=== PATIENT | male | born 1940 | race Caucasian/White ===

== ENCOUNTER 2019-01-17 16:03 | Emergency (ER) | payer MEDICARE, OTHER ==
[~2019-01-17] VITALS: Ht 175.3 cm; Wt 95.5 kg
[~2019-01-17 16:03] MED LIST: CALAMINE LOTIO177 ML TP; CYCLOBENZAPRINE10 MG PO; ELAVIL10 MG PO; FISH OIL 1,0001 CA1 PO; FLOMAX0.4 MG PO; HYDROCODONE-APA1 TAB PO; LORTAB 5/500 TA1 TA2 PO; NORVASC2.5 MG PO; PRAVACHOL40 MG PO; ZOVIRAX800 MG PO; ZYLOPRIM300 MG PO; [UNRECOGNIZED DRUG - OTHER] PO
[2019-01-17 16:05] VITALS: BP 121/71; Ht 175.3 cm; Wt 95.5 kg
[2019-01-17 16:28] LABS: BASOPHILS 0.1 % (0-2); EOSINOPHILS 0.6 % (0-7); HEMATOCRIT 28.4 % (42.0-54.0); HEMOGLOBIN 9.4 g/dL (13.5-17.5); IMMATURE GRANULOCYTES 0.1 % (0-5); LYMPHOCYTES 13.3 % (15-50); MCH 33.2 pg (26.0-34.0); MCHC 33.1 g/dL (31.0-37.0); MCV 100.4 fL (80.0-100.0); MEAN PLATELET VOLUME 10.7 fL (7.4-10.4); NEUTROPHILS 74.9 % (40-80); RBC 2.83 10x6/uL (4.20-6.10); RDW 13.4 % (11.5-14.5); WBC 8.1 10x3/uL (4.8-10.8)
[2019-01-17 16:39] LABS: PLATELET COUNT 207 10x3/uL (130-400)
[2019-01-17 16:46] LABS: APTT 33.9 SECONDS (22.8-39.4); INR 1.18 (0.85-1.17); PROTIME 14.5 SECONDS (11.6-15.0)
[2019-01-17 16:51] LABS: ALBUMIN 2.9 g/dL (3.4-5.0); ALKALINE PHOSPHATASE 79 U/L (46-116); ALT (SGPT) 21 U/L (10-68); BILIRUBIN - TOTAL 0.84 mg/dL (0.2-1.3); CALC OSMOLALITY 291 mosm/kg (275-300); CALCIUM 8.7 mg/dL (8.5-10.1); CARBON DIOXIDE 22.9 mmol/L (21.0-32.0); CHLORIDE - SERUM 101 mmol/L (98-107); CREATININE - SERUM 3.2 mg/dL (0.6-1.3); GLUCOSE 104 mg/dL (74-106); POTASSIUM - SERUM 4.5 mmol/L (3.5-5.1); PROTEIN - SERUM 7.4 g/dL (6.4-8.2); SODIUM 136 mmol/L (136-145); UREA NITROGEN 69 mg/dL (7-18); eGFR NON AFRICAN AMERICAN 20 mL/min (90-120)
[2019-01-17 17:03] LABS: CREATINE KINASE 87 UL (21-232); MAGNESIUM - SERUM 1.7 mg/dL (1.8-2.4); TROPONIN-I 0.039 ng/mL (0.000-0.060)
--- NOTE | 2019-01-21 13:14 | HP ---
PATIENT: NAYAN TATUM MEDICAL RECORD: [id number] ACCOUNT: [id number] LOCATION:[facility] : 39 ADMISSION DATE: 01/17/19 PCP: LYNN MEANS DO HISTORY AND PHYSICAL EXAMINATION HISTORY OF PRESENT ILLNESS: Mr. Tatum is a 78-year-old white male that is in the clinic today complaining of increasing shortness of breath for the last week or so. His normal oxygen saturation on room air runs in the mid to upper 90s, has to wear oxygen at night. Since Sunday, it has been running in the mid 80s without oxygenation. He had an echo done on Sunday, which revealed normal left ejection fraction. There was some grade I diastolic dysfunction. There was no significant valvular issues. A copy of this echo is sent with the patient. Today his chest x-ray shows a moderate left-sided pleural effusion. After his echo, he was sent to the Emergency Room because of hypoxia. He was seen in the Emergency Room, but left AMA because he felt he needed to see a correctional officer chief. The ER physician felt this was more of a renal issue. His creatinine had jumped from his baseline of around 2.2 to over 3. Over the weekend, he has been wearing his oxygen around the clock and states his weight has stayed about the same. As long as he stays perfectly still, he does fine. When he moves around, he has shortness of breath. He has a history of previous vugwf-dy-wmvfjde renal failure several years ago that was secondary to an obstructive uropathy. He underwent urological procedure by Dr. Lowry and that has improved since then. He denies any voiding issues at this time. PAST MEDICAL AND CURRENT MEDICAL HISTORY: Significant for GERD, lower limb weakness, chronic low back pain, neuropathy, obesity, chronic renal insufficiency, hyperlipidemia, hypertension, obstructive sleep disorder, gout, and BPH. PAST SURGICAL HISTORY: Include a previous tibia fracture, hernia repair in 2014, colonoscopy secondary to polyps in 2013, a cystoscopy with stent placement in 2013, and a hernia repair in 2011, cataract surgery in 2006 in 2005. ALLERGIES AND INTOLERANCES: INCLUDE SULFA. HOME MEDICATIONS: Include L-methylfolate/B6/B12 /2 one tablet a day, omeprazole 20 mg a day, furosemide 20 mg a day, tamsulosin 0.4 daily, amlodipine 2.5 mg once a day, allopurinol 100 mg a day, omega 3, and clotrimazole cream as needed. FAMILY HISTORY: Noncontributory. SOCIAL HISTORY: The patient is a former smoker. He does not drink alcohol. REVIEW OF SYSTEMS: Significant for recent increasing shortness of breath that is markedly worsened with any type of exertion. He denies any chest pain. He denies any palpitation. He does drink water on a pretty steady basis. He does complain of some increasing edema of his lower extremities. He denies any chest pain. He denies any abdominal pain, constipation or diarrhea. PHYSICAL EXAMINATION: GENERAL: He is obese. He is in no distress. He is wearing O2 at this time. HEENT: Sclerae nonicteric. HEART: Regular at this time with the rate in the 80s. LUNGS: Clear. HISTORY AND PHYSICAL [id number] NAYAN TATUM ABDOMEN: With diminished breath sounds in the left with some rales. EXTREMITIES: Reveal 2+ edema. NEUROLOGIC: Without any gross focal deficits. Gait, he ambulates with a walker. IMPRESSION: 1. Bklpc-ze-twhhtbd renal failure. 2. Suspect congestive heart failure secondary to fpjdo-vb-zyvxfym renal failure. 3. Hypoxia. 4. Obesity. 5. Hypertension. 6. Gout. 7. Neuropathy. 8. Gastroesophageal reflux disease. 9. Chronic renal insufficiency. 10. Obstructive sleep disorder. PLAN: Admit. We will send copy of echo with the patient. He had nephrology and cardiology consults. Start some IV Lasix. See orders for rest of plan. TRANSINT:[id number] Voice Confirmation ID: [id number] DOCUMENT ID: [id number] LYNN MEANS DO at 1314 CC: [id number] DICTATION DATE: 01/20/19 1412 TOP HAT BODY MAKER: 01/20/19 1430 DEP ER 01/17/19 [facility] [address] [place] [address]
== END 2019-01-17 19:26 | disposition left against medical advice (07) ==
LOC: D.ER 16:03
PROVIDERS: Emergency Medicine
DX: E87.70 Fluid overload, unspecified (principal); D64.9 Anemia, unspecified; J90 Pleural effusion, not elsewhere classified; N28.9 Disorder of kidney and ureter, unspecified; R06.02 Shortness of breath

== ENCOUNTER 2019-01-20 15:20 | Inpatient (IN) | payer OTHER ==
[~2019-01-20] VITALS: Ht 175.3 cm; Wt 93.6 kg
[2019-01-20] MEDS ORDERED: LASIX20 MG PO (15:48)
[2019-01-20] MEDS ORDERED: OMEPRAZOLE20 M1 PO (15:49)
[2019-01-20 15:50] VITALS: BP 140/72; BMI 30.5
--- NOTE | 2019-01-20 16:41 | NUR ---
1545-RECEIVED TO ROOM VIA WHEELCHAIR WITH GLASSES ON. PLACED ON NASAL CANNULA AT 2L. PATIENT HAS 2+ EDEMA TO BILATERAL LOWER LEGS. FALL PRECAUTIONS IN PLACE ALAON WITH GLADIS MAT ALARM ON AND EXPLAINED TO PATIENT. CALL LIGHT IN USE.
--- NOTE | 2019-01-20 16:50 | NUR ---
URINE TO LAB ORDERED.
[2019-01-20 16:56] LABS: BASOPHILS 0.1 % (0-2); EOSINOPHILS 0.6 % (0-7); HEMATOCRIT 27.9 % (42.0-54.0); HEMOGLOBIN 9.3 g/dL (13.5-17.5); IMMATURE GRANULOCYTES 0.3 % (0-5); LYMPHOCYTES 15.7 % (15-50); MCH 33.1 pg (26.0-34.0); MCHC 33.3 g/dL (31.0-37.0); MCV 99.3 fL (80.0-100.0); MEAN PLATELET VOLUME 11.3 fL (7.4-10.4); MONOCYTES 13.2 % (2-11); NEUTROPHILS 70.1 % (40-80); RBC 2.81 10x6/uL (4.20-6.10); RDW 13.2 % (11.5-14.5)
[2019-01-20 16:57] LABS: PLATELET COUNT 254 10x3/uL (130-400)
[2019-01-20 17:13] LABS: APPEARANCE HAZY (CLEAR); BILIRUBIN NEGATIVE (NEGATIVE); COLOR YELLOW (YELLOW); GLUCOSE NEGATIVE (NEGATIVE); KETONE NEGATIVE (NEGATIVE); NITRITE NEGATIVE (NEGATIVE); PROTEIN 1+ mg/dL (NEGATIVE); SPECIFIC GRAVITY 1.015 (1.005-1.020); UROBILINOGEN NORMAL (NORMAL)
[2019-01-20 17:15] LABS: EPITHELIAL CELLS 0-5 /hpf (0-5); RED CELLS - URINE 0-5 /hpf (0-5); WHITE CELLS - URINE 25-50 /hpf (0-5)
[2019-01-20 17:15] LABS: ALBUMIN 2.8 g/dL (3.4-5.0); ALKALINE PHOSPHATASE 79 U/L (46-116); ALT (SGPT) 27 U/L (10-68); BILIRUBIN - TOTAL 0.71 mg/dL (0.2-1.3); CALC OSMOLALITY 295 mosm/kg (275-300); CALCIUM 8.5 mg/dL (8.5-10.1); CARBON DIOXIDE 23.4 mmol/L (21.0-32.0); CHLORIDE - SERUM 101 mmol/L (98-107); GLUCOSE 96 mg/dL (74-106); POTASSIUM - SERUM 5.1 mmol/L (3.5-5.1); PROTEIN - SERUM 6.6 g/dL (6.4-8.2); SODIUM 137 mmol/L (136-145); UREA NITROGEN 75 mg/dL (7-18); eGFR NON AFRICAN AMERICAN 21 mL/min (90-120)
[2019-01-20 17:21] LABS: MAGNESIUM - SERUM 1.7 mg/dL (1.8-2.4); PHOSPHOROUS 4.1 mg/dL (2.5-4.9); TROPONIN-I < 0.017 ng/mL (0.000-0.060)
[2019-01-20 17:25] LABS: BACTERIA MODERATE /hpf (NONE SEEN)
[2019-01-20 18:17] LABS: ERYTHROCYTE SEDIMENTATION RATE 120 mm/hr (0-20)
--- NOTE | 2019-01-20 19:15 | NUR ---
ALERT/AWAKE ORIENTED X4. RR 18 EVEN NON-LABORED ON 02 AT 2L/NC. TELEMETRY SHOWS 145 AFLUTTER. CARDIZEM/TIAZAC 125MG PO HAD BEEN GIVEN AT 1752. WILL CONT TO MONITOR CLOSELY. DENIES PAIN OR ANY NEEDS.
[2019-01-20 20:00] VITALS: BP 106/55
[2019-01-20 20:04] LABS: % SATURATION 16 % (15-55); IRON 29 ug/dl (35-150); TOTAL IRON BIND CAPACITY 176 ug/dl (260-445); UNSAT IRON BIND CAPACITY 147 ug/dl (150-375)
--- NOTE | 2019-01-20 21:55 | NUR ---
ADMIN SCHED LEVAQUIN PO WITH SIPS OF WATER SWALLOWING WITHOUT DIFFICULTY. TELEMETRY SHOWS 122 ATRIAL FLUTTER. DENIES ANY DISCOMFORTS. STATING HE WANTS THE LIGHTS OUT TO SLEEP.
[2019-01-21 00:59] VITALS: BP 102/60
[2019-01-21 07:16] LABS: ANION GAP 16.5 mmol/L (8-16); CALCIUM 8.4 mg/dL (8.5-10.1); CREATININE - SERUM 3.5 mg/dL (0.6-1.3); POTASSIUM - SERUM 4.5 mmol/L (3.5-5.1)
[2019-01-21 07:24] LABS: BASOPHILS 0.1 % (0-2); EOSINOPHILS 0.4 % (0-7); HEMATOCRIT 26.7 % (42.0-54.0); HEMOGLOBIN 8.8 g/dL (13.5-17.5); IMMATURE GRANULOCYTES 0.1 % (0-5); LYMPHOCYTES 14.1 % (15-50); MCH 32.7 pg (26.0-34.0); MCV 99.3 fL (80.0-100.0); MEAN PLATELET VOLUME 11.1 fL (7.4-10.4); MONOCYTES 12.9 % (2-11); NEUTROPHILS 72.4 % (40-80); PLATELET COUNT 274 10x3/uL (130-400); RBC 2.69 10x6/uL (4.20-6.10); RDW 13.1 % (11.5-14.5); WBC 7.8 10x3/uL (4.8-10.8)
--- NOTE | 2019-01-21 07:40 | NUR ---
ASSESSMENT COMPLETED. ALERT AND ORIENTEDTELEMERTY SHOWS FLUTTER 73. O2 AT 2 L/M PER NC. RIGHT WRIST SL. PT IS ON FALL RISK. DENIES ANY NEEDS. SR UP WITH CALL LIGHT IN REACH.
[2019-01-21 10:25] VITALS: BP 95/51
--- NOTE | 2019-01-21 11:51 | NUR ---
PT STARTED ON CORDARONE DRIP.
[2019-01-21 12:54] VITALS: Ht 175.3 cm; Wt 93.6 kg
--- NOTE | 2019-01-21 13:35 | NUR ---
I have reviewed this patient and I concur with the Shift Assessment completed by the Licensed Practical Nurse today this shift.
[2019-01-21 15:55] VITALS: BP 95/52
--- NOTE | 2019-01-21 17:45 | NUR ---
PT RESTING IN BED ALERT AND ORIENTED. PT ANXIOUS ABOUT TEST RESULTS. BED LOW CALL LIGHT WITHIN REACH BED LOW CALL LIGHT WITHIN REACH. WILL CONTINUE TO MONITOR.
[2019-01-21 18:30] VITALS: BP 100/56
[2019-01-21 20:48] VITALS: BP 101/58
[2019-01-22] VITALS (7 sets, daily range): BP systolic 99–118; BP diastolic 52–84
--- NOTE | 2019-01-22 00:58 | NUR ---
PT RESTING IN BED WITH EYES CLOSED RR EVEN AND UNLABORED. BED LOW CALL LIGHT WITHIN REACH. WILL CONTINUE TO MONITOR.
--- NOTE | 2019-01-22 03:32 | NUR ---
PT RESTING COMFORTABLY IN BED WITH EYES CLOSED. RR EVEN AND UNLABORED. IV INFUSING AT 17ML/HR. SEE MAR. BED LOW CALL LIGHT WITHIN REACH. WILL CONTINUE TO MONITOR.
[2019-01-22 06:22] LABS: ANION GAP 17.6 mmol/L (8-16); CALCIUM 8.3 mg/dL (8.5-10.1); CARBON DIOXIDE 22.4 mmol/L (21.0-32.0); CREATININE - SERUM 3.8 mg/dL (0.6-1.3)
[2019-01-22 06:31] LABS: BASOPHILS 0.2 % (0-2); EOSINOPHILS 0.5 % (0-7); HEMATOCRIT 24.1 % (42.0-54.0); IMMATURE GRANULOCYTES 0.2 % (0-5); LYMPHOCYTES 18.7 % (15-50); MCH 32.5 pg (26.0-34.0); MCHC 33.2 g/dL (31.0-37.0); MONOCYTES 12.4 % (2-11); PLATELET COUNT 236 10x3/uL (130-400); RBC 2.46 10x6/uL (4.20-6.10); RDW 13.1 % (11.5-14.5)
[2019-01-22 07:22] LABS: FOLATE (FOLIC ACID) - SERUM >20.0 ng/mL (>3.0)
--- NOTE | 2019-01-22 14:31 | NUR ---
Nutrition follow-up: Diet: Renal PO intake ~75% of last 3 meals Labs reviewed Wt: 208# RDN following.
--- NOTE | 2019-01-22 19:42 | NUR ---
PT RESTING IN BED. AAO, NOURISHMENT PROVIDED. PT HAS EDEMA NOTED LOWER EXTREM, FIXED SOCKS, SLIP FREE SOCKS. PT WILL CALL FOR ASSIST WHEN NEEDED. NAME AND DATE PLACED ON BOARD. WILL CPOC
--- NOTE | 2019-01-22 21:38 | NUR ---
NIGHT MEDS GIVEN. FIXED TELEMETRY. PT WILL CALL FOR ASSIST WHEN NEEDED. WILL CPOC
[2019-01-23] VITALS: BP 109/53
[2019-01-23 04:00] VITALS: BP 103/54
[2019-01-23 05:36] LABS: BASOPHILS 0 % (0-2); EOSINOPHILS 2.1 % (0-7); HEMATOCRIT 24.8 % (42.0-54.0); HEMOGLOBIN 8.2 g/dL (13.5-17.5); IMMATURE GRANULOCYTES 0.4 % (0-5); LYMPHOCYTES 20.3 % (15-50); MCH 32.3 pg (26.0-34.0); MCHC 33.1 g/dL (31.0-37.0); MCV 97.6 fL (80.0-100.0); MEAN PLATELET VOLUME 10.8 fL (7.4-10.4); MONOCYTES 11.7 % (2-11); NEUTROPHILS 65.5 % (40-80); PLATELET COUNT 263 10x3/uL (130-400); RBC 2.54 10x6/uL (4.20-6.10); RDW 13.1 % (11.5-14.5); WBC 4.7 10x3/uL (4.8-10.8)
[2019-01-23 05:53] LABS: ANION GAP 17.7 mmol/L (8-16); CALCIUM 8.5 mg/dL (8.5-10.1); POTASSIUM - SERUM 3.7 mmol/L (3.5-5.1)
--- NOTE | 2019-01-23 06:46 | NUR ---
PT COMPLAINS OF AN INCREASED COUGH THAT IS PRODUCTIVE AT TIMES. ASKED IF ON A MEDICATION THAT COULD CAUSE COUGHING. ANSWERED QUESTIONS NURSE COULD. LASIX GIVEN ORDERED AND RETIMED. PT DENIES ANY OTHER NEEDS. WILL CPOC
[2019-01-23 08:06] VITALS: BP 110/62
[2019-01-23 11:45] VITALS: BP 105/83
--- NOTE | 2019-01-23 19:40 | NUR ---
BED LOW AND CALL LIGHT PUT WITH IN REACH PT MADE SEVERAL COMFORT REQUESTS AT THIS TIME. ALERT AND ORIENTED. IV AT TKO TO RT WRIST SKIN WARM AND DRY ...2LNC IN PLACE. LUNGS WITH SOME COURSENESS BUT GOOD AIR FLOW.
[2019-01-23 20:00] VITALS: BP 119/58
[2019-01-24 04:00] VITALS: BP 113/58
[2019-01-24 05:50] LABS: BASOPHILS 0.2 % (0-2); EOSINOPHILS 2.6 % (0-7); HEMATOCRIT 24.4 % (42.0-54.0); HEMOGLOBIN 8.1 g/dL (13.5-17.5); IMMATURE GRANULOCYTES 0.4 % (0-5); LYMPHOCYTES 19.5 % (15-50); MCH 32.7 pg (26.0-34.0); MCHC 33.2 g/dL (31.0-37.0); MCV 98.4 fL (80.0-100.0); MEAN PLATELET VOLUME 10.8 fL (7.4-10.4); MONOCYTES 11.8 % (2-11); NEUTROPHILS 65.5 % (40-80); PLATELET COUNT 256 10x3/uL (130-400); RBC 2.48 10x6/uL (4.20-6.10); RDW 13.2 % (11.5-14.5); WBC 4.6 10x3/uL (4.8-10.8)
[2019-01-24 05:57] LABS: ANION GAP 17.3 mmol/L (8-16); CALCIUM 8.5 mg/dL (8.5-10.1); CARBON DIOXIDE 21.8 mmol/L (21.0-32.0); CREATININE - SERUM 4.1 mg/dL (0.6-1.3); POTASSIUM - SERUM 4.1 mmol/L (3.5-5.1)
[2019-01-24 07:44] VITALS: BP 115/68
[2019-01-24 11:18] VITALS: BP 103/60
[2019-01-24 16:12] VITALS: BP 110/59
--- NOTE | 2019-01-24 19:42 | NUR ---
EVENING ROUNDS COMPLETED. REPORT RECEIVED. PT SITTING UP IN BED WITH EYES CLOSED, RR EVEN AND UNLABORED. NO S/S OF DISTRESS NOTED. OXYGEN AR 2.5 LITERS BY NASAL CANNULA. SIDE RAILS UP X2. WHITE BOARD UPDATED. CALL LIGHT IN REACH. WILL CTM.
[2019-01-24 21:01] VITALS: BP 103/53
[2019-01-25] VITALS (7 sets, daily range): BP systolic 113–140; BP diastolic 52–104
--- NOTE | 2019-01-25 00:21 | NUR ---
IV RESITED TO LEFT WRIST, 22 GAUGE
--- NOTE | 2019-01-25 02:59 | NUR ---
I have reviewed this patient and I concur with the Shift Assessment completed by the Licensed Practical Nurse today this shift.
[2019-01-25 04:57] LABS: BASOPHILS 0.2 % (0-2); EOSINOPHILS 2.4 % (0-7); HEMATOCRIT 24.8 % (42.0-54.0); HEMOGLOBIN 8.2 g/dL (13.5-17.5); IMMATURE GRANULOCYTES 0.5 % (0-5); MCH 32.4 pg (26.0-34.0); MCHC 33.1 g/dL (31.0-37.0); MEAN PLATELET VOLUME 10.4 fL (7.4-10.4); MONOCYTES 11.7 % (2-11); NEUTROPHILS 62.2 % (40-80); PLATELET COUNT 272 10x3/uL (130-400); RBC 2.53 10x6/uL (4.20-6.10); RDW 13.3 % (11.5-14.5); WBC 4.2 10x3/uL (4.8-10.8)
[2019-01-25 05:13] LABS: ANION GAP 16.6 mmol/L (8-16); CALCIUM 8.2 mg/dL (8.5-10.1); CREATININE - SERUM 4.1 mg/dL (0.6-1.3); POTASSIUM - SERUM 3.6 mmol/L (3.5-5.1)
--- NOTE | 2019-01-25 07:59 | NUR ---
PATIENT IS AWAKE AND ALERT. RECIEVED REPORT. PATIENT DENIES ANY OTHER NEEDS AT THIS TIME.
--- NOTE | 2019-01-25 18:16 | NUR ---
I have reviewed this patient and I concur with the Shift Assessment completed by the Licensed Practical Nurse today this shift.
--- NOTE | 2019-01-25 19:40 | NUR ---
EVENING ROUNDS COMPLETED. REPORT RECEIVED. PT SITTING UP IN BED WITH EYES OPEN, RR EVEN AND UNLABORED. OXYGEN AT 2.5 LITERS BY NASAL CANNULA. INTRODUCED SELF TO PT. PT DENIES FURTHER NEEDS AT THIS TIME. LEFT WRIST INFUSING NORMAL SALINE @ KVO. BED IN LOW POSITION. CALL LIGHT IN REACH. WILL CTM.
--- NOTE | 2019-01-26 03:36 | NUR ---
I have reviewed this patient and I concur with the Shift Assessment completed by the Licensed Practical Nurse today this shift.
[2019-01-26 05:41] LABS: BASOPHILS 0.2 % (0-2); EOSINOPHILS 2.1 % (0-7); HEMATOCRIT 24.5 % (42.0-54.0); IMMATURE GRANULOCYTES 0.2 % (0-5); MCH 32.3 pg (26.0-34.0); MCHC 32.7 g/dL (31.0-37.0); MCV 98.8 fL (80.0-100.0); MEAN PLATELET VOLUME 10.1 fL (7.4-10.4); MONOCYTES 12.9 % (2-11); NEUTROPHILS 60.6 % (40-80); PLATELET COUNT 255 10x3/uL (130-400); RBC 2.48 10x6/uL (4.20-6.10); RDW 13.5 % (11.5-14.5); WBC 4.2 10x3/uL (4.8-10.8)
[2019-01-26 05:51] VITALS: BP 112/50
[2019-01-26 06:14] LABS: ALBUMIN 2.2 g/dL (3.4-5.0); ANION GAP 15.7 mmol/L (8-16); BILIRUBIN - TOTAL 0.19 mg/dL (0.2-1.3); CALCIUM 8.3 mg/dL (8.5-10.1); CARBON DIOXIDE 21.8 mmol/L (21.0-32.0); CREATININE - SERUM 4.1 mg/dL (0.6-1.3); POTASSIUM - SERUM 3.5 mmol/L (3.5-5.1); PROTEIN - SERUM 6.2 g/dL (6.4-8.2)
[2019-01-26] MEDS ORDERED: METHYL B (10:16)
--- NOTE | 2019-01-26 12:23 | MORECARE ---
CASE MANAGEMENT DISCHARGE SUMMARY PATIENT: NAYAN TATUM UNIT: [id number] ADM DATE: 01/20/19 AGE: 78 : 39 SEX: M ROOM/BED: D.211 AUTHOR: KERI GARCIA PHYSICIAN: REFERRING PHYSICIAN: RENEE RAMOS MD DATE OF SERVICE: 01/26/19 Discharge Plan Patient Name: NAYAN TATUM Facility: [facility]:[place] : 1940 Planned Disposition: Inpatient Rehab Anticipated Discharge Date: 01/29/19 Discharge Date: Expected LOS: 9 Initial Reviewer: [email or web address] Initial Review Date: 01/26/2019 Generated: 01/26/19 1:23 pm DCPIA - Discharge Planning Initial Assessment Updated by [email or web address]: Jeny Arriaga on 01/26/19 12:20 pm * Is the patient Alert and Oriented? Yes * How many steps to enter\exit or inside your home? * PCP DR. MEANS * [facility] [place] * Preadmission Environment Home Alone * ADLs Independent * Equipment Oxygen Rolling Walker * Other Equipment BUILT IN SHOWER CHAIR 02 AT [facility] * List name and contact numbers for known caregivers / representatives who currently or will assist patient after discharge: MELONIE SANDHU ([facility]) [phone] EMERGENCY CONTACT * Verbal permission to speak to the caregivers and representatives has been obtained from the patient. Yes * Community resources currently utilized None * Additional services required to return to the preadmission environment? Yes * Can the patient safely return to the preadmission environment? Yes * Has this patient been hospitalized within the prior 30 days at any hospital? No Patient Name: NAYAN TATUM Page [id number] at 1223 All edits/amendments must be made on the electronic document DICTATION DATE: 01/26/19 1222 FURNACE RELINER: KIRAN 01/26/19 1222 RPT#: [id number] DC DATE: STATUS: ADM IN [facility] [address] [place] [address] END OF REPORT
--- NOTE | 2019-01-26 12:30 | MORECARE ---
CASE MANAGEMENT DISCHARGE SUMMARY PATIENT: NAYAN TATUM UNIT: [id number] ADM DATE: 01/20/19 AGE: 78 : 39 SEX: M ROOM/BED: D.2112 AUTHOR: JOSE,DOC PHYSICIAN: REFERRING PHYSICIAN: RENEE RAMOS MD DATE OF SERVICE: 01/26/19 Discharge Plan Patient Name: NAYAN TATUM Facility: [facility]:[place] : 1940 Planned Disposition: Inpatient Rehab Anticipated Discharge Date: 01/29/19 Discharge Date: Expected LOS: 9 Initial Reviewer: [email or web address] Initial Review Date: 01/26/2019 Generated: 01/26/19 1:29 pm Comments DCP- Discharge Planning Updated by [email or web address]: Jeny Arriaga on 01/26/19 11:[address] Patient Name: NAYAN TATUM Admission Status: Elective Accout number: [id number] Admission Date: 01-20-2019 : 1940 Admission Diagnosis:FLUID OVERLOAD, UNSPECIFIED Attending: RENEE RAMOS Current LOS: 6 Anticipated DC Date: 01-29-2019 Planned Disposition: Inpatient Rehab Primary Insurance: [employer] PPO Discharge Planning Comments: CM MET WITH PATIENT REGARDING D/C NEEDS AND PLANS. PATIENT STATES HE LIVES ALONE AND WILL BE GOING TO REHAB AT DISCHARGE. PATIENT STATED HE IS INDEPENDENT AT HOME AND HAS A WALKER, BUILT IN SHOWER CHAIR, AND O2 AT . [facility] IS THE PROVIDER OF O2. PATIENTS PCP IS DR. MEANS AND PHARMACY IS [facility] IN [place]. CM SPOKE WITH FERNANDA IN PT AND HE STATED PATIENT NEEDS REHAB. CM PRESENTED THE CHOICE FORM FOR REHAB AND PATIENT WANTED ONLY IP REHAB AND WOULD NOT CHOOSE ANOTHER. CM EXPLAINED THAT IP MAY NOT ACCEPT HIS INSURANCE AND HE STATED HE WANTED TO WAIT AND SEE SUNDAY. CM WILL CONTINUE TO FOLLOW PATIENT WITH D/C NEEDS AND PLANS. PCP [facility] [place] Janitor: Jeny Arriaga DCPIA - Discharge Planning Initial Assessment Updated by [email or web address]: Jeny Arriaga on 01/26/19 12:20 pm * Is the patient Alert and Oriented? Yes * How many steps to enter\exit or inside your home? * PCP DR. MEANS * Pharm[facility] [place] * Preadmission Environment Home Alone * ADLs Independent * Equipment Oxygen Rolling Walker * Other Equipment BUILT IN SHOWER CHAIR 02 AT [facility] * List name and contact numbers for known caregivers / representatives who currently or will assist patient after discharge: MELONIE SANDHU ([facility]) [phone] EMERGENCY CONTACT * Verbal permission to speak to the caregivers and representatives has been obtained from the patient. Yes * Community resources currently utilized None * Additional services required to return to the preadmission environment? Yes * Can the patient safely return to the preadmission environment? Yes * Has this patient been hospitalized within the prior 30 days at any hospital? No Coverage Notice Reviewer: [id number] Darren Arriaga Notice Issued Date-Time: 01/26/2019 12:00 Notice Type: Patient Choice Letter Notice Delivered To: Patient Relationship to Patient: Bindery Machine Operator Name: Delivery Method: HAND - Hand Delivered Floresita Days: Prior Verbal Notification: Recipient Understood Notice: Yes Recipient Signature: Yes Med Rec Note Co-signed by Attending: Coverage Notice Comment: PATIENT CHOSE IP REHAB WOULD NOT CHOOSE ANOTHER ONE Last DP export: 01/26/19 11:23 a Patient Name: NAYAN TATUM Page 80040 at 1230 All edits/amendments must be made on the electronic document DICTATION DATE: 01/26/191228 SUPERVISOR INSTRUMENT MECHANICS: KIRAN 01/26/19 1229 RPT#: [id number] DC DATE: STATUS: ADM IN [facility] [address] [place] [address] END OF REPORT
[2019-01-26 12:46] VITALS: BP 109/68
[2019-01-26 18:31] VITALS: BP 100/58
--- NOTE | 2019-01-26 19:31 | NUR ---
EVENING ROUNDS COMPLETED. REPORT RECEIVED. PT SITTING UP IN BED WITH EYES OPEN, RR EVEN AND UNLABORED. OXYGEN AT 2.5 LITERS BY NASAL CANNULA. BED IN LOW POSITION. INTRODUCED SELF TO PT. PT DENIES FURTHER NEEDS AT THIS TIME. NORMAL SALINE INFUSING AT KVO THROUGH LEFT WRIST PIV. CALL LIGHT IN REACH. WILL CTM.
[2019-01-26 20:07] VITALS: BP 125/40
[2019-01-27 00:02] VITALS: BP 119/58
--- NOTE | 2019-01-27 04:25 | NUR ---
I have reviewed this patient and I concur with the Shift Assessment completed by the Licensed Practical Nurse today this shift.
[2019-01-27 05:36] LABS: HEMOGLOBIN 8.1 g/dL (13.5-17.5); LYMPHOCYTES 22.3 % (15-50); MCHC 33.8 g/dL (31.0-37.0); PLATELET COUNT 241 10x3/uL (130-400); RBC 2.38 10x6/uL (4.20-6.10); RDW 13.5 % (11.5-14.5); WBC 4.4 10x3/uL (4.8-10.8)
[2019-01-27 05:38] LABS: MCV 100.8 fL (80.0-100.0)
[2019-01-27 05:40] LABS: ALBUMIN 2.2 g/dL (3.4-5.0); ANION GAP 13.3 mmol/L (8-16); BILIRUBIN - TOTAL 0.25 mg/dL (0.2-1.3); CALCIUM 8.1 mg/dL (8.5-10.1); CREATININE - SERUM 3.9 mg/dL (0.6-1.3); POTASSIUM - SERUM 3.3 mmol/L (3.5-5.1); PROTEIN - SERUM 6.1 g/dL (6.4-8.2)
[2019-01-27 06:01] VITALS: BP 86/59
[2019-01-27 07:48] VITALS: BP 111/55
[2019-01-27 11:20] VITALS: BP 115/57
--- NOTE | 2019-01-27 12:56 | NUR ---
ALERT AND ORIENTED X4. UP TO RESTROOM. HR 153 FLUTTER ON TELEMETRY. ASSIST BACK TO BED. CONKLIN. HR 146 FLUTTER. CALL MARGIE SMITH.
--- NOTE | 2019-01-27 13:10 | NUR ---
Nutrition Follow Up: Renal diet with 100% intake of meals BM yesterday Weight 199lb Pt has been eating good but did not eat lunch today due to nausea. Pt does not feel well at this time but reports no nutritional requests Will follow up per protocol
--- NOTE | 2019-01-27 13:22 | NUR ---
CALL REPORT HR CHANGE. 10mg BOLUS CARDIZEM ORDERED IV VIA TELEPHONE. ADMINISTER IV CARDIZEM ORDERED OVER 5 MINUTES. HR-110 FLUTTER ON TELEMETRY. CONTINUE PLAN OF CARE AND SAFETY PRECAUTIONS.
[2019-01-27 13:43] LABS: MAGNESIUM - SERUM 1.7 mg/dL (1.8-2.4); T4 THYROXIN - FREE 0.85 ng/dL (0.76-1.46); THYROID STIMULATING HORMONE 3.45 uIU/mL (0.36-3.74)
[2019-01-27 14:41] VITALS: BP 97/53
--- NOTE | 2019-01-27 19:30 | NUR ---
ASSISTED UP TO TOILET TOLERATED OK NO CHANGE ON MONITOR..BACK TO BED AND ASSISTED WITH COMFORT AND SNACK BED LOW AND CALL LIGHT IS IN REACH
[2019-01-27 21:48] VITALS: BP 90/52
[2019-01-28] VITALS (7 sets, daily range): BP systolic 82–117; BP diastolic 44–70
--- NOTE | 2019-01-28 03:42 | NUR ---
I have reviewed this patient and I concur with the Shift Assessment completed by the Licensed Practical Nurse today this shift.
[2019-01-28 05:46] LABS: BASOPHILS 0.1 % (0-2); EOSINOPHILS 0.2 % (0-7); IMMATURE GRANULOCYTES 0.2 % (0-5); LYMPHOCYTES 10.8 % (15-50); MCH 32.6 pg (26.0-34.0); MCHC 32.7 g/dL (31.0-37.0); MCV 99.5 fL (80.0-100.0); MEAN PLATELET VOLUME 10.4 fL (7.4-10.4); MONOCYTES 5.7 % (2-11); PLATELET COUNT 236 10x3/uL (130-400); RBC 2.21 10x6/uL (4.20-6.10); RDW 13.8 % (11.5-14.5)
[2019-01-28 06:41] LABS: ALBUMIN 2.3 g/dL (3.4-5.0); BILIRUBIN - TOTAL 0.31 mg/dL (0.2-1.3); CALCIUM 7.9 mg/dL (8.5-10.1); CARBON DIOXIDE 23.9 mmol/L (21.0-32.0); CREATININE - SERUM 3.8 mg/dL (0.6-1.3); PROTEIN - SERUM 5.3 g/dL (6.4-8.2)
[2019-01-28 06:51] LABS: ANION GAP 17.2 mmol/L (8-16); POTASSIUM - SERUM 4.1 mmol/L (3.5-5.1)
[2019-01-28 06:57] LABS: WBC 9.1 10x3/uL (4.8-10.8)
[2019-01-28 06:59] LABS: HEMOGLOBIN 7.2 g/dL (13.5-17.5)
--- NOTE | 2019-01-28 07:25 | NUR ---
ALERT AND ORIENTED X4. SITTING UP IN BED. CRITICAL LAB Hgb 7.2 CALLED TO MARGIE NEVILLE. 113 UNCONTROLLED AFIB ON TELEMETRY. DENIES ANY NEEDS. CONTINUE PLAN OF CARE AND SAFETY PRECAUTIONS.
--- NOTE | 2019-01-28 14:07 | NUR ---
ALERT AND ORIENTED X4. SITTING UP IN BED. NIECE AT BEDSIDE. UNCONTROLLED AFIB 102 ON TELEMETRY. BLOOD CONSENTS SIGNED ON CHART ON CHART. NO BM TODAY TO COLLECT. CONTINUE PLAN OF CARE AND SAFETY PRECAUTIONS.
--- NOTE | 2019-01-28 18:50 | NUR ---
ALERT AND ORIENTED X4. SITTING UP IN BED. INITIATE PRBC UNIT 1 TRANSFUSION. START TRANSFUSION RATE AT 75ml/HR FOR FIRST 15MINS. AFLUTTER ON TELEMETRY 70. DENIES ANY NEEDS AT THIS TIME. BP-106/51, R-16, O2 SAT 96% WITH 2.5L NC, T-98.6. REMAIN IN ROOM NEXT 15MINS TO MONITOR FOR REACTION. CONTINUE PLAN OF CARE AND SAFETY PRECAUTIONS.
--- NOTE | 2019-01-28 19:04 | NUR ---
ALERT AND ORIENTED X4. SITTING UP IN BED. NO SIGNS OF REACTION. INCREASE TRANSFUSION RATE TO 100mL/HR. T-97.9, R-16, O2 SAT-97% WITH 2.5L NC, BP-104/52. HAND OFF REPORT TO NIGHT NURSE
--- NOTE | 2019-01-28 19:33 | NUR ---
PT AWAKW AND ORIENTED X4 LOTS OF QUESTIONS ASKED ABOUT MEDS AND BLOOD TRANFUSIION. BED LOW SRX2 AND CALL LIGHT IN REACH
--- NOTE | 2019-01-28 19:36 | NUR ---
OT NOTE: PT COMPLETED BED MOB TASKS WITH MIN A. PT COMPLETED SIMPLE GROOMING WITH SET UP. THANK YOU, JOSE MARIA GARZA
--- NOTE | 2019-01-29 04:06 | NUR ---
I have reviewed this patient and I concur with the Shift Assessment completed by the Licensed Practical Nurse today this shift.
[2019-01-29 06:16] VITALS: BP 110/45
--- NOTE | 2019-01-29 07:30 | NUR ---
AM ROUNDS COMPLETED. INTRODUCED MYSELF TO PT PRIMARY RN FOR TODAYS SHIFT. PT IS A&O SITTING UP ON EDGE OF BED RESTING QUIETLY. SHIFT ASSESSMENT COMPLETED. PT STATES "IM GOING TO REHAB TODAY, OR SHOULD BE, GAUDENCIO BEEN HERE TOO LONG" EXPLAINED TO PT I WILL LOOK OVER EVERYTHING AND DISCUSS PLAN OF CARE. PT VOICED THANKS. NO CURRENT NEEDS. CL IN REACH, BED IN LOWEST, SIDE RAILS X2. WILL CPOC.
[2019-01-29 08:24] VITALS: BP 117/63
[2019-01-29 09:47] LABS: ALBUMIN 2.4 g/dL (3.4-5.0); ANION GAP 14.5 mmol/L (8-16); BASOPHILS 0.4 % (0-2); BILIRUBIN - TOTAL 0.41 mg/dL (0.2-1.3); CALCIUM 8.3 mg/dL (8.5-10.1); CARBON DIOXIDE 25.3 mmol/L (21.0-32.0); CREATININE - SERUM 3.7 mg/dL (0.6-1.3); EOSINOPHILS 1.3 % (0-7); HEMATOCRIT 26.1 % (42.0-54.0); IMMATURE GRANULOCYTES 1.3 % (0-5); LYMPHOCYTES 25.8 % (15-50); MCH 29.9 pg (26.0-34.0); MCHC 33.3 g/dL (31.0-37.0); MEAN PLATELET VOLUME 10.3 fL (7.4-10.4); MONOCYTES 13.6 % (2-11); NEUTROPHILS 57.6 % (40-80); PLATELET COUNT 224 10x3/uL (130-400); POTASSIUM - SERUM 3.8 mmol/L (3.5-5.1); PROTEIN - SERUM 5.7 g/dL (6.4-8.2); RDW 20.6 % (11.5-14.5)
[2019-01-29 09:48] LABS: MCV 89.7 fL (80.0-100.0); RBC 2.91 10x6/uL (4.20-6.10); WBC 5.6 10x3/uL (4.8-10.8)
[2019-01-29 09:49] LABS: HEMOGLOBIN 8.7 g/dL (13.5-17.5)
--- NOTE | 2019-01-29 11:02 | NUR ---
PT UP TO BEDSIDE CHAIR PERFORMING BED BATH HIMSELF. PT DENIES ANY HELP AND STATES HE IS FEELING PRETTY GOOD OVERALL AND HOPES TO GO TO REHAB SOON TO GET EVEN STRONGER. CL IN REACH, NO CURRRENT NEEDS. WILL CTM.
--- NOTE | 2019-01-29 11:20 | NUR ---
Rehab Prescreening Consult recieved and the chart has been reviewed. He is [employer] PPO Insurance which will require a preauth. All information will be submitted to them for review. Lucia Diane RN Clinical Liaison, Rehab
[2019-01-29 11:36] VITALS: BP 115/64
--- NOTE | 2019-01-29 15:00 | NUR ---
FAMILY AT BEDSIDE VISITING PT. PT INQUIRING ABOUT DISCHARGE HOWEVER NO NEW ORDERS. IT APPEARS WE ARE WAITING ON REHAB PLACEMENT AND ACCEPTANCE. WILL DISCUSS WITH PRIMARY AND CASE MANAGEMENT. PT VOICED THANKS AND DENIES ANY CURRENT PAIN OR NEEDS. CL IN REACH. WILL CPOC.
--- NOTE | 2019-01-29 15:16 | MORECARE ---
CASE MANAGEMENT DISCHARGE SUMMARY PATIENT: NAYAN TATUM UNIT: [id number] ADM DATE: 01/20/19 AGE: 78 : 39 SEX: M ROOM/BED: D.2112 AUTHOR: JOSE,DOC PHYSICIAN: REFERRING PHYSICIAN: RENEE RAMOS MD DATE OF SERVICE: 01/29/19 Discharge Plan Patient Name: NAYAN TATUM Facility: [facility]:[place] : 1940 Planned Disposition: Inpatient Rehab Anticipated Discharge Date: 01/30/19 Discharge Date: Expected LOS: 10 Initial Reviewer: [email or web address] Initial Review Date: 01/26/2019 Generated: 01/29/19 4:15 pm DCP- Discharge Planning Updated by [email or web address]: Jeny Arriaga on 01/26/19 11:[address] Patient Name: NAYAN TATUM Admission Status: Elective Accout number: [id number] Admission Date: 01-20-2019 : 1940 Admission Diagnosis:FLUID OVERLOAD, UNSPECIFIED Attending: RENEE RAMOS Current LOS: 6 Anticipated DC Date: 01-29-2019 Planned Disposition: Inpatient Rehab Primary Insurance: [employer] PPO Discharge Planning Comments: CM MET WITH PATIENT REGARDING D/C NEEDS AND PLANS. PATIENT STATES HE LIVES ALONE AND WILL BE GOING TO REHAB AT DISCHARGE. PATIENT STATED HE IS INDEPENDENT AT HOME AND HAS A WALKER, BUILT IN SHOWER CHAIR, AND O2 AT . [facility] IS THE PROVIDER OF O2. PATIENTS PCP IS DR. MEANS AND PHARMACY IS [facility] IN [place]. CM SPOKE WITH FERNANDA IN PT AND HE STATED PATIENT NEEDS REHAB. CM PRESENTED THE CHOICE FORM FOR REHAB AND PATIENT WANTED ONLY IP REHAB AND WOULD NOT CHOOSE ANOTHER. CM EXPLAINED THAT IP MAY NOT ACCEPT HIS INSURANCE AND HE STATED HE WANTED TO WAIT AND SEE SUNDAY. CM WILL CONTINUE TO FOLLOW PATIENT WITH D/C NEEDS AND PLANS. PCP [facility] [place] Real Estate Photographer: Jeny Arriaga DCPIA - Discharge Planning Initial Assessment Updated by [email or web address]: Jeny Arriaga on 01/26/19 12:20 pm * Is the patient Alert and Oriented? Yes * How many steps to enter\exit or inside your home? * PCP DR. MEANS * Pharmacy [facility] [place] * Preadmission Environment Home Alone * ADLs Independent * Equipment Oxygen Rolling Walker * Other Equipment BUILT IN SHOWER CHAIR 02 AT [facility] [place] [facility]IES * List name and contact numbers for known caregivers / representatives who currently or will assist patient after discharge: MELONIE SANDHU ([facility]) [phone] EMERGENCY CONTACT * Verbal permission to speak to the caregivers and representatives has been obtained from the patient. Yes * Community resources currently utilized None * Additional services required to return to the preadmission environment? Yes * Can the patient safely return to the preadmission environment? Yes * Has this patient been hospitalized within the prior 30 days at any hospital? No Coverage Notice Reviewer: [email or web address] Darren Arriaga Notice Issued Date-Time: 01/26/2019 12:00 Notice Type: Patient Choice Letter Notice Delivered To: Patient Relationship to Patient: Facing Grinder Name: Delivery Method: HAND - Hand Delivered Floresita Days: Prior Verbal Notification: Recipient Understood Notice: Yes Recipient Signature: Yes Med Rec Note Co-signed by Attending: Coverage Notice Comment: PATIENT CHOSE IP REHAB WOULD NOT CHOOSE ANOTHER ONE Last DP export: 01/26/19 11:30 a Patient Name: NAYAN TATUM Page 75050 at 1516 All edits/amendments must be made on the electronic document DICTATION DATE: 01/29/195 HOLLOW HANDLE BENCH WORKER: KIRAN 01/29/19 1515 RPT#: [id number] DC DATE: STATUS: ADM IN [facility] [address] [place] [address] END OF REPORT
--- NOTE | 2019-01-29 15:22 | MORECARE ---
CASE MANAGEMENT DISCHARGE SUMMARY PATIENT: NAYAN TATUM UNIT: [id number] ADM DATE: 01/20/19 AGE: 78 : 39 SEX: M ROOM/BED: D.2112 AUTHOR: JOSE,DOC PHYSICIAN: REFERRING PHYSICIAN: RENEE RAMOS MD DATE OF SERVICE: 01/29/19 Discharge Plan Patient Name: NAYAN TATUM Facility: [facility]:[employer] : 1940 Planned Disposition: Inpatient Rehab Anticipated Discharge Date: 01/30/19 Discharge Date: Expected LOS: 10 Initial Reviewer: [id number] Initial Review Date: 01/26/2019 Generated: 01/29/19 4:22 pm Comments DCP- Discharge Planning Updated by [id number]: Rafat Up on 01/29/19 2:[address] Patient Name: NAYAN TATUM Encounter No: [id number] : 1940 Primary Insurance: AET[employer] PPO Anticipated DC Date: 01-30-2019 Planned Disposition: Inpatient Rehab External Planned Provider: [facility] DCP follow-up note: CM RECEIVED CALL FROM MELY OF [facility] IN[facility], THEY HAVE SUBMITTED TO PT'S INSURANCE COMPANY FOR INSURANCE AUTHORIZATION FOR INPATIENT REHAB SERVICES. CM SPOKE TO PT WHO IS IN AGREEMENT WITH REHAB AT [place], REQUESTED PRIVATE ROOM. CM EXPLAINED THAT HE MAY HAVE TO SHARE A SEMI PRIVATE ROOM, PT REPORTS ACCEPTANCE AND UNDERSTANDING AND ONLY WANTS CM TO MAKE THE REQUEST TO REHAB. CM PROVIDED AND EXPLAINED IMPORTANT MESSAGE FROM MEDICARE. CM CALLED [facility] OF INPATIENT REHAB, RELAYED REQUEST FOR PRIVATE ROOM FOR REHAB. CM WAITING INSURANCE AUTHORIZATION OR DECLINATION FOR REHAB SERVICES AT [facility]. YARA Garrett DCP- Discharge Planning Updated by [id number]: Jeny Arriaga on 01/26/19 11:[address] Patient Name: NAYAN TATUM Admission Status: Elective Accout number: [id number] Admission Date: 01-20-2019 : 1940 Admission Diagnosis:FLUID OVERLOAD, UNSPECIFIED Attending: RENEE RAMOS Current LOS: 6 Anticipated DC Date: 01-29-2019 Planned Disposition: Inpatient Rehab Primary Insurance: AET[employer] PPO Discharge Planning Comments: CM MET WITH PATIENT REGARDING D/C NEEDS AND PLANS. PATIENT STATES HE LIVES ALONE AND WILL BE GOING TO REHAB AT DISCHARGE. PATIENT STATED HE IS INDEPENDENT AT HOME AND HAS A WALKER, BUILT IN SHOWER CHAIR, AND O2 AT . [facility] IS THE PROVIDER OF O2. PATIENTS PCP IS DR. MEANS AND PHARMACY IS [facility] IN [place]. CM SPOKE WITH FERNANDA IN PT AND HE STATED PATIENT NEEDS REHAB. CM PRESENTED THE CHOICE FORM FOR REHAB AND PATIENT WANTED ONLY IP REHAB AND WOULD NOT CHOOSE ANOTHER. CM EXPLAINED THAT IP MAY NOT ACCEPT HIS INSURANCE AND HE STATED HE WANTED TO WAIT AND SEE SUNDAY. CM WILL CONTINUE TO FOLLOW PATIENT WITH D/C NEEDS AND PLANS. PCP [facility] [place] Mixer Dry Food Products: Jeny Arriaga DCPIA - Discharge Planning Initial Assessment Updated by [email or web address]: Jeny Arriaga on 01/26/19 12:20 pm * Is the patient Alert and Oriented? Yes * How many steps to enter\exit or inside your home? * PCP DR. MEANS * Pharmacy [facility] IN [place] * Preadmission Environment Home Alone * ADLs Independent * Equipment Oxygen Rolling Walker * Other Equipment BUILT IN SHOWER CHAIR 02 AT - [facility] SUPPLIES * List name and contact numbers for known caregivers / representatives who currently or will assist patient after discharge: MELONIE SANDHU (JED) [phone] EMERGENCY CONTACT * Verbal permission to speak to the caregivers and representatives has been obtained from the patient. Yes * Community resources currently utilized None * Additional services required to return to the preadmission environment? Yes * Can the patient safely return to the preadmission environment? Yes * Has this patient been hospitalized within the prior 30 days at any hospital? No Coverage Notice Reviewer: [id number] - Jeny Arriaga Notice Issued Date-Time: 01/26/2019 12:00 Notice Type: Patient Choice Letter Notice Delivered To: Patient Relationship to Patient: Ginner Name: Delivery Method: HAND - Hand Delivered Floresita Days: Prior Verbal Notification: Recipient Understood Notice: Yes Recipient Signature: Yes Med Rec Note Co-signed by Attending: Coverage Notice Comment: PATIENT CHOSE IP REHAB WOULD NOT CHOOSE ANOTHER ONE Reviewer: [id number] - Rafat Up Notice Issued Date-Time: 01/29/2019 15:10 Notice Type: IM Discharge Notice Notice Delivered To: Patient Relationship to Patient: Ginner Name: Delivery Method: HAND - Hand Delivered Floresita Days: Prior Verbal Notification: Recipient Understood Notice: Yes Recipient Signature: Yes Med Rec Note Co-signed by Attending: Coverage Notice Comment: Last DP export: 01/29/19 2:15 p Patient Name: NAYAN TATUM Page 51060 at 1522 All edits/amendments must be made on the electronic document DICTATION DATE: 01/29/19 1522 CAT HOOKER: KIRAN 01/29/19 1522 RPT#: [id number] DC DATE: STATUS: ADM IN [facility] [address] [place] [address] END OF REPORT
[2019-01-29 15:23] VITALS: BP 108/61
--- NOTE | 2019-01-29 19:00 | NUR ---
BEDSIDE SHIFT REPORT COMPLETED. PT RESTING QUIETLY AND STATES HE HAD A GOOD DAY AND IS JUST HOPING TO DISCHARGE SOON. NO CURRENT NEEDS AT THIS TIME. CL IN REACH.
--- NOTE | 2019-01-29 19:20 | NUR ---
PATIENT LAYING IN BED. NO DISTRESS NOTED. NO COMPLAINTS AT THIS TIME.
[2019-01-29 20:00] VITALS: BP 109/64
[2019-01-30] VITALS: BP 121/78
--- NOTE | 2019-01-30 02:21 | NUR ---
PATIENT LAYING IN BED. EYES CLOSED, CHEST RISING AND FALLING. NO DISTRESS NOTED.
--- NOTE | 2019-01-30 03:14 | NUR ---
PATIENT LAYING IN BED. EYES CLOSED, CHEST RISING AND FALLING.
[2019-01-30 04:00] VITALS: BP 120/50
[2019-01-30 06:24] LABS: BASOPHILS 0 % (0-2); EOSINOPHILS 1.4 % (0-7); IMMATURE GRANULOCYTES 0.6 % (0-5); LYMPHOCYTES 26.9 % (15-50); MCH 30.4 pg (26.0-34.0); MCHC 33.3 g/dL (31.0-37.0); MCV 91.3 fL (80.0-100.0); MEAN PLATELET VOLUME 10.2 fL (7.4-10.4); MONOCYTES 8.1 % (2-11); PLATELET COUNT 249 10x3/uL (130-400); RBC 3.45 10x6/uL (4.20-6.10); RDW 19.8 % (11.5-14.5); WBC 6.4 10x3/uL (4.8-10.8)
[2019-01-30 06:31] LABS: HEMATOCRIT 31.5 % (42.0-54.0); HEMOGLOBIN 10.5 g/dL (13.5-17.5)
--- NOTE | 2019-01-30 06:38 | NUR ---
PATIENT LAYING IN BED. NO DISTRESS NOTED. NO COMPLAINTS AT THIS TIME.
[2019-01-30 06:45] LABS: ALBUMIN 2.8 g/dL (3.4-5.0); ANION GAP 16.3 mmol/L (8-16); BILIRUBIN - TOTAL 0.37 mg/dL (0.2-1.3); CALCIUM 8.6 mg/dL (8.5-10.1); CARBON DIOXIDE 25.3 mmol/L (21.0-32.0); CREATININE - SERUM 3.8 mg/dL (0.6-1.3); POTASSIUM - SERUM 3.6 mmol/L (3.5-5.1); PROTEIN - SERUM 6.5 g/dL (6.4-8.2)
--- NOTE | 2019-01-30 07:00 | NUR ---
PATIENT LAYING IN BED. IV LINE HAD HOLE IN IT AND LEAKING. IV LINE CHANGED WITH NO FURTHER ISSUES. NO DISTRESS NOTED. NO OTHER COMPLAINTS AT THIS TIME
--- NOTE | 2019-01-30 07:30 | NUR ---
A/A/OX4. DENIES ANY PAIN OR PROBLEMS AT PRESENT TIME AND NO REQUESTS VOICED. ASSESSMENT COMPLETED. IV PATENT TO LEFT WRIST. WILL CONTINUE POC.
[2019-01-30 08:00] VITALS: BP 119/66
--- NOTE | 2019-01-30 09:51 | NUR ---
Nutrition Follow Up: Renal diet with 75% average po intake Pt reports eating really well Last BM yesterday Weight 206lb on 01/28 Encouraged good po intake to help pt maintain strength RD following
[2019-01-30 12:11] VITALS: BP 95/62
--- NOTE | 2019-01-30 12:40 | NUR ---
I CONCUR WITH THE ASSESSMENT DONE ON THIS PATIENT PERFORMED BY SAIRA DUVAL.
--- NOTE | 2019-01-30 14:19 | NUR ---
Rehab Note- Spoke with Maricruz macias/ [facility] requesting more clinical information. Faxed at this time. Will continue to await determination on possible inpatient acute rehab auth. Thank you for this referral! Nancy Rodriguez RN Clinical Liaison, [facility] Rehab
--- NOTE | 2019-01-30 15:34 | NUR ---
OT NOTE: PT COMPLETED BED MOB WITH SBA. PT COMPLETED ADL MOB WITH MIN A WITH RW. PT COMPLETED GROOMING TASKS AT EOB WITH SET UP. [phone] THANK YOU, JOSE MARIA GARZA
[2019-01-30 16:00] VITALS: BP 110/65
--- NOTE | 2019-01-30 16:08 | NUR ---
Rehab Note- Visited with the patient, explained the PreAuth process & our acute inpatient rehab program. Very motivated to get into acute inpatient rehab. Called Maricruz CUNNINGHAM, Clinical Reviewer, of the the patient's pending auth- stated that she had all needed information and was curretnly with their biomedical equipment specialist and we should have a determination this evening, no later than the morning as their medical directors were currently in a meeting. Informed the patient of this also. Will continue to await determination for acute inpatient rehab. Nancy Rodriguez RN Clinical Liaison, [facility] Rehab
--- NOTE | 2019-01-30 23:50 | NUR ---
PATIENT LAYING IN BED, EYES CLOSED, CHEST RISING AND FALLING. NO DISTRESS NOTED.
[2019-01-31] VITALS: BP 120/71
[2019-01-31 04:00] VITALS: BP 103/67
--- NOTE | 2019-01-31 05:01 | NUR ---
PATIENT LAYING IN BED. NO COMPLAINTS AT THIS TIME. NO DISTRESS NOTED.
--- NOTE | 2019-01-31 07:30 | NUR ---
A/A/OX4. NO REQUESTS VOICED AND DENIES ANY PAIN OR DISCOMFORT. ASSESSMENT COMPLETED. STATES HE HOPES TO BE DISCHARGED HOME TODAY. WILL CONTINUE POC
[2019-01-31 08:22] VITALS: BP 111/67
[2019-01-31] MEDS ORDERED: CARDIZEM CD180 MG PO (11:55)
[2019-01-31] MEDS ORDERED: LASIX40 MG PO (11:56)
[2019-01-31] MEDS ORDERED: K-TAB10 MEQ PO (11:56)
[2019-01-31 12:12] VITALS: BP 120/78
--- NOTE | 2019-01-31 12:34 | NUR ---
Rehab Note- Received call from Maricruz w/ [facility] and that the Peer to Peer time frame has & now an "Expidited Appeals" can occur by contacting [phone], Ref#[id number]. That could be done by the physician, catalytic case operator, or the patient. Earlier this Am received voicemail from late yesterday afternoon from [facility] that the patient had been denied by their medical laboratory scientist Dr Sowmya Rubio, but a Peer to Peer could be set up by calling [phone] by noon today 01/31. Hand delivered info to DANI Calvin d/t the time frame that was placed on the peer to peer. Thank you for this referral! Nancy Rodriguez RN Clinical Liaison, [facility] Rehab
--- NOTE | 2019-01-31 13:10 | NUR ---
REVIEWED DISCHARGE INSTRUCTIONS WITH PT AND VERBALIZES UNDERSTANDING WITH NO QUESTIONS. MEDICATIONS THAT WERE SENT TO PHARMACY RETURNED TO PT. SL REMOVED WITH TIP INTACT. LEFT FLOOR VIA W/C WITH ALL PERSONAL BELONGINGS AND LEFT FACILITY VIA PRIVATE VEHICLE WITH FAMILY MEMBER.
--- NOTE | 2019-01-31 13:52 | NUR ---
OT NOTE: PT REFUSED THERAPY HE REPORTED THAT HE WAS WAITING FOR NEICE TO PICK HIM UP..REPORTED THAT HIS INSURANCE COMPANY DENIED REHAB AND THAT HE WAS GOING HOME WITH SERVICES. MICHAEL MORLEY, OTR/L
--- NOTE | 2019-01-31 14:06 | MORECARE ---
CASE MANAGEMENT DISCHARGE SUMMARY PATIENT: NAYAN TATUM UNIT: [id number] ADM DATE: 01/20/19 AGE: 78 : 39 SEX: M ROOM/BED: D.2112 AUTHOR: JOSE,DOC PHYSICIAN: REFERRING PHYSICIAN: RENEE RAMOS MD DATE OF SERVICE: 01/31/19 Discharge Plan Patient Name: NAYAN TATUM Facility: [facility]:[place] : 1940 Planned Disposition: Home with Home Health Anticipated Discharge Date: 01/31/19 Discharge Date: Expected LOS: 11 Initial Reviewer: [id number] Initial Review Date: 01/26/2019 Generated: 01/31/19 3:06 pm Comments DCP- Discharge Planning Updated by [id number]: Rafat Up on 01/29/19 2:[address] Patient Name: NAYAN TATUM Encounter No: [id number] : 1940 Primary Insurance: AETNA PPO Anticipated DC Date: 01-30-2019 Planned Disposition: Inpatient Rehab External Planned Provider: [facility] DCP follow-up note: CM RECEIVED CALL FROM MELY OF [facility], THEY HAVE SUBMITTED TO PT'S INSURANCE COMPANY FOR INSURANCE AUTHORIZATION FOR INPATIENT REHAB SERVICES. CM SPOKE TO PT WHO IS IN AGREEMENT WITH REHAB AT [place], REQUESTED PRIVATE ROOM. CM EXPLAINED THAT HE MAY HAVE TO SHARE A SEMI PRIVATE ROOM, PT REPORTS ACCEPTANCE AND UNDERSTANDING AND ONLY WANTS CM TO MAKE THE REQUEST TO REHAB. CM PROVIDED AND EXPLAINED IMPORTANT MESSAGE FROM MEDICARE. CM CALLED [facility] OF INPATIENT REHAB, RELAYED REQUEST FOR PRIVATE ROOM FOR REHAB. CM WAITING INSURANCE AUTHORIZATION OR DECLINATION FOR REHAB SERVICES AT [facility]. YARA Garrett DCP- Discharge Planning Updated by [id number]: Jeny Arriaga on 01/26/19 11:[address] Patient Name: NAYAN TATUM Admission Status: Elective Accout number: [id number] Admission Date: 01-20-2019 : 1940 Admission Diagnosis:FLUID OVERLOAD, UNSPECIFIED Attending: RENEE RAMOS Current LOS: 6 Anticipated DC Date: 01-29-2019 Planned Disposition: Inpatient Rehab Primary Insurance: AETNA PPO Discharge Planning Comments: CM MET WITH PATIENT REGARDING D/C NEEDS AND PLANS. PATIENT STATES HE LIVES ALONE AND WILL BE GOING TO REHAB AT DISCHARGE. PATIENT STATED HE IS INDEPENDENT AT HOME AND HAS A WALKER, BUILT IN SHOWER CHAIR, AND O2 AT . [facility] IS THE PROVIDER OF O2. PATIENTS PCP IS DR. MEANS AND PHARMACY IS [facility] IN [place]. CM SPOKE WITH FERNANDA IN PT AND HE STATED PATIENT NEEDS REHAB. CM PRESENTED THE CHOICE FORM FOR REHAB AND PATIENT WANTED ONLY IP REHAB AND WOULD NOT CHOOSE ANOTHER. CM EXPLAINED THAT IP MAY NOT ACCEPT HIS INSURANCE AND HE STATED HE WANTED TO WAIT AND SEE SUNDAY. CM WILL CONTINUE TO FOLLOW PATIENT WITH D/C NEEDS AND PLANS. PCP [facility] [place] Sales Merchandise Associate: Jeny Arriaga DCPIA - Discharge Planning Initial Assessment Updated by [id number]: Jeny Arriaga on 01/26/19 12:20 pm * Is the patient Alert and Oriented? Yes * How many steps to enter\exit or inside your home? * PCP DR. MEANS * Pharmacy [facility] IN [place] * Preadmission Environment Home Alone * ADLs Independent * Equipment Oxygen Rolling Walker * Other Equipment BUILT IN SHOWER CHAIR 02 AT - [facility] SUPPLIES * List name and contact numbers for known caregivers / representatives who currently or will assist patient after discharge: MELONIE SANDHU (JED) [phone] EMERGENCY CONTACT * Verbal permission to speak to the caregivers and representatives has been obtained from the patient. Yes * Community resources currently utilized None * Additional services required to return to the preadmission environment? Yes * Can the patient safely return to the preadmission environment? Yes * Has this patient been hospitalized within the prior 30 days at any hospital? No External Providers [facility] Next Contact Date: 01/31/2019 Service Request Date: Service Type: Resolution: Reviewer: Comments: Coverage Notice Reviewer: [id number] - Jeny Arriaga Notice Issued Date-Time: 01/26/2019 12:00 Notice Type: Patient Choice Letter Notice Delivered To: Patient Relationship to Patient: Folder Seamer Automatic Name: Delivery Method: HAND - Hand Delivered Floresita Days: Prior Verbal Notification: Recipient Understood Notice: Yes Recipient Signature: Yes Med Rec Note Co-signed by Attending: Coverage Notice Comment: PATIENT CHOSE IP REHAB WOULD NOT CHOOSE ANOTHER ONE Reviewer: [id number] Darren Up Notice Issued Date-Time: 01/29/2019 15:10 Notice Type: IM Discharge Notice Notice Delivered To: Patient Relationship to Patient: Folder Seamer Automatic Name: Delivery Method: HAND - Hand Delivered Floresita Days: Prior Verbal Notification: Recipient Understood Notice: Yes Recipient Signature: Yes Med Rec Note Co-signed by Attending: Coverage Notice Comment: Last DP export: 01/29/19 2:22 p Patient Name: NAYAN TATUM Page 05583 at 1406 All edits/amendments must be made on the electronic document DICTATION DATE: 01/31/19 140 SUPERVISOR [employer] FORMER: KIRAN 01/31/19 140 RPT#: [id number] DC DATE: STATUS: ADM IN [facility] [address] [place] [address] END OF REPORT
--- NOTE | 2019-01-31 14:25 | MORECARE ---
CASE MANAGEMENT DISCHARGE SUMMARY PATIENT: NAYAN TATUM UNIT: [id number] ADM DATE: 01/20/19 AGE: 78 : 39 SEX: M ROOM/BED: D.2112 AUTHOR: JOSE,DOC PHYSICIAN: REFERRING PHYSICIAN: RENEE RAMOS MD DATE OF SERVICE: 01/31/19 Discharge Plan Patient Name: NAYAN TATUM Facility: [facility]:[place] : 1940 Planned Disposition: Home with Home Health Anticipated Discharge Date: 01/31/19 Discharge Date: Expected LOS: 11 Initial Reviewer: [id number] Initial Review Date: 01/26/2019 Generated: 01/31/19 3:24 pm Comments DCP- Discharge Planning Updated by [id number]: Rafat Up on 01/29/19 2:[address] Patient Name: NAYAN TATUM Encounter No: [id number] : 1940 Primary Insurance: AETNA PPO Anticipated DC Date: 01-30-2019 Planned Disposition: Inpatient Rehab External Planned Provider: [facility] DCP follow-up note: CM RECEIVED CALL FROM MELY OF [facility], THEY HAVE SUBMITTED TO PT'S INSURANCE COMPANY FOR INSURANCE AUTHORIZATION FOR INPATIENT REHAB SERVICES. CM SPOKE TO PT WHO IS IN AGREEMENT WITH REHAB AT [place], REQUESTED PRIVATE ROOM. CM EXPLAINED THAT HE MAY HAVE TO SHARE A SEMI PRIVATE ROOM, PT REPORTS ACCEPTANCE AND UNDERSTANDING AND ONLY WANTS CM TO MAKE THE REQUEST TO REHAB. CM PROVIDED AND EXPLAINED IMPORTANT MESSAGE FROM MEDICARE. CM CALLED [facility] OF INPATIENT REHAB, RELAYED REQUEST FOR PRIVATE ROOM FOR REHAB. CM WAITING INSURANCE AUTHORIZATION OR DECLINATION FOR REHAB SERVICES AT [facility]. YARA Garrett DCP- Discharge Planning Updated by [id number]: Jeny Arriaga on 01/26/19 11:[address] Patient Name: NAYAN TATUM Admission Status: Elective Accout number: [id number] Admission Date: 01-20-2019 : 1940 Admission Diagnosis:FLUID OVERLOAD, UNSPECIFIED Attending: RENEE RAMOS Current LOS: 6 Anticipated DC Date: 01-29-2019 Planned Disposition: Inpatient Rehab Primary Insurance: AETNA PPO Discharge Planning Comments: CM MET WITH PATIENT REGARDING D/C NEEDS AND PLANS. PATIENT STATES HE LIVES ALONE AND WILL BE GOING TO REHAB AT DISCHARGE. PATIENT STATED HE IS INDEPENDENT AT HOME AND HAS A WALKER, BUILT IN SHOWER CHAIR, AND O2 AT . [facility] IS THE PROVIDER OF O2. PATIENTS PCP IS DR. MEANS AND PHARMACY IS [facility] IN [place]. CM SPOKE WITH FERNANDA IN PT AND HE STATED PATIENT NEEDS REHAB. CM PRESENTED THE CHOICE FORM FOR REHAB AND PATIENT WANTED ONLY IP REHAB AND WOULD NOT CHOOSE ANOTHER. CM EXPLAINED THAT IP MAY NOT ACCEPT HIS INSURANCE AND HE STATED HE WANTED TO WAIT AND SEE SUNDAY. CM WILL CONTINUE TO FOLLOW PATIENT WITH D/C NEEDS AND PLANS. PCP [facility] [place] Game Programer: Jeny Arriaga DCPIA - Discharge Planning Initial Assessment Updated by [id number]: Jeny Arriaga on 01/26/19 12:20 pm * Is the patient Alert and Oriented? Yes * How many steps to enter\exit or inside your home? * PCP DR. MEANS * Pharmacy [facility] IN [place] * Preadmission Environment Home Alone * ADLs Independent * Equipment Oxygen Rolling Walker * Other Equipment BUILT IN SHOWER CHAIR 02 AT - [facility] SUPPLIES * List name and contact numbers for known caregivers / representatives who currently or will assist patient after discharge: MELONIE SANDHU (JED) [phone] EMERGENCY CONTACT * Verbal permission to speak to the caregivers and representatives has been obtained from the patient. Yes * Community resources currently utilized None * Additional services required to return to the preadmission environment? Yes * Can the patient safely return to the preadmission environment? Yes * Has this patient been hospitalized within the prior 30 days at any hospital? No Coverage Notice Reviewer: [id number] - Jeny Arriaga Notice Issued Date-Time: 01/26/2019 12:00 Notice Type: Patient Choice Letter Notice Delivered To: Patient Relationship to Patient: Director Statistical Programming Name: Delivery Method: HAND - Hand Delivered Floresita Days: Prior Verbal Notification: Recipient Understood Notice: Yes Recipient Signature: Yes Med Rec Note Co-signed by Attending: Coverage Notice Comment: PATIENT CHOSE IP REHAB WOULD NOT CHOOSE ANOTHER ONE Reviewer: [id number] - Rafat Jeovanny Notice Issued Date-Time: 01/29/2019 15:10 Notice Type: IM Discharge Notice Notice Delivered To: Patient Relationship to Patient: Director Statistical Programming Name: Delivery Method: HAND - Hand Delivered Floresita Days: Prior Verbal Notification: Recipient Understood Notice: Yes Recipient Signature: Yes Med Rec Note Co-signed by Attending: Coverage Notice Comment: Last DP export: 01/31/19 1:06 p Patient Name: NAYAN TATUM Page 45601 at 1425 All edits/amendments must be made on the electronic document DICTATION DATE: 01/31/191423 BATCH WEIGHER: KIRAN 01/31/19 1424 RPT#: [id number] DC DATE: STATUS: ADM IN [facility] [address] [place] [address] END OF REPORT
--- NOTE | 2019-01-31 14:56 | MORECARE ---
CASE MANAGEMENT DISCHARGE SUMMARY PATIENT: NAYAN TATUM UNIT: [id number] ADM DATE: 01/20/19 AGE: 78 : 38 SEX: M ROOM/BED: D.2112 AUTHOR: JOSE,DOC PHYSICIAN: REFERRING PHYSICIAN: RENEE RAMOS MD DATE OF SERVICE: 01/31/19 Discharge Plan Patient Name: NAYAN TATUM Facility: [facility]:[place] : 1940 Planned Disposition: Home with Home Health Anticipated Discharge Date: 01/31/19 Discharge Date: Expected LOS: 11 Initial Reviewer: [email or web address] Initial Review Date: 01/26/2019 Generated: 01/31/19 3:56 pm Comments DCP- Discharge Planning Updated by [id number]: Rafat Up on 01/31/19 1:[address] Patient Name: NAYAN TATUM Encounter No: [id number] : 1940 Primary Insurance: [employer] PPO Anticipated DC Date: 01-31-2019 Planned Disposition: Home with Home Health External Planned Provider: [facility] DCP follow-up note: CM RECEIVED CALL FROM MARCIN OF INPATIENT REHAB, PT'S INSURANCE HAS DECLINED INPATIENT REHAB AND IF THE DOCTOR WANTS TO DO PEER TO PEER, IT MUST BE DONE BY NOON TODAY. INSURANCE RECOMMENED ASSISTED FACILITY. CM CONTACTED DR. RAMOS, INFORMED OF ABOVE, DR. RAMOS RECOMMENDED SKILLED CARE ALSO. CM MET WITH PT IN ROOM, DISCUSSED ASSISTED REHAB OPTIONS, LOCATIONS AND PROVIDERS. PT REFUSED ASSISTED FACILITY CARE, PT REPORTS PLAN TO GO HOME WITH HOME HEALTH. CM PROVIDED HOME HEALTH PROVIDER LISTING. PT SIGNED CHOICE FOR [facility]. PT DENIES FURHTER NEEDS, REPORTS THAT HIS NIECE WILL PICK HIM UP FOR DISCHARGE HOME TODAY. PT'S DISCHARGE ADDRESS IS [address] [place] [address]. CM CALLED [facility], , SPOKE TO ABAD, REFERRAL PROVIDED, PT PLACED ON SCHEDULE FOR SUNDAY, PT NOTIFIED AND IN AGREEMENT WITH PLAN REPORTING HAVING TWO NIECES TO ASSIST IF NEEDED. CM FAXED REFERRAL AND DISCHARGE INFORMATION TO [facility] AT [phone]. TAX TECHNICIAN NURSE NOTIFIED. Rafat Up, CASE MANAGEMENT DCP- Discharge Planning Updated by [id number]: Rafat Up on 01/29/19 2:[address] Patient Name: NAYAN TATUM Encounter No: [id number] : 1940 Primary Insurance: AET[employer] PPO Anticipated DC Date: 01-30-2019 Planned Disposition: Inpatient Rehab External Planned Provider: [facility] DCP follow-up note: CM RECEIVED CALL FROM MELY OF [facility], THEY HAVE SUBMITTED TO PT'S INSURANCE COMPANY FOR INSURANCE AUTHORIZATION FOR INPATIENT REHAB SERVICES. CM SPOKE TO PT WHO IS IN AGREEMENT WITH REHAB AT [facility], REQUESTED PRIVATE ROOM. CM EXPLAINED THAT HE MAY HAVE TO SHARE A SEMI PRIVATE ROOM, PT REPORTS ACCEPTANCE AND UNDERSTANDING AND ONLY WANTS CM TO MAKE THE REQUEST TO REHAB. CM PROVIDED AND EXPLAINED IMPORTANT MESSAGE FROM MEDICARE. CM CALLED MELY OF INPATIENT REHAB, RELAYED REQUEST FOR PRIVATE ROOM FOR REHAB. CM WAITING INSURANCE AUTHORIZATION OR DECLINATION FOR REHAB SERVICES AT [facility]. Rafat Up CASE MANAGEMENT DCP- Discharge Planning Updated by [id number]: Jeny Arriaga on 01/26/19 11:[address] Patient Name: NAYAN TATUM Admission Status: Elective Accout number: [id number] Admission Date: 01-20-2019 : 1940 Admission Diagnosis:FLUID OVERLOAD, UNSPECIFIED Attending: RENEE RAMOS Current LOS: 6 Anticipated DC Date: 01-29-2019 Planned Disposition: Inpatient Rehab Primary Insurance: AET[employer] PPO Discharge Planning Comments: CM MET WITH PATIENT REGARDING D/C NEEDS AND PLANS. PATIENT STATES HE LIVES ALONE AND WILL BE GOING TO REHAB AT DISCHARGE. PATIENT STATED HE IS INDEPENDENT AT HOME AND HAS A WALKER, BUILT IN SHOWER CHAIR, AND O2 AT . [facility] IS THE PROVIDER OF O2. PATIENTS PCP IS DR. MEANS AND PHARMACY IS [facility] IN [place]. CM SPOKE WITH FERNANDA IN PT AND HE STATED PATIENT NEEDS REHAB. CM PRESENTED THE CHOICE FORM FOR REHAB AND PATIENT WANTED ONLY IP REHAB AND WOULD NOT CHOOSE ANOTHER. CM EXPLAINED THAT IP MAY NOT ACCEPT HIS INSURANCE AND HE STATED HE WANTED TO WAIT AND SEE SUNDAY. CM WILL CONTINUE TO FOLLOW PATIENT WITH D/C NEEDS AND PLANS. PCP [facility] [place] Carpenter Supervisor Wooden Ship: Jeny Arriaga DCPIA - Discharge Planning Initial Assessment Updated by [id number]: Jeny Arriaga on 01/26/19 12:20 pm * Is the patient Alert and Oriented? Yes * How many steps to enter\exit or inside your home? * PCP DR. MEANS * Pharmacy [facility] IN [place] * Preadmission Environment Home Alone * ADLs Independent * Equipment Oxygen Rolling Walker * Other Equipment BUILT IN SHOWER CHAIR 02 AT [facility] * List name and contact numbers for known caregivers / representatives who currently or will assist patient after discharge: MELONIE SANDHU ([facility]) [phone] EMERGENCY CONTACT * Verbal permission to speak to the caregivers and representatives has been obtained from the patient. Yes * Community resources currently utilized None * Additional services required to return to the preadmission environment? Yes * Can the patient safely return to the preadmission environment? Yes * Has this patient been hospitalized within the prior 30 days at any hospital? No Coverage Notice Reviewer: [id number] - Jeny Arriaga Notice Issued Date-Time: 01/26/2019 12:00 Notice Type: Patient Choice Letter Notice Delivered To: Patient Relationship to Patient: Master Electrician Name: Delivery Method: HAND - Hand Delivered Flores[place] Days: Prior Verbal Notification: Recipient Understood Notice: Yes Recipient Signature: Yes Med Rec Note Co-signed by Attending: Coverage Notice Comment: PATIENT CHOSE [facility] REHAB WOULD NOT CHOOSE ANOTHER ONE Reviewer: [id number] Darren Up Notice Issued Date-Time: 01/29/2019 15:10 Notice Type: IM Discharge Notice Notice Delivered To: Patient Relationship to Patient: Master Electrician Name: Delivery Method: HAND - Hand Delivered Floresita Days: Prior Verbal Notification: Recipient Understood Notice: Yes Recipient Signature: Yes Med Rec Note Co-signed by Attending: Coverage Notice Comment: Reviewer: [id number] Darren Up Notice Issued Date-Time: 01/31/2019 11:45 Notice Type: Patient Choice Letter Notice Delivered To: Patient Relationship to Patient: Master Electrician Name: Delivery Method: HAND - Hand Delivered Floresita Days: Prior Verbal Notification: Recipient Understood Notice: Yes Recipient Signature: Yes Med Rec Note Co-signed by Attending: Coverage Notice Comment: [facility] Last DP export: 01/31/19 1:24 p Patient Name: NAYAN TATUM Page [id number] at 1456 All edits/amendments must be made on the electronic document DICTATION DATE: 01/31/191455 POLYMERIZATION KETTLE OPERATOR: KIRAN 01/31/191455 RPT#: [id number] DC DATE: STATUS: ADM IN [facility] [address] [place] [address] END OF REPORT
== END 2019-01-31 13:10 | disposition home health service (06) | DRG 682 ==
LOC: D.M2 15:20
PROVIDERS: Family Medicine; ADMIT Internal Medicine Nephrology; ATTEND Internal Medicine Nephrology
DX: N17.0 Acute kidney failure with tubular necrosis (principal); I50.33 Acute on chronic diastolic (congestive) heart failure; J18.1 Lobar pneumonia, unspecified organism; J96.21 Acute and chronic respiratory failure with hypoxia; I13.0 Hypertensive heart and chronic kidney disease with heart failure and stage 1 through stage 4 chronic kidney disease, or unspecified chronic kidney disease; J44.0 Chronic obstructive pulmonary disease with (acute) lower respiratory infection; N39.0 Urinary tract infection, site not specified; N18.9 Chronic kidney disease, unspecified; I48.0 Paroxysmal atrial fibrillation; E83.42 Hypomagnesemia; D53.9 Nutritional anemia, unspecified; Z87.891 Personal history of nicotine dependence; K21.9 Gastro-esophageal reflux disease without esophagitis; E78.5 Hyperlipidemia, unspecified; G62.9 Polyneuropathy, unspecified; G47.33 Obstructive sleep apnea (adult) (pediatric); M10.9 Gout, unspecified

== ENCOUNTER 2019-02-03 11:47 | Inpatient (IN) | payer MEDICARE ==
[~2019-02-03] VITALS: Ht 175.3 cm; Wt 100.9 kg
[2019-02-03] VITALS (8 sets, daily range): BP systolic 81–144; BP diastolic 46–79
[~2019-02-03 11:47] MED LIST changes: +CARDIZEM CD180 MG PO; +K-TAB10 MEQ PO; +LASIX20 MG PO; +LASIX40 MG PO; +METHYL B; +OMEPRAZOLE20 M1 PO
[2019-02-03 13:03] LABS: APPEARANCE CLEAR (CLEAR); BACTERIA FEW /hpf (NONE SEEN); BILIRUBIN NEGATIVE (NEGATIVE); COLOR YELLOW (YELLOW); EPITHELIAL CELLS 0-5 /hpf (0-5); GLUCOSE NEGATIVE (NEGATIVE); KETONE NEGATIVE (NEGATIVE); MUCUS <1+ /lpf (NONE SEEN); NITRITE NEGATIVE (NEGATIVE); PROTEIN 2+ mg/dL (NEGATIVE); RED CELLS - URINE 0-5 /hpf (0-5); SPECIFIC GRAVITY 1.015 (1.005-1.020); UROBILINOGEN NORMAL (NORMAL); WHITE CELLS - URINE RARE /hpf (0-5)
[2019-02-03 13:16] LABS: BASOPHILS 0.1 % (0-2); EOSINOPHILS 0 % (0-7); HEMATOCRIT 30.3 % (42.0-54.0); IMMATURE GRANULOCYTES 0.3 % (0-5); LYMPHOCYTES 7.7 % (15-50); MCH 30.8 pg (26.0-34.0); MCV 93.2 fL (80.0-100.0); MEAN PLATELET VOLUME 10.5 fL (7.4-10.4); MONOCYTES 4.4 % (2-11); NEUTROPHILS 87.5 % (40-80); PLATELET COUNT 243 10x3/uL (130-400); RBC 3.25 10x6/uL (4.20-6.10); RDW 18.3 % (11.5-14.5); WBC 13.2 10x3/uL (4.8-10.8)
[2019-02-03 13:37] LABS: ALBUMIN 3.3 g/dL (3.4-5.0); ALKALINE PHOSPHATASE 73 U/L (46-116); ALT (SGPT) 26 U/L (10-68); BILIRUBIN - TOTAL 0.59 mg/dL (0.2-1.3); CALC OSMOLALITY 294 mosm/kg (275-300); CALCIUM 9.3 mg/dL (8.5-10.1); CHLORIDE - SERUM 93 mmol/L (98-107); CREATININE - SERUM 4.5 mg/dL (0.6-1.3); GLUCOSE 121 mg/dL (74-106); POTASSIUM - SERUM 3.5 mmol/L (3.5-5.1); PROTEIN - SERUM 7.2 g/dL (6.4-8.2); SODIUM 136 mmol/L (136-145); UREA NITROGEN 75 mg/dL (7-18); eGFR NON AFRICAN AMERICAN 13 mL/min (90-120)
[2019-02-03 13:53] LABS: CKMB 0.8 U/L (0.0-3.6); CREATINE KINASE 21 UL (21-232); PRO BNP 3191 pg/mL (0-450); TROPONIN-I < 0.017 ng/mL (0.000-0.060)
[2019-02-03 16:29] LABS: APTT 28.6 SECONDS (22.8-39.4); PROTIME 12.7 SECONDS (11.6-15.0)
--- NOTE | 2019-02-03 17:00 | NUR ---
NG TUBE RETRACTED AND REPLACED. PLACEMENT CONFIRMED BY AUSCULTATION.
--- NOTE | 2019-02-03 18:15 | NUR ---
ROCEPHIN STOPPED AT 1814
--- NOTE | 2019-02-03 22:26 | NUR ---
PT ARRIVED TO ICU VIA OR STAFF. BEDSIDE REPORT GIVEN. PT INTUBATED AND UNABLE TO FOLLOW COMMANDS AT THIS TIME. PERRLA, 3 MM, BRISK REACTION TO LIGHT. ETT SIZE 7.5, 26 CM LIP. VENT SETTINGS: A/C RATE OF 14, FIO2 50%, TIDAL VOLUME 550, PEEP 5.0. O2 SAT 96%. DR. GRAYSON AT BEDSIDE. VERBAL ORDER FOR LEVOPHED, ABGS, BICARB GTT IF NEEDED, 3L BOLUS OF LR OVER 3 HRS (500 ML/HR). ABGS REVIEWED, NO BICARB NEEDED AT THIS TIME. R WRIST A-LINE ZEORED, GOOD WAVE FORM SHOWING ON MONITOR. R AND L 20G PIV, SEE IF FLOWSHEET FOR GTTS. S1S2 AUDIBLE, CLEAR LUNG SOUNDS HEARD BILAT THROUGH UPPER AND MIDDLE LOBES, DIMINISHED BASES. UNCONTROLLED A FLUTTER SHOWING ON MONITOR. ABD ROUND AND SOFT, DRESSING FROM OR INTACT, LLL. LLL LEONILA DRAIN, SEROUS FLUID NOTED. RAZA CATH INTACT DRAINING A SCANT AMOUNT OF YELLOW URINE. SCDS ON. RADIAL AND PEDAL PULSES PALP. RT AT BEDSIDE. WILL CONT TO MONITOR CLOSELY.
--- NOTE | 2019-02-03 23:00 | NUR ---
LEVOPHED INITIATED. DR. GRAYSON AND HOTEL MAINTENANCE TECHNICIAN AT BEDSIDE. FAMILY IN FOR A QUICK UPDATE. NO FURTHER QUESTIONS AT THIS TIME. WILL CONT WITH POC.
[2019-02-04] VITALS (95 sets, daily range): BP systolic 50–131; BP diastolic 36–95; BMI 31.1
--- NOTE | 2019-02-04 01:00 | NUR ---
DR. ROSE NOTIFIED OF CONSULT. NEW ORDERS RECIEVED. SEE EMAR FOR DETIALS. DECREASED TV TO 500, RATE INCREASED TO 18, RT AT BEDSIDE. ORAL CARE PROVIDED. A-FLUTTER SHOWING ON MONITOR. PT IS ABLE TO SQUEEZE HANDS AND FOLLOW COMMANDS AT THIS TIME. ALL NEEDS MET. WILL CONT TO MONITOR.
--- NOTE | 2019-02-04 02:11 | OP ---
PATIENT NAME: NAYAN TATUM MEDICAL RECORD: [id number] :[birth year] LOCATION:.[facility] D.2312 ADMISSION DATE:02/03/19 SURGEON: ZAIRA GRAYSON MD DATE OF OPERATION: 02/03/2019 SURGEON: Zaira Grayson MD PREOPERATIVE DIAGNOSIS: 1. Incarcerated strangulated left inguinal hernia. 2. Recurrent incisional hernia. 3. New onset atrial flutter. 4. Acute renal failure. 5. Chronic anemia. POSTOPERATIVE DIAGNOSES: 1. Incarcerated strangulated left inguinal hernia. 2. Recurrent incisional hernia. 3. New onset atrial flutter. 4. Acute renal failure. 5. Chronic anemia. PROCEDURE PERFORMED: 1. Incarcerated strangulated left inguinal hernia repair with mesh. 2. Exploratory laparotomy with small bowel resection. 3. Appendectomy. 4. Explantation of mesh. 5. Incisional hernia repair. ANESTHESIA: General. COMPLICATIONS: None. SPECIMENS: 1. Small bowel resection. 2. Mesh explantation. 3. Appendectomy. Case was contaminated. ESTIMATED BLOOD LOSS: 200 cc. OPERATIVE COURSE: Prior to obtaining consent, family discussion was had with the patient and family. The family wanted to make sure we understood the patient was a DNR. I explained to them the severity of his illness, likely having necrotic or bowel and he would likely need a small bowel resection without surgery, he would almost without question of sepsis from bowel perforation. Family understood that the patient was terribly high risk, but there was no nonsurgical alternative. Consent was obtained. The patient was taken to the operating room, where general anesthesia was given. After intubation, a right radial A-line was placed. NG tube was placed with over 2 liters of fluid. A Morley was placed. The groin and abdomen were then prepped and draped in typical sterile fashion. A timeout was taken to confirm the correct patient and procedure. External landmarks were identified. Local anesthetic was injected. A transverse incision was made with electrocautery. A large hernia was identified. The mass was rock hard, slow circumferential OPERATIVE REPORT [id number] NAYAN TATUM dissection was performed. There was a direct floor hernia, which may also have had some femoral component. It was difficult due to the severity of the blowout of the inguinal floor. The hernia sac was opened. There was black necrotic bowel within the hernia sac. I was unable to further mobilize the small bowel any further to allow for resection. At this time, I reduced the small bowel and excised the hernia sac. The cord structures were identified. I closed the indirect space. The external oblique fascia was next opened laterally. Using blunt dissection, tissue flaps were created exposing the conjoined tendon superiorly and the inguinal ligament inferiorly. The conjoined tendon was then sewn to the inguinal ligament, closing the direct space using interrupted 0 Vicryl suture. Once the inguinal floor was recreated, we proceeded with a standard Maricel repair. A Bard soft mesh was cut to size and placed into the inguinal canal. It was secured with interrupted 2-0 Prolene suture circumferentially loosely recreating the indirect space. The external oblique fascia was then closed and was copiously irrigated and suctioned. The external oblique fascia was closed with 2-0 Vicryl suture. Subcutaneous tissue was closely irrigated and suctioned. The femoral space was closed with the residual portion of the mesh made into a plug and sutured in place with 2-0 Prolene suture. The Wenceslao's fascia was closed with 3-0 Vicryl suture. The skin was closed with char. The patient had a large recurrent reducible incisional hernia at the umbilical incision, the previous umbilical hernia repair. The skin and linear incision was made around the belly button using a 15 blade scalpel. Dissection continued with electrocautery. The hernia sac was entered almost immediately. The patient had a very thin layer of skin and this was consistent with preoperative CT imaging. There was no bowel injury. The remaining portion of hernia sac was opened. The hernia defect was approximately 10 cm x 8 cm. The explantation of previous mesh hernia repair was performed using electrocautery. The mesh was passed off the field for permanent pathology. The wound edges were cleaned. At this time, the small bowel was extracorporealized. The area of small incarcerated strangulated small bowel was identified. A small bowel resection was performed. Common enterotomies were made using the Harmonic scalpel. Using a linear DEMI 75-mm stapler, a [id number] small bowel anastomosis was performed. The small bowel section was passed off the field for permanent pathology. The staple line was imbricated using 3-0 Vicryl suture. The small bowel was run from the anastomosis both proximally and distally. It was run distally to the ligament of Treitz. At this time, I decided to perform an appendectomy using the linear 75-mm cutting stapler. The mesentery was tied off using an 0 Vicryl suture. Again, the small bowel was again run from the terminal ileum to the ligament of Treitz on 2 occasions. There were no bowel injuries. There was no evidence of leak. The NG tube was confirmed to be in place with manual palpation. The previous hernia was closed in a primary repair fascia using #1 looped PDS. The skin was closed with char. Prior to fascial closure, a 19 Deacon LEONILA drain was placed into the pelvis and exited through the left lower quadrant abdominal wall and secured in place with 2-0 Prolene suture. The fascia was closed with #1 looped PDS. Skin was closed with staple. At the end of the case, all needle and instrument counts were correct. No complications occurred. The patient was transferred to the ICU in critical condition, intubated. TRANSINT:[id number] Voice Confirmation ID: [id number] DOCUMENT ID: [id number] OPERATIVE REPORT [id number] NAYAN TATUM,ZAIRA Olivares MD at 0211 CC: [id number] DICTATION DATE: 02/03/192227 CONCESSION STAND ATTENDANT: 02/04/[address] [facility] [address] [id number]
--- NOTE | 2019-02-04 03:00 | NUR ---
DR. GRAYSON AT BEDSIDE. NO NEW ORDERS AT THIS TIME, CONTINUE WITH CURRENT CARE. REASSESSMENT COMPLETE. DIMINISHED LUNG SOUNDS HEARD BILAT THROUGHOUT ALL LOBES. SCANT AMOUNT OF YELLOW URINE (APPROX [address] ML). DR. GRAYSON IS AWARE. TITRATING GTTS PER ORDER. WILL CONT WITH POC.
[2019-02-04 04:18] LABS: BASOPHILS 0 % (0-2); EOSINOPHILS 0 % (0-7); HEMATOCRIT 24.8 % (42.0-54.0); IMMATURE GRANULOCYTES 0.3 % (0-5); LYMPHOCYTES 4.4 % (15-50); MCH 30.4 pg (26.0-34.0); MCHC 31.9 g/dL (31.0-37.0); MEAN PLATELET VOLUME 10.2 fL (7.4-10.4); MONOCYTES 6.4 % (2-11); NEUTROPHILS 88.9 % (40-80); PLATELET COUNT 243 10x3/uL (130-400); RDW 18.5 % (11.5-14.5); WBC 11.6 10x3/uL (4.8-10.8)
[2019-02-04 04:23] LABS: HEMOGLOBIN 7.9 g/dL (13.5-17.5); MCV 95.4 fL (80.0-100.0)
[2019-02-04 04:34] LABS: ALBUMIN 2.1 g/dL (3.4-5.0); ANION GAP 13.6 mmol/L (8-16); BILIRUBIN - TOTAL 0.46 mg/dL (0.2-1.3); CALCIUM 7.7 mg/dL (8.5-10.1); CARBON DIOXIDE 26.3 mmol/L (21.0-32.0); CREATININE - SERUM 4.2 mg/dL (0.6-1.3); MAGNESIUM - SERUM 1.5 mg/dL (1.8-2.4); POTASSIUM - SERUM 3.9 mmol/L (3.5-5.1); PROTEIN - SERUM 5.2 g/dL (6.4-8.2)
--- NOTE | 2019-02-04 05:00 | NUR ---
CHT BATH PROVIDED. BP REMAINS LOW. TITRATING GTTS PER ORDERS. WILL CONT TO MONITOR.
--- NOTE | 2019-02-04 07:00 | NUR ---
DR. BRINK CONSULTED. NO NEW ORDERS AT THIS TIME.
--- NOTE | 2019-02-04 08:24 | NUR ---
PT LYING IN BED ON VENT CALM WITH EYES OPEN AT THIS TIME. ON MULTIPLE PRESSORS, SBP TRENDING 70S-102. PRESSORS TITRATED TO ORDER. DR GRAYSNO UPDATED ON BLOOD PRESSURE AND LOW H&H, STATED PT NEEDS TRAILYSIS LINE. ATTEMPTED TO CALL PTS CYNDY WILHELM WITH NO ANSWER. VOICEMAIL LEFT. WAITING FOR CALLBACK. WILL CONTINUE PLAN OF CARE.
--- NOTE | 2019-02-04 09:50 | NUR ---
RECIEVING FIRST UNIT OF PRBC AT THIS TIME.
--- NOTE | 2019-02-04 09:57 | NUR ---
SPOKE WITH PTS FAMILY INCLUDING POA. RECIEVED CONSENTS FOR TRIALYSIS LINE. PT NOTED WRITING NOTES TO STAFF AND FAMILY STATING "KEEP ME ALIVE" AND TELLING FAMILY TO "GIVE CONSENTS FOR ALL." ALSO NOTED LT AC PERIPHERAL SITE NO LONGER PATENT AND DOES NOT FLUSH, IV DC CATHETER TIP INTACT. SURGERY PAGED FOR NEED FOR LINE PLACEMENT, WAITING FOR CALLBACK. WILL CONTINUE TO CLOSELY OBSERVE.
--- NOTE | 2019-02-04 11:05 | NUR ---
RT IJ TRIALYSIS LINE PLACED AT THIS TIME BY SURGEON. STAT CHEST XR ORDERED TO VERIFY PLACEMENT. 1040: 2ND UNIT OF PRBC STARTED.
--- NOTE | 2019-02-04 13:47 | NUR ---
FAMILY AT BEDSIDE. UPDATES GIVEN. PT OPENS EYES AND WRITES ON BOARD TO COMMUNICATE WITH FAMILY. NO ACUTE DISTRESS NOTED. ALSO PER VP TALENT MANAGEMENT, TRY TO WEAN OFF LEVOPHED BEFORE WEANING OFF ELVIA AND VASO. WILL CONTINUE PLAN OF CARE.
--- NOTE | 2019-02-04 15:48 | NUR ---
UP IN BED RESTING ON VENT WITH EYES CLOSED. NO ACUTE DISTRESS NOTED. PT OPENS EYES WHEN SPOKEN TO. TURNED Q2H. ORAL CARE PROVIDED Q2H. PT ABLE TO COMMUNICATE NEEDS. HAS RECIEVED SARA CARE WITH HIPICLENS WELL A HIPICLENS BATH. WILL CONTINUE PLAN OF CRE.
--- NOTE | 2019-02-04 17:01 | NUR ---
PER SURGEON, ORDER CBC. ALSO NOTED PTS FAMILY AT BEDSIDE. ALL QUESTIONS AND CONCERNS ADRESSED. NO ACUTE DISTRESS NOTED. WILL CONTINUE PLAN OF CARE.
[2019-02-04 18:00] LABS: BASOPHILS 0.1 % (0-2); EOSINOPHILS 0 % (0-7); HEMATOCRIT 25.6 % (42.0-54.0); HEMOGLOBIN 8.4 g/dL (13.5-17.5); IMMATURE GRANULOCYTES 0.4 % (0-5); LYMPHOCYTES 5.8 % (15-50); MCH 29.9 pg (26.0-34.0); MCHC 32.8 g/dL (31.0-37.0); MEAN PLATELET VOLUME 10.6 fL (7.4-10.4); MONOCYTES 4.9 % (2-11); NEUTROPHILS 88.8 % (40-80); RBC 2.81 10x6/uL (4.20-6.10); RDW 19.7 % (11.5-14.5); WBC 13.7 10x3/uL (4.8-10.8)
[2019-02-04 18:01] LABS: MCV 91.1 fL (80.0-100.0); PLATELET COUNT 181 10x3/uL (130-400)
--- NOTE | 2019-02-04 18:10 | NUR ---
PER DR GRAYSON, FLUSH BLUE PORT TO NGT. AND FOR NOW NO MEDS THROUGH NGT; FOR DECOMPRESSION ONLY. WILL CONTINUE PLAN OF CARE.
--- NOTE | 2019-02-04 19:00 | NUR ---
Shift assessment complete. Pt is on vent and able to follow all commands at this time. PERRLA, 3 mm brisk reaction to light. NGT to LIS, green/brown bile noted in collection canister. ETT secured, size 7.5, 26 cm lip. Vent settings: A/C rate of 18, tidal volume 500, FiO2 30%, peep 5.0. R IJ trialysis cath, dressing CDI, infusing: Vasopressin @ 0.04 un/min, NS @ 100 ml/hr, Levophed @ 8 mcg/min, Patrick @ 90 mcg/min, and Cardizem @ 5 mg/hr. S1S2 audible, HR 89, a-flutter showing on monitor. Crackles heard bilat upper lobes, diminished lung sounds on bases. ABD is round, dressing x2, scant amount of serosang drainage noted. LLQ LEONILA drain compressed, bloody drainage noted. Hypoactive BS x4. Bruises noted on upper ext. L wrist PIV S/L. Radial and pedal pulses palp. Strong and equal hand software technical lead and foot pumps. He denies any pain at this time. Will cont close monitoring in ICU.
--- NOTE | 2019-02-04 19:30 | NUR ---
Pt feels warm to touch. Temp 99.3, fan placed in room. Pt nods head when asked if he is comfortable. Will cont close monitoring.
--- NOTE | 2019-02-04 21:00 | NUR ---
Titrating and decreased Levo and Patrick. SBP remains 90-104. Will cont to titrate down as ordered. Levo is now at 5 mcg/min (9.4 mL/hr) and Patrick @ 60 mcg/min (45 mL/hr). BP holding at this time. Family at bedside. Updated. Pt denies any pain at this time. Will cont with POC.
--- NOTE | 2019-02-04 22:00 | NUR ---
Flushed NGT with 30 cc H2O with no issues. NGT placed back on LIS.
--- NOTE | 2019-02-04 23:00 | NUR ---
Reassessment complete. Oral care provided. Unable to turn him due to his request. Educated him on the R/F pressure ulcers. He nods that he understands. When asked if he would like to stay on his back he stated that he does. Will cont to encourage turning. V/S: HR 85 a-flutter, BP 103/45 (A-Line, good wave form showing on monitor), Titrating Levo and Patrick, current rates are 4 mcg/min of Levo and 30 mcg/min of Patrick. LEONILA drain compressed. Radial and pedal pulses palp. He shakes his head "no" when asked if he is in any pain or discomfort. Will cont to monitor closely.
[2019-02-05] VITALS (75 sets, daily range): BP systolic 82–142; BP diastolic 39–76
--- NOTE | 2019-02-05 01:00 | NUR ---
REPOSITIONED FOR COMFORT. TITRATING GTTS TOLERATED. ORAL CARE PROVIDED. WILL CONT WITH POC.
--- NOTE | 2019-02-05 03:00 | NUR ---
REASSESSMENT COMPLETE. CONT TO TITRATE DOWN OF GTT. EMPTIED LEONILA DRAIN, BLOODY DRAINAGE NOTED. DEPENDENT EDEMA NOTED ON L ARM FROM BP CUFF. ELEVATED ON PILLOWS. NO FURTHER NEEDS AT THIS TIME. HE DENIES ANY PAIN. WILL CONT CLOSE MONITORING IN ICU.
--- NOTE | 2019-02-05 04:00 | NUR ---
RAZA CARE PROVIDED.
[2019-02-05 04:26] LABS: BASOPHILS 0 % (0-2); EOSINOPHILS 0 % (0-7); IMMATURE GRANULOCYTES 0.1 % (0-5); LYMPHOCYTES 8.4 % (15-50); MCH 30.2 pg (26.0-34.0); MCHC 33.2 g/dL (31.0-37.0); MCV 90.9 fL (80.0-100.0); MEAN PLATELET VOLUME 10.6 fL (7.4-10.4); MONOCYTES 6.4 % (2-11); NEUTROPHILS 85.1 % (40-80); PLATELET COUNT 149 10x3/uL (130-400); RBC 2.42 10x6/uL (4.20-6.10); RDW 19.6 % (11.5-14.5)
--- NOTE | 2019-02-05 04:30 | NUR ---
MAXIMO AND ARLIN LABS DRAWN.
[2019-02-05 04:37] LABS: WBC 8.1 10x3/uL (4.8-10.8)
[2019-02-05 04:38] LABS: HEMOGLOBIN 7.3 g/dL (13.5-17.5)
[2019-02-05 04:44] LABS: ALBUMIN 1.6 g/dL (3.4-5.0); ANION GAP 17.3 mmol/L (8-16); BILIRUBIN - TOTAL 0.44 mg/dL (0.2-1.3); CALCIUM 7.1 mg/dL (8.5-10.1); CARBON DIOXIDE 21.1 mmol/L (21.0-32.0); CREATININE - SERUM 4.2 mg/dL (0.6-1.3); POTASSIUM - SERUM 4.4 mmol/L (3.5-5.1); PROTEIN - SERUM 4.8 g/dL (6.4-8.2); VANCOMYCIN - RANDOM 11.2 ug/mL (10.0-20.0)
[2019-02-05 04:45] LABS: MAGNESIUM - SERUM 1.9 mg/dL (1.8-2.4)
--- NOTE | 2019-02-05 05:00 | NUR ---
CALLED DR. FRANCISCO TO INFORM HIM OF CRITICAL LAB RESULTS. 2 UN PRBCS ORDERED. NOTIFIED LAB. WILL AWAIT PRBCS.
--- NOTE | 2019-02-05 05:30 | NUR ---
PT WROTE ON NOTEPAD, "I AM FULLY AWARE OF RISK BUT I AM CLEAR HEADED AND WON'T PULL ANYTHING." REMOVED WRIST RESTRAINTS. WILL CONT CLOSE MONITORING IN ICU.
--- NOTE | 2019-02-05 05:54 | NUR ---
FIRST UN OF PRBCS INFUSING.
--- NOTE | 2019-02-05 06:15 | NUR ---
CHANGED R IJ TRIALYSIS CATH VIA [employer], DATED AND LABELED. LEVOPHED TITRATED OFF AT THIS TIME.
--- NOTE | 2019-02-05 09:03 | NUR ---
0700 PT RECIEVED ALERT AND ORIENTED, COMMUNICATES WITH PAPER AND PEN, ETT 7.5 ON ASSIST CONTROL, NGT LIS, GREEN DRAINAGE, R IJ TRIALYSIS DRESSING CDI WITH ELVIA 20MCG, VASO 0.04, NS 100ML/HR, CARDIZEM 5, PRBCS TO L WRIST PIV, ABD DRESSING CDI WITH LLQ LEONILA DRAIN COMPRESSED WITH BLOODY DRAINAGE, RAZA DRAINING CONCENTRATED URINE, PT CALL LIGHT WITHIN REACH AND ABLE TO USE, 0800 DR GRAYSON IN UNIT AND ORDERS FOR 3 TOTAL PRBCS WITH FFP AND CALCIUM, SPOKE WITH KOLBY IN PHARMACY AND AWAITING CALCIUM 0830 1ST UNIT PRBCS COMPLETE 0845 2ND UNIT PRBCS INITIATED\ 0900 TOLERATING PRBCS WELL, NO ADVERSE REACTIONS NOTED
--- NOTE | 2019-02-05 10:39 | CN ---
PATIENT NAME:NAYAN TATUM MEDICAL RECORD: [id number] : [birth year] LOCATION:[facility] ADMIT DATE: 02/03/19 ACCOUNT: [id number] CONSULTING PHYSICIAN: BRANDAN KISER MD REFERRING PHYSICIAN: MARVIN OLIVIA MD DATE OF CONSULTATION: 02/03/2019 DIAGNOSES: 1. New onset atrial flutter. 2. Nausea and vomiting. 3. Hypertension. 4. Shortness of breath, dyspnea on exertion. HISTORY OF PRESENT ILLNESS: Mr. Tatum was recently in the hospital with what sounds like a GI illness for 2 weeks. He had some palpitations, at that time, he was not told he had any dysrhythmia. Everything resolved. Yesterday, he had palpitations come back along with nausea, vomiting and he now presents to the Emergency Room. He is found to be in atrial flutter. As best we can tell, he has not had atrial flutter in the past. His rate is controlled in the 80s, but he is on diltiazem 180 mg for blood pressure. PHYSICAL EXAMINATION: GENERAL APPEARANCE: Well-nourished, well-developed, appears stated age. Level of distress, comfortable. PSYCHIATRIC: Mental status, alert, normal affect. Orientation, oriented to time, place and person. EYES: Lids and conjunctiva, noninjected. No discharge, no pallor. ENT: Lips, teeth, gums, normal dentition. Oropharynx, no cyanosis, no pallor. NECK: Carotid arteries, bilateral normal upstroke, no bruits, no thrills. JUGULAR VEINS: No jugular venous pressure or distention. CERVICAL LYMPH NODES: Nontender, nonenlarged. THYROID: Not enlarged. Nontender. No nodules. LUNGS: Respiratory effort, unlabored. CHEST: Normal curvature. No thoracic deformity. No chest wall tenderness. Percussion, resonant. Auscultation, clear. No wheezes, no rales, no rhonchi. CARDIOVASCULAR: Precordial exam, nondisplaced. No heaves or pericardial thrills. Rate and rhythm, regular. Heart sounds, normal S1, normal S2. No S3, no gallop, no rub. Systolic murmur, not heard. Diastolic murmur, not heard. EXTREMITIES: No cyanosis, no edema. Peripheral pulses, full and equal in all extremities, except as noted. No bruits appreciated. ABDOMEN: Soft, nondistended. Normal aorta. No bruit. Nontender. No masses. Liver, nontender, no hepatomegaly. Spleen, nontender, no splenomegaly. MUSCULOSKELETAL: No joint tenderness. No joint swelling. No erythema. NEUROLOGICAL: Normal gait, normal strength, normal tone. SKIN: Warm and dry. OVERALL IMPRESSION: Atrial flutter, most likely secondary to electrolyte abnormalities. He had an echocardiogram last month. This was overall normal. He is not complaining of any chest pain or chest discomfort, has no ischemic changes on EKG. At this time, we will start him on sotalol 80 mg b.i.d. Hopefully, this will convert him to sinus rhythm. Continue the Cardizem as well. TRANSINT:[id number] Voice Confirmation ID: [id number] DOCUMENT ID: [id number] CONSULT REPORT [id number] NAYAN TATUM, BRANDAN LUCAS at 1039 CC: [id number] DICTATION DATE: 02/03/19 1252 OPEN DIE INSPECTOR: 02/03/19 1431 ADM IN [facility] [address] [place] [address]
--- NOTE | 2019-02-05 10:45 | NUR ---
PT REPOSITIONED, REFUSED BATH AND LINEN CHANGE STATING HE HAD ONE LAST NIGHT
--- NOTE | 2019-02-05 14:36 | NUR ---
1300 REPOSOTIONED, ORAL CARE DONE, CONTINUES TO REFUSE BATH 1430 DR GRAYSON IN UNIT, AWARE OF PTS LEONILA DRAIN OUTPUT, PT DENIES PAIN CALL LIGHT WITHIN REACH
--- NOTE | 2019-02-05 17:46 | MORECARE ---
CASE MANAGEMENT DISCHARGE SUMMARY PATIENT: NAYAN TATUM UNIT: [id number] ADM DATE: 02/03/19 AGE: 78 : 39 SEX: M ROOM/BED: D.2312 AUTHOR: JOSE,DOC PHYSICIAN: REFERRING PHYSICIAN: MARVIN OLIVIA MD DATE OF SERVICE: 02/05/19 Discharge Plan Patient Name: NAYAN TATUM Facility: [facility]:[place] : 1940 Planned Disposition: Anticipated Discharge Date: Discharge Date: Expected LOS: Initial Reviewer: [email or web address] Initial Review Date: 02/05/2019 Generated: 02/05/19 6:45 pm DCP- Discharge Planning Updated by [email or web address]: Bessie Loja on 02/03/19 4:[address] Patient Name: NAYAN TATUM Admission Status: ER Accout number: [id number] Admission Date: 02-03-2019 : 1940 Admission Diagnosis: Attending: MARVIN MANUEL Current LOS: 1 Anticipated DC Date: Planned Disposition: Primary Insurance: AETNA PPO Discharge Planning Comments: CM met with patient, his great niece/POA Jyotsna Verdin, and ambreen Mota, to complete initial dc planning assessment. CM educated patient on the CM role and verbal consent given by patient to complete assessment. Patient lives at home alone. Patient currently has [facility] and wishes to resume at discharge if he is able to return home. HERSON form signed by patient's POA for resumption of [facility] or [facility]. Signed form placed in chart and signed form given to patient. At discharge patient plans to return home if he is able if not he will want to go to rehab at either [facility] or [facility] and feels this is a safe discharge. Patient's POA denied further known discharge needs at this time. Patient's niece will transport him home if dc to home. CM will continue to follow and will assist as needed with dc plans/needs. Public Service Representative: Bessie Loja DCPIA - Discharge Planning Initial Assessment Updated by [email or web address]: Bessie Loja on 02/03/19 5:07 pm * Is the patient Alert and Oriented? Yes * How many steps to enter\exit or inside your home? None * PCP Dr. Sands * Pharmacy [facility] * Preadmission Environment Home Alone * ADLs Independent * Equipment Cane Oxygen Rolling Walker * Other Equipment [facility] is O2 provider. Patient does not have portable. * List name and contact numbers for known caregivers / representatives who currently or will assist patient after discharge: Jyotsna Verdin Darren BRIDGES /alyson loborosaline - [phone] Janelle Verdin Darren loborosaline - [phone] * Verbal permission to speak to the caregivers and representatives has been obtained from the patient. Yes * Community resources currently utilized Home Health * Please name any agencies selected above. [facility]. * Additional services required to return to the preadmission environment? Yes * Can the patient safely return to the preadmission environment? Yes * Has this patient been hospitalized within the prior 30 days at any hospital? Yes Patient Name: NAYAN TATUM Page [id number] at 1746 All edits/amendments must be made on the electronic document DICTATION DATE: 02/05/191744 DENTAL AMALGAM PROCESSOR: KIRAN 02/05/191744 RPT#: [id number] DC DATE: STATUS: ADM IN [facility] [address] [place] [address] END OF REPORT
--- NOTE | 2019-02-05 18:03 | NUR ---
1730 VASO WEANED OFF, PER DR ROSE DID NOT BEGIN WEANING VASO UNTIL PRBCS INFUSED,
--- NOTE | 2019-02-05 19:14 | NUR ---
BEDSIDE SHIFT REPORT GIVEN BY DEPARTING RN. PT LAYING IN BED WITH EYES OPEN ON VENT. NO RESTRAINTS. NO SEDATION. DENIES PAIN. AAOX4. WRITES TO NURSE ON CLIPBOARD. FOLLOWS COMMANDS. RT A LINE NOTED. RT IJ INFUSING MD ORDERED MED PATENTLY. F/C DRAINING TO GRAVITY WITH CLEAR YELLOW URINE IN DRAINAGE BAG. SEE FLOWSHEET FOR FULL ASSESSMENT DETAILS. ALL NEEDS MET AT THIS TIME. SAFETY MEASURES IN PLACE. CBIR.
--- NOTE | 2019-02-05 23:47 | NUR ---
REASSESSMENT COMPLETE. NO CHANGES NOTED IN PT CONDITION. REPOSITIONED. REFUSED BATH AND LINEN CHANGE. WILL ATTEMPT AGAIN AT A LATER TIME. ORAL CARE PROVIDED. ALL REQUESTS ACCOMMODATED. SAFETY MEASURES IN PLACE. CBIR.
[2019-02-06] VITALS (24 sets, daily range): BP systolic 99–131; BP diastolic 57–87
--- NOTE | 2019-02-06 00:13 | NUR ---
BP ELEVATED. UPON ENTERING ROOM PT LOOKED DISTRESSED. WHEN ASKED WHAT WAS WRONG, PT WROTE ON CLIPBOARD "I HAD A NIGHTMARE. A CULT CAME AND TOOK ME AWAY FROM MY FRIENDS. IT WAS AWFUL" PT CALMED DOWN QUICKLY AFTERWARDS. SAFETY MEASURES IN PLACE. CBIR.
--- NOTE | 2019-02-06 03:16 | NUR ---
REASSESSMENT COMPLETE. NO CHANGES NOTED TO PT CONDITION. REPOSITIONED. DENIES BATH AND LINEN CHANGE. WILL ATTEMPT AGAIN LATER. VSS. DENIES PAIN.
[2019-02-06 06:40] LABS: BASOPHILS 0 % (0-2); EOSINOPHILS 0.6 % (0-7); IMMATURE GRANULOCYTES 0.3 % (0-5); LYMPHOCYTES 14.1 % (15-50); MCHC 33.2 g/dL (31.0-37.0); MCV 90.2 fL (80.0-100.0); MEAN PLATELET VOLUME 10.6 fL (7.4-10.4); MONOCYTES 9.4 % (2-11); NEUTROPHILS 75.6 % (40-80); PLATELET COUNT 121 10x3/uL (130-400); RDW 18.8 % (11.5-14.5)
[2019-02-06 06:58] LABS: ALBUMIN 1.8 g/dL (3.4-5.0); BILIRUBIN - TOTAL 0.64 mg/dL (0.2-1.3); CALCIUM 8.1 mg/dL (8.5-10.1); CARBON DIOXIDE 21.7 mmol/L (21.0-32.0); CREATININE - SERUM 3.7 mg/dL (0.6-1.3); HEMATOCRIT 27.7 % (42.0-54.0); HEMOGLOBIN 9.2 g/dL (13.5-17.5); MAGNESIUM - SERUM 1.9 mg/dL (1.8-2.4); PROTEIN - SERUM 5.4 g/dL (6.4-8.2); RBC 3.07 10x6/uL (4.20-6.10); VANCOMYCIN - RANDOM 17.5 ug/mL (10.0-20.0); WBC 3.2 10x3/uL (4.8-10.8)
[2019-02-06 07:00] LABS: POTASSIUM - SERUM 3.7 mmol/L (3.5-5.1)
--- NOTE | 2019-02-06 07:00 | NUR ---
SHIFT ASSESSMENT COMPELTED. PT CARE ASSUMED. MONITORS ON AND WORKING, VITALS STABLE, HEART RATE CONTROLLED FLUTTER. PT AWAKE AND ALERT, ABD INCISION CDI, NO SIGNS/SYMPTOMS OF PAIN OR DISCOMFORT NOTED AT THIS TIME. WILL CONTINUE TO OBSERVE.
--- NOTE | 2019-02-06 09:00 | NUR ---
PT TOLERATING CPAP TRIAL WELL, NO SIGNS/SYMPTOMS OF PAIN OR DISCOMFORT NOTED. PT AWAKE AND ALERT, CALL LIGHT WITHIN REACH, WILL CONTINUE TO OBSERVE.
--- NOTE | 2019-02-06 09:27 | NUR ---
NUTRITION F/U PT REMAINS ON VENT. NO CURRENT NUTRITION SUPPORT. NG TUBE TO LIWS. RECOMMEND NUTRITION SUPPORT IF UNABLE TO START PO IN 24 [address] FOLLOWING
--- NOTE | 2019-02-06 11:00 | NUR ---
PT CONTINUES TO TOLERATE CPAP TRIAL WELL. FAMILY AT BEDSIDE, UPDATE PROVIDED. PT AWAKE AND ALERT, SEE FLOW SHEET FOR FURTHER DETAILS. CALL LIGHT WITHIN REACH. WILL CONTINUE TO OBSERVE.
--- NOTE | 2019-02-06 11:20 | NUR ---
PT EXTUBATED WITHOUT DIFFICULTY. DR HERNANDEZ AT BEDSIDE NIRAJ HIGGINS. NO NEW ORDERS
--- NOTE | 2019-02-06 11:36 | NUR ---
DR ROSE AT BEDSIDE GIVEN UPDATE A LINE WITHOUT GOOD WAVEFORM ORDERS RECEIVED TO D.C. A LINE REMOVED CATH INTACT DRSG APPLIED. DENIES NEEDS WILL CONTNIUE TO MONITOR
[2019-02-06] MEDS ORDERED: ZYLOPRIM100 MG (12:58)
--- NOTE | 2019-02-06 13:00 | NUR ---
PT EXTUBATED, ON 2L NC, PT TOLERATING WELL. NO SIGNS/SYMPTOMS OF PAIN OR DISCOMFORT NOTED AT THIS TIME, MONITORS ON AND WORKING, VITALS STABLE. CALL LIGHT WITHIN REACH. WILL CONTINUE TO OBSERVE.
--- NOTE | 2019-02-06 15:00 | NUR ---
PT SITTING UP IN BED, AWAKE AND ALERT, MONITORS ON AND WORKING, VITALS STABLE, NO SIGNS/SYMPTOMS OF PAIN OR DISCOMFORT NOTED AT THIS TIME, CALL LIGHT WITHIN REACH, WILL CONTINUE TO OBSERVE. SEE FLOW SHEET FOR FURTHER DETIALS. WILL CONTINUE TO OBSERVE.
--- NOTE | 2019-02-06 16:25 | NUR ---
OT NOTE: PT COMPLETED BED MOB TASKS WITH MAX A. PT COMPLETED EOB SITTING WITH MIN A/CGA. PT COMPLETED HYGIENE TASK AT EOB WITH SET UP. 150/222 THANK YOU, JOSE MARIA GARZA
--- NOTE | 2019-02-06 17:00 | NUR ---
PT RESTING, MONITORS ON AND WORKING, VITALS STABLE, ICE CHIPS GIVEN PER PTS REQUEST, CALL LIGHT WITHIN REACH, WILL CONTINUE TO OBSERVE.
--- NOTE | 2019-02-06 19:30 | NUR ---
ASSSESSMENT COMPLETE. PT DENIES NEEDS. VSS
--- NOTE | 2019-02-06 23:35 | NUR ---
NO CHANGES. GIVEN ICE CHIPS PER REQUEST.
[2019-02-07] VITALS (22 sets, daily range): BP systolic 94–143; BP diastolic 64–92
[2019-02-07 06:00] LABS: BASOPHILS 0.2 % (0-2); EOSINOPHILS 1.5 % (0-7); HEMATOCRIT 29.9 % (42.0-54.0); HEMOGLOBIN 9.8 g/dL (13.5-17.5); IMMATURE GRANULOCYTES 0.4 % (0-5); LYMPHOCYTES 13.2 % (15-50); MCH 30.3 pg (26.0-34.0); MCHC 32.8 g/dL (31.0-37.0); MONOCYTES 9.3 % (2-11); NEUTROPHILS 75.4 % (40-80); PLATELET COUNT 139 10x3/uL (130-400); RBC 3.23 10x6/uL (4.20-6.10); RDW 18.7 % (11.5-14.5)
[2019-02-07 06:02] LABS: MCV 92.6 fL (80.0-100.0); WBC 5.4 10x3/uL (4.8-10.8)
[2019-02-07 06:13] LABS: ALBUMIN 1.8 g/dL (3.4-5.0); BILIRUBIN - TOTAL 0.69 mg/dL (0.2-1.3); CALCIUM 8.4 mg/dL (8.5-10.1); CARBON DIOXIDE 18.2 mmol/L (21.0-32.0); CREATININE - SERUM 3.3 mg/dL (0.6-1.3); POTASSIUM - SERUM 3.2 mmol/L (3.5-5.1); PROTEIN - SERUM 5.6 g/dL (6.4-8.2); VANCOMYCIN - RANDOM 23.3 ug/mL (10.0-20.0)
--- NOTE | 2019-02-07 07:00 | NUR ---
SHIFT ASSESSMENT COMPLETED. PT CARE ASSUMED. MONITORS ON AND WORKING, VITALS STABLE. PT AWAKE AND ALERT, NO SIGNS/SYMPTOMS OF PAIN OR DISCOMFORT NOTED AT THIS TIME. CALL LIGHT WITHIN REACH, SEE FLOW SHEET FOR FURTHER DETIALS, WILL CONTINUE TO OBSERVE.
--- NOTE | 2019-02-07 07:00 | NUR ---
SHIFT ASSESSMENT COMPLETED, PT CARE ASSUMED, MONITORS ON AND WORKING, VITALS STABLE, VENT SETTINGS NOTED, CT IN PLACE, DRESSING CDI. NO SIGNS/SYMPTOMS OF PAIN OR DISCOMFORT NOTED AT THIS TIME. WILL CONTINUE TO OBSERVE.
--- NOTE | 2019-02-07 09:00 | NUR ---
DR GRAYSON AT BEDSIDE, LEONILA DRAIN EMPTIED, ABD INCISION OPEN TO AIR, PT AWAKE AND ALERT, TOLERATES CLEAR LIQUIDS WELL. MONITORS ON AND WORKING, VITALS STABLE, CALL LIGHT WITHIN REACH, WILL CONTINUE TO OBSERVE.
--- NOTE | 2019-02-07 09:15 | NUR ---
Nutrition follow-up: Pt extubated 5/2 Pt with possible fecal impaction per xray Small amounts of clear liquids per surgery Labs reviewed Wt: 218# Pt tx to floor soon RDN following.
--- NOTE | 2019-02-07 11:00 | NUR ---
NO CHANGES, PT AWAKE AND ALERT, UP TO CHAIR PER PT. MONITORS ON AND WORKING, VITALS STABLE, SEE FLOW SHEET FOR FURTHER DETAILS. WILL CONTINUE TO OBSERVE.
--- NOTE | 2019-02-07 13:00 | NUR ---
RAZA D/C, TRIALYSIS CATH D/C, PRESSURE HELD FOR A PERIOD OF TIME. MIDLINE PLACED PER VASCULAR ACCESS NURSE AND INFUSING IVF, FAMILY AT BEDSIDE, UPDATE PROVIDED. MONITORS ON AND WORKING, VITALS STABLE, NO SIGNS/SYMPTOMS OF PAIN OR DISCOMFORT, CALL LIGHT WITHIN REACH, WILL CONTINUE TO OBSERVE.
--- NOTE | 2019-02-07 13:34 | NUR ---
Rehab Note- Acute Inpatient Rehab prescreen order received. The patient has A[employer] insurance and will require a PreAuth prior to an inpatient acute rehab stay. Will begin PreAuth process. Will continue to follow at this time. Thank you for this referral! Nancy Rodriguez RN Clinical Liaison, [facility] Rehab
--- NOTE | 2019-02-07 15:00 | NUR ---
PT BACK INTO BED, MONITORS ON AND WORKING, VITALS STABLE, SEE FLOW SHEET FOR FURTHER DETAILS. CALL LIGHT WITHIN REACH, WILL CONTINUE TO OBSERVE.
--- NOTE | 2019-02-07 15:11 | OP ---
PATIENT NAME: NAYAN TATUM MEDICAL RECORD: [id number] :38 LOCATION:.[facility] D.2312 ADMISSION DATE:02/03/19 SURGEON: LOYD SARGENT MD DATE OF OPERATION: 02/04/2019 PREOPERATIVE DIAGNOSES: 1. Acute renal failure. 2. Hypotension. POSTOPERATIVE DIAGNOSES: 1. Acute renal failure. 2. Hypotension. PROCEDURES: Insertion of right internal jugular Trialysis catheter (non-cuffed, non-tunneled hemodialysis catheter). SURGEON: Loyd Sargent MD ORACLE DATABASE DEVELOPER: None. BLOOD LOSS: Minimal. ANESTHESIA: Local. COMPLICATIONS: None. The risks, possible complications and alternatives to the procedure were explained to the patient. A consent form was signed. OPERATIVE COURSE: The patient was seen in his ICU room. The right neck was sterilely prepped and draped. A local anesthetic was used to infiltrate the skin and subcutaneous tissue of the right neck. The right internal jugular vein was percutaneously accessed in an antegrade fashion under ultrasonographic guidance. A guidewire passed easily. A small skin jeremy was accomplished. A vessel dilator was used to dilate the subcutaneous tract. A short Trialysis catheter was inserted to the hub. It was sutured in place times 3. All lumens flushed easily and aspirated dark, nonpulsatile blood. A stat portable chest x-ray is pending. TRANSINT:[id number] Voice Confirmation ID: [id number] DOCUMENT ID: [id number] LOYD SARGENT MD at 1511 CC: [id number] DICTATION DATE: 02/04/19 1050 EXECUTIVE ASSISTANT TO GENERAL COUNSEL: 02/04/19 1111 ADM IN [place] [id number] [place] [address]
--- NOTE | 2019-02-07 16:32 | NUR ---
Rehab Note- PreAuth started, Ref #[id number]. Awaiting for request of clinicals to be faxed for review for possible inpatient acute rehab stay. Will continue to follow. Thank you for this referral! Nancy Rodriguez RN Clinical Liaison, [facility] Rehab
--- NOTE | 2019-02-07 17:00 | NUR ---
FAMILY AT BEDSIDE, UPDATE PROVIDED. MONITORS ON AND WORKING, VITALS STABLE, CALL LIGHT WITHIN REACH, WILL CONTINUE TO OBSERVE.
--- NOTE | 2019-02-07 22:45 | NUR ---
PATIENT HAD LARGE LIQUID BOWEL MOVEMENT, FULL LINEN CHANGE AND PARTIAL BATH GIVEN. REASSESSMENT COMPLETED. SEE FLOWSHEET. VSS CPOC
--- NOTE | 2019-02-08 02:00 | NUR ---
PT COMMUNICATIONS EDITOR LIGHT, PLACED ON BED CASTELLON AT THIS TIME
--- NOTE | 2019-02-08 02:46 | NUR ---
PATIENT SIGNAL MECHANIC LIGHT, PLACED ON BED CASTELLON AT THIS TIME
[2019-02-08 03:00] VITALS: BP 122/83
--- NOTE | 2019-02-08 03:36 | NUR ---
REASSESSMENT COMPLETED SEE FLOWSHEET
[2019-02-08 05:26] LABS: BASOPHILS 0.2 % (0-2); EOSINOPHILS 1.7 % (0-7); HEMATOCRIT 33.1 % (42.0-54.0); HEMOGLOBIN 10.9 g/dL (13.5-17.5); IMMATURE GRANULOCYTES 0.7 % (0-5); LYMPHOCYTES 12.5 % (15-50); MCH 30.4 pg (26.0-34.0); MCHC 32.9 g/dL (31.0-37.0); MCV 92.5 fL (80.0-100.0); MEAN PLATELET VOLUME 11.8 fL (7.4-10.4); MONOCYTES 13.8 % (2-11); NEUTROPHILS 71.1 % (40-80); PLATELET COUNT 137 10x3/uL (130-400); RBC 3.58 10x6/uL (4.20-6.10); RDW 18.3 % (11.5-14.5); WBC 5.9 10x3/uL (4.8-10.8)
[2019-02-08 05:28] LABS: ALBUMIN 1.7 g/dL (3.4-5.0); BILIRUBIN - TOTAL 0.67 mg/dL (0.2-1.3); CALCIUM 8.2 mg/dL (8.5-10.1); CARBON DIOXIDE 17.1 mmol/L (21.0-32.0); CREATININE - SERUM 2.9 mg/dL (0.6-1.3); MAGNESIUM - SERUM 1.8 mg/dL (1.8-2.4); PROTEIN - SERUM 5.8 g/dL (6.4-8.2); VANCOMYCIN - RANDOM 17.4 ug/mL (10.0-20.0)
[2019-02-08 05:29] LABS: POTASSIUM - SERUM 4.1 mmol/L (3.5-5.1)
--- NOTE | 2019-02-08 06:07 | NUR ---
PATIENT INCONTINENT BOWEL MOVEMENT - FULL LINEN CHANGE PERFORMED
--- NOTE | 2019-02-08 07:36 | NUR ---
RANDOM VANCOMYCIN WAS 17.4, WILL GIVE A 500 MG DOSE OF VANCOMYCIN. ORDERED A RANDOM VANCOMYCIN FOR 02/09. LAST DOSE OF THE ORIGINAL COURSE IS TODAY.
[2019-02-08 08:00] VITALS: BP 123/86
--- NOTE | 2019-02-08 08:00 | NUR ---
ASSESSED. LARGE LIQUID DARK MAROON/ BLACK PER BEDPAN. LINENS CHANGED- SPECIMEN SENT FOR CDT. DR GRAYSON ROUNDS - AWARE MULTIPLE DIARRHEA EPISODES DURING NIGHT AND THIS AM.
--- NOTE | 2019-02-08 10:00 | NUR ---
RESTING COMFORTABLY WITH EYES CLOSED/ RESP UNLABORED.
[2019-02-08 11:21] VITALS: BP 109/79
--- NOTE | 2019-02-08 13:30 | NUR ---
UP IN CHAIR PER PT FOR MEAL. VISITORS IN AND UPDATED.
--- NOTE | 2019-02-08 13:42 | NUR ---
DR CORTES HERE TO PRONONCE . FAMILY AT BEDSIDE, TEARFUL, EMOTIONAL SUPPORT OFFERED.
--- NOTE | 2019-02-08 16:00 | NUR ---
REPORT CALLED TO TR TO ROOM 2224 VIA CHAIR .
--- NOTE | 2019-02-08 16:27 | NUR ---
PT ICU TRANSFER. ALERT AND ORIENTED. NO C/O PAIN. NO S/S OF ACUTE DISTRESS NOTED. LEFT UPPER ARM MIDLINE, SITE PATENT WITHOUT REDNESS OR SWELLING. UP WITH ASSISTANCE. MIDLINE INCISION OF ABDOMEN, CLIPS OPEN TO AIR. PT ON ENTERIC PRECAUTIONS FOR C-DIFF. ON 2L O2, NC. LEFT LEONILA DRAIN, DRESSING C/D/I. FULL LIQUID DIET. ON ELECTROLYTE PROTOCOL. PT DENIES ANYTHING FURTHER AT THIS TIME. CALL LIGHT IN REACH. WILL CONTINUE TO MONITOR.
--- NOTE | 2019-02-08 17:17 | NUR ---
I have reviewed this patient and I concur with the Shift Assessment completed by the Licensed Practical Nurse today this shift.
--- NOTE | 2019-02-08 18:16 | NUR ---
PT SITTING UP IN CHAIR. NO C/O PAIN. NO S/S OF ACUTE DISTRESS NOTED. PT DENIES ANYTHING FURTHER AT THIS TIME. CALL LIGHT IN REACH. WILL CONTINUE TO MONITOR.
--- NOTE | 2019-02-08 19:15 | NUR ---
RECEIVED CARE FROM DAY NURSE. SITTING UP IN CHAIR. EYES CLOSED. RESP EVEN AND UNLABORED. IV INFUSING PER ORDER TO LEFT PATENT MIDLINE.
--- NOTE | 2019-02-08 20:00 | NUR ---
CALLED TO ROOM. REPORTS HE HAS HAD A BM. BM PUDDLED ON FLOOR. ASSISTED TO STANDING AND CLEANED AND TRANSFERRED TO BED WITH ASSIST OF NURSE AND ADD. NEW SOCKS APPLIED AND GOWN. NO OTHER NEEDS AT THIS TIME. CALL LIGHT AT SIDE.
[2019-02-08 21:01] VITALS: BP 96/59
--- NOTE | 2019-02-09 00:15 | NUR ---
ABLE TO CALL IN TIME FOR BEDPAN. SAMPLE TAKEN TO LAB.
[2019-02-09 05:21] VITALS: BP 112/69
[2019-02-09 05:48] LABS: BASOPHILS 0.3 % (0-2); EOSINOPHILS 2.4 % (0-7); HEMATOCRIT 31.3 % (42.0-54.0); HEMOGLOBIN 10.1 g/dL (13.5-17.5); IMMATURE GRANULOCYTES 0.5 % (0-5); LYMPHOCYTES 17.4 % (15-50); MCH 30.1 pg (26.0-34.0); MCHC 32.3 g/dL (31.0-37.0); MCV 93.4 fL (80.0-100.0); MONOCYTES 12.3 % (2-11); NEUTROPHILS 67.1 % (40-80); PLATELET COUNT 137 10x3/uL (130-400); RBC 3.35 10x6/uL (4.20-6.10); RDW 18.2 % (11.5-14.5); WBC 6.3 10x3/uL (4.8-10.8)
[2019-02-09 06:06] LABS: ALBUMIN 1.7 g/dL (3.4-5.0); BILIRUBIN - TOTAL 0.51 mg/dL (0.2-1.3); CALCIUM 7.9 mg/dL (8.5-10.1); CREATININE - SERUM 2.7 mg/dL (0.6-1.3); PROTEIN - SERUM 5.1 g/dL (6.4-8.2); VANCOMYCIN - RANDOM 19.5 ug/mL (10.0-20.0)
[2019-02-09 06:10] LABS: ANION GAP 12.7 mmol/L (8-16); CARBON DIOXIDE 22.6 mmol/L (21.0-32.0); POTASSIUM - SERUM 3.3 mmol/L (3.5-5.1)
--- NOTE | 2019-02-09 08:29 | NUR ---
PATIENTS RANDOM VANCOMYCIN LEVEL WAS 19.5 THIS AM WILL NOT REDOSE TODAY. ORIGINALLY WRITTEN FOR A 5 DAY COURSE, COURSE IS COMPLETE. PLEASE REORDER IF FURTHER DOSING IS NEEDED
[2019-02-09 09:25] VITALS: BP 108/64
[2019-02-09 12:20] VITALS: BP 111/61
--- NOTE | 2019-02-09 15:12 | NUR ---
I have reviewed this patient and I concur with the Shift Assessment completed by the Licensed Practical Nurse today this shift.
--- NOTE | 2019-02-09 15:44 | NUR ---
PT KEO FELDMAN BED ASLEEP STATED THAT HE IS WORN OUT TODAY, NO S/S OF DISTRESS, LEONILA DRAIN PULLED BEFORE LUNCH OUT PUT AT TIMEOF REMOVAL WAS 50. SITE HAS DRESSING CDI, CONTINUE WITH PLAN OF CCARE
[2019-02-09 16:36] VITALS: BP 105/57
--- NOTE | 2019-02-09 19:15 | NUR ---
RECEIVED CARE FROM DAY NURSE. SITTING UP IN BED. EYES CLOSED, RESP EVEN AND UNLABORED. CALL LIGHT AT SIDE. IV INFUSING PER ORDER TO PATENT LEFT MIDLINE.
[2019-02-09 19:45] VITALS: BP 93/56
[2019-02-10 00:24] VITALS: BP 104/57
[2019-02-10 04:48] VITALS: BP 111/61
[2019-02-10 05:53] LABS: BASOPHILS 0.2 % (0-2); EOSINOPHILS 2.4 % (0-7); HEMATOCRIT 32.5 % (42.0-54.0); HEMOGLOBIN 10.2 g/dL (13.5-17.5); IMMATURE GRANULOCYTES 0.8 % (0-5); LYMPHOCYTES 23.6 % (15-50); MCH 29.8 pg (26.0-34.0); MCHC 31.4 g/dL (31.0-37.0); MEAN PLATELET VOLUME 11.2 fL (7.4-10.4); MONOCYTES 10.1 % (2-11); NEUTROPHILS 62.9 % (40-80); PLATELET COUNT 156 10x3/uL (130-400); RBC 3.42 10x6/uL (4.20-6.10); RDW 18.1 % (11.5-14.5); WBC 6.3 10x3/uL (4.8-10.8)
[2019-02-10 06:05] LABS: ALBUMIN 1.8 g/dL (3.4-5.0); ANION GAP 11.9 mmol/L (8-16); BILIRUBIN - TOTAL 0.57 mg/dL (0.2-1.3); CALCIUM 7.6 mg/dL (8.5-10.1); CARBON DIOXIDE 25.3 mmol/L (21.0-32.0); CREATININE - SERUM 2.6 mg/dL (0.6-1.3); POTASSIUM - SERUM 4.2 mmol/L (3.5-5.1); PROTEIN - SERUM 5.2 g/dL (6.4-8.2); VANCOMYCIN - RANDOM 15.7 ug/mL (10.0-20.0)
[2019-02-10 08:42] VITALS: BP 107/61
--- NOTE | 2019-02-10 10:23 | NUR ---
PT UP IN CHAIR, PER THERAPY. TOLERATED WELL. NO COMPLAINTS AT THIS TIME. REQUESTED ICE CHIPS, TOLERATED WELL. L UPPER MIDLINE, PATENT NON TENDER, NO SIGNS OF INFILTRATION OR INFECTION NOTED. O2 @ 2L, VIA NC. CALL LIGHT AND BEDSIDE TABLE IN REACH. ROOM FREE OF CLUTTER. NO OTHER NEEDS VOICED AT THIS TIME. WILL CONTINUE TO MONITOR.
--- NOTE | 2019-02-10 13:12 | NUR ---
LYING IN BED,WITHOUT DISTRESS.ISOLATION MAINTAINED
[2019-02-10 13:27] VITALS: BP 106/80
--- NOTE | 2019-02-10 14:09 | NUR ---
NUTRITION F/U PT REMAINS IN ISOLATION. TOLERATING REG DIET WITH GOOD INTAKE RECENT MEALS. WILL CONTINUE TO PROVIDE DIET, HONOR FOOD PREFERENCES. RD FOLLOWING
--- NOTE | 2019-02-10 17:14 | NUR ---
Rehab Note- Spoke with Brendan with [facility], faxed clinicals d/t not having been contacted for clinical request since Wednesday 02/07. Faxed clinicals. WIll continue to await determination. Nancy Rodriguez RN Clinical Liaison, [facility] Rehab
[2019-02-10 18:14] LABS: APPEARANCE CLEAR (CLEAR); BILIRUBIN NEGATIVE (NEGATIVE); COLOR YELLOW (YELLOW); GLUCOSE NEGATIVE (NEGATIVE); KETONE NEGATIVE (NEGATIVE); NITRITE NEGATIVE (NEGATIVE); PROTEIN TRACE mg/dL (NEGATIVE); UROBILINOGEN NORMAL (NORMAL)
[2019-02-10 18:16] LABS: BACTERIA FEW /hpf (NONE SEEN); EPITHELIAL CELLS 0-5 /hpf (0-5); RED CELLS - URINE 0-5 /hpf (0-5); WHITE CELLS - URINE 0-5 /hpf (0-5)
[2019-02-10 18:36] VITALS: BP 112/82
--- NOTE | 2019-02-10 19:40 | NUR ---
PT SITTING UP IN BED, WITHOUT DISTRESS. ALERT AND ORIENTED. IV LEFT UPPER ARM INFUSING D5NS W/ 40K+ @ 75. PT HAVING SEMI FORMED STOOL AT THIS TIME. ABD INCISIONS W/ CAMERON OPEN TO AIR, CDI. O2 2L/NC. PRODUCTIVE COUGH W/ CLEAR SPUTUM. DENIES NEEDS AT THIS TIME. CL IN REACH, WILL CONT TO MONITOR
[2019-02-10 21:12] VITALS: BP 108/54
[2019-02-11 01:43] VITALS: BP 109/57
[2019-02-11 05:38] VITALS: BP 110/59
--- NOTE | 2019-02-11 08:00 | NUR ---
ASSESSMENT PER FLOW SHEET. PT IS WIHTOUT DISTRESS.MONITOR
[2019-02-11 08:30] VITALS: BP 109/62
[2019-02-11 14:00] VITALS: BP 111/64
[2019-02-11 18:52] VITALS: BP 117/60
--- NOTE | 2019-02-11 19:22 | NUR ---
PT REMAINS WITHOUT CHANGE.CONT PLAN OF CARE
--- NOTE | 2019-02-11 19:45 | NUR ---
PT SITTING UP IN BED, NO SIGNS OF DISTRESS. ALERT AND ORIENTED. LEFT UPPER ARM ML SL. O2 2L/NC. HR 64 ATRIAL FLUTTER. ABD INCISIONS WITH CAMERON CDI. DRESSING TO LLQ CDI. DENIES PAIN AT THIS TIME. CL IN REACH, WILL CONT TO MONITOR
--- NOTE | 2019-02-11 20:08 | NUR ---
OT NOTE: PT VERY UPSET REGARDING NUMEROUS THINGS. APPROX 20 MIN SPENT ASSISTING PT WITH INFO REGARDING HIS SITUATION. PT WANTING TO GO TO REHAB, HE IS AWARE HE IS UNABLE TO GO HOME AT THIS TIME DUE TO LIVING ALONE. PT STATES THAT NO ONE HAS TALKED TO HIM TODAY TO LET HIM KNOW THE PLANS. STATED DR CAME IN THIS AM AND STATED THAT HE COULD BE DCD. PT UNDER THE IMPRESSION THAT HE HAD TO GO HOME. EXPLAINED THAT DR JUST STATED THAT HE WAS OK FOR DC FROM HIS STANDPOINT, BUT OTHER DRS HAD TO PROVIDE THEIR INPUT. NUMEROUS QUESIONS AND CONCERNS ANSWERED. MET WITH CM AND SHE WAS ON HER WAY TO TALK WITH PT REGARDING DC PLANS. MICHAEL MORLEY,Derick TR/L
[2019-02-11 21:37] VITALS: BP 100/51
[2019-02-12] VITALS (7 sets, daily range): BP systolic 95–133; BP diastolic 54–74; Ht 175.3 cm; Wt 100.9 kg
[2019-02-12 06:37] LABS: BASOPHILS 0.1 % (0-2); EOSINOPHILS 2.6 % (0-7); HEMATOCRIT 30.6 % (42.0-54.0); HEMOGLOBIN 9.4 g/dL (13.5-17.5); IMMATURE GRANULOCYTES 0.5 % (0-5); LYMPHOCYTES 21.9 % (15-50); MCH 29.9 pg (26.0-34.0); MCHC 30.7 g/dL (31.0-37.0); MEAN PLATELET VOLUME 11.7 fL (7.4-10.4); MONOCYTES 8.5 % (2-11); NEUTROPHILS 66.4 % (40-80); RBC 3.14 10x6/uL (4.20-6.10); RDW 18.2 % (11.5-14.5); WBC 7.4 10x3/uL (4.8-10.8)
[2019-02-12 07:05] LABS: MCV 97.5 fL (80.0-100.0); PLATELET COUNT 202 10x3/uL (130-400)
[2019-02-12 07:06] LABS: ANION GAP 12.4 mmol/L (8-16); CALCIUM 7.8 mg/dL (8.5-10.1); CARBON DIOXIDE 22.4 mmol/L (21.0-32.0); CREATININE - SERUM 2.4 mg/dL (0.6-1.3); POTASSIUM - SERUM 4.8 mmol/L (3.5-5.1); VANCOMYCIN - RANDOM 26.8 ug/mL (10.0-20.0)
--- NOTE | 2019-02-12 08:45 | NUR ---
PT SITTING UP IN BED. NO ACUTE DISTRESS NOTED. O2 @ 2L NC IN PLACE. DENIES PAIN AT THIS TIME. ML TO LEFT UPPER ARM SALINE LOC'D, SITE WITHOUT REDNESS OR EDEMA. PT DENIES FURTHER NEEDS AT THIS TIME CL WITHIN REACH. ENCOURAGED TO CALL WITH NEEDS. CONTINUE POC
--- NOTE | 2019-02-12 09:47 | NUR ---
Rehab Note- Received voicemail this AM from Arlin with [facility] (phone #[phone]) was a denial for an inpatient acute rehab stay. A peer to peer can be set up by 1630 today 02/12/19 by calling [phone] option#4 & it will be with Dr. Lee. Spoke with DANI Nicole. Will continue to follow at this time. Thank you for this referral! Nancy Rodriguez RN Clinical Liaison, [facility] Rehab
--- NOTE | 2019-02-12 12:50 | MORECARE ---
CASE MANAGEMENT DISCHARGE SUMMARY PATIENT: NAYAN TATUM UNIT: [id number] ADM DATE: 02/03/19 AGE: 78 : 39 SEX: M ROOM/BED: D.2225 AUTHOR: JOSE,DOC PHYSICIAN: REFERRING PHYSICIAN: MARVIN OLIVIA MD DATE OF SERVICE: 02/12/19 Discharge Plan Patient Name: NAYAN TATUM Facility: [facility]:[place] : 1940 Planned Disposition: Anticipated Discharge Date: Discharge Date: Expected LOS: Initial Reviewer: [email or web address] Initial Review Date: 02/05/2019 Generated: 02/12/19 1:49 pm DCP- Discharge Planning Updated by [email or web address]: Bessie Loja on 02/03/19 4:[address] Patient Name: NAYAN TATUM Admission Status: ER Accout number: [id number] Admission Date: 02-03-2019 : 1940 Admission Diagnosis: Attending: MARVIN MANUEL Current LOS: 1 Anticipated DC Date: Planned Disposition: Primary Insurance: AETNA PPO Discharge Planning Comments: CM met with patient, his great niece/POA Jyotsna Verdin, and ambreen Mota, to complete initial dc planning assessment. CM educated patient on the CM role and verbal consent given by patient to complete assessment. Patient lives at home alone. Patient currently has [facility] and wishes to resume at discharge if he is able to return home. HERSON form signed by patient's POA for resumption of [facility] or [facility] or [facility]. Signed form placed in chart and signed form given to patient. At discharge patient plans to return home if he is able if not he will want to go to rehab at either [facility] or [facility] and feels this is a safe discharge. Patient's POA denied further known discharge needs at this time. Patient's niece will transport him home if dc to home. CM will continue to follow and will assist as needed with dc plans/needs. Wilderness Guide: Bessie Loja DCPIA - Discharge Planning Initial Assessment Updated by [email or web address]: Bessie Loja on 02/03/19 5:07 pm * Is the patient Alert and Oriented? Yes * How many steps to enter\exit or inside your home? None * PCP Dr. Sands * Pharmacy [facility] * Preadmission Environment Home Alone * ADLs Independent * Equipment Cane Oxygen Rolling Walker * Other Equipment [facility] is O2 provider. Patient does not have portable. * List name and contact numbers for known caregivers / representatives who currently or will assist patient after discharge: Jyotsna Verdin Darren BRIDGES ericka crook - [phone] Janelle crook - [phone] * Verbal permission to speak to the caregivers and representatives has been obtained from the patient. Yes * Community resources currently utilized Home Health * Please name any agencies selected above. [facility]. * Additional services required to return to the preadmission environment? Yes * Can the patient safely return to the preadmission environment? Yes * Has this patient been hospitalized within the prior 30 days at any hospital? Yes External Providers External Provider: [facility] Next Contact Date: Service Request Date: Service Type: Resolution: Reviewer: Comments: Coverage Notice Reviewer: [id number] Darren Ramirez Notice Issued Date-Time: 02/11/2019 14:28 Notice Type: IM Discharge Notice Notice Delivered To: Patient Relationship to Patient: Self Leather Sorter Name: Delivery Method: HAND - Hand Delivered [place] Days: Prior Verbal Notification: Recipient Understood Notice: Yes Recipient Signature: Yes Med Rec Note Co-signed by Attending: Coverage Notice Comment: IMM explained, signed, given, copy placed in MR Last DP export: 02/05/19 4:45 pm Patient Name: NAYAN TATUM Page 73700 at 1250 All edits/amendments must be made on the electronic document DICTATION DATE: 02/12/19 1249 VICE PRESIDENT GLOBAL DIGITAL MARKETING: KIRAN 02/12/19 1249 RPT#: [id number] DC DATE: STATUS: ADM IN [facility] [address] [place] [address] END OF REPORT
--- NOTE | 2019-02-12 12:57 | MORECARE ---
CASE MANAGEMENT DISCHARGE SUMMARY PATIENT: NAYAN TATUM UNIT: [id number] ADM DATE: 02/03/19 AGE: 78 : 39 SEX: M ROOM/BED: D.2225 AUTHOR: JOSE,DOC PHYSICIAN: REFERRING PHYSICIAN: MARVIN OLIVIA MD DATE OF SERVICE: 02/12/19 Discharge Plan Patient Name: NAYAN TATUM Facility: [facility]:[place] : 1940 Planned Disposition: Anticipated Discharge Date: Discharge Date: Expected LOS: Initial Reviewer: [id number] Initial Review Date: 02/05/2019 Generated: 02/12/19 1:57 pm Comments DCP- Discharge Planning Updated by [id number]: Bonnieyessenia Ramirez on 02/12/19 11:[address] He has been denied inpatient rehab by [employer] after peer 2 peer. I informed the patient, he would like to go to [facility], H[place] form signed. I called and spoke to Bessie and clinical faxed to [facility]. CM will continue to follow and assist with discharge planning/needs. DCP- Discharge Planning Updated by [id number]: Bessie Loja on 02/03/19 4:[address] Patient Name: NAYAN TATUM Admission Status: ER Accout number: [id number] Admission Date: 02-03-2019 : 1940 Admission Diagnosis: Attending: MARVIN MANUEL Current LOS: 1 Anticipated DC Date: Planned Disposition: Primary Insurance: [employer] PPO Discharge Planning Comments: CM met with patient, his great niece/POA Jyotsna Verdin, and ambreen Mota, to complete initial dc planning assessment. CM educated patient on the CM role and verbal consent given by patient to complete assessment. Patient lives at home alone. Patient currently has [facility] and wishes to resume at discharge if he is able to return home. HERSON form signed by patient's POA for resumption of [facility] or [facility] or [facility]. Signed form placed in chart and signed form given to patient. At discharge patient plans to return home if he is able if not he will want to go to rehab at either [facility] or [facility] and feels this is a safe discharge. Patient's POA denied further known discharge needs at this time. Patient's niece will transport him home if dc to home. CM will continue to follow and will assist as needed with dc plans/needs. Patient Safety Attendant: Bessie Loja DCPIA - Discharge Planning Initial Assessment Updated by [id number]: Bessie Loja on 02/03/19 5:07 pm * Is the patient Alert and Oriented? Yes * How many steps to enter\exit or inside your home? None * PCP Dr. Sands * Pharmacy [facility] * Preadmission Environment Home Alone * ADLs Independent * Equipment Cane Oxygen Rolling Walker * Other Equipment [employer] is O2 provider. Patient does not have portable. * List name and contact numbers for known caregivers / representatives who currently or will assist patient after discharge: Jyotsna BRIDGES /alyson crook - [phone] Janelle crook - [phone] * Verbal permission to speak to the caregivers and representatives has been obtained from the patient. Yes * Community resources currently utilized Home Health * Please name any agencies selected above. [facility]. * Additional services required to return to the preadmission environment? Yes * Can the patient safely return to the preadmission environment? Yes * Has this patient been hospitalized within the prior 30 days at any hospital? Yes Coverage Notice Reviewer: [email or web address] Darren Ramirez Notice Issued Date-Time: 02/11/2019 14:28 Notice Type: IM Discharge Notice Notice Delivered To: Patient Relationship to Patient: Self Rehab Nurse Name: Delivery Method: HAND - Hand Delivered Floresita Days: Prior Verbal Notification: Recipient Understood Notice: Yes Recipient Signature: Yes Med Rec Note Co-signed by Attending: Coverage Notice Comment: IMM explained, signed, given, copy placed in MR Reviewer: [email or web address] Darren Ramirez Notice Issued Date-Time: 02/12/2019 12:54 Notice Type: Patient Choice Letter Notice Delivered To: Patient Relationship to Patient: Rehab Nurse Name: Delivery Method: HAND - Hand Delivered Floresita Days: Prior Verbal Notification: Recipient Understood Notice: Yes Recipient Signature: Yes Med Rec Note Co-signed by Attending: Coverage Notice Comment: [facility] for [facility] Last DP export: 02/12/19 11:50 am Patient Name: DEEPTI, BURLE Page [id number] at 1257 All edits/amendments must be made on the electronic document DICTATION DATE: 02/12/191255 SKETCHER: KIRAN 02/12/191255 RPT#: [id number] DC DATE: STATUS: ADM IN [facility] [address] [place] [address] END OF REPORT
--- NOTE | 2019-02-12 15:14 | MORECARE ---
CASE MANAGEMENT DISCHARGE SUMMARY PATIENT: NAYAN TATUM UNIT: [id number] ADM DATE: 02/03/19 AGE: 78 : 39 SEX: M ROOM/BED: D.2225 AUTHOR: JOSE,DOC PHYSICIAN: REFERRING PHYSICIAN: MARVIN OLIVIA MD DATE OF SERVICE: 02/12/19 Discharge Plan Patient Name: NAYAN TATUM Facility: [facility]:[place] : 1940 Planned Disposition: Anticipated Discharge Date: Discharge Date: Expected LOS: Initial Reviewer: [id number] Initial Review Date: 02/05/2019 Generated: 02/12/19 4:13 pm Comments DCP- Discharge Planning Updated by [id number]: Bonnie Ramirez on 02/12/19 2:[address] CM called [facility] and spoke to Tamie. I gave her Arlin's number with the patient's insurance. Arlin states she can speed up the process for SNF authorization #[id number]. CM will continue to follow and assist with discharge planning/needs. DCP- Discharge Planning Updated by [id number]: Bonnie Ramirez on 02/12/19 11:[address] He has been denied inpatient rehab by [employer] after peer 2 peer. I informed the patient, he would like to go to [facility], [place] form signed. I called and spoke to Bessie and clinical faxed to [facility]. CM will continue to follow and assist with discharge planning/needs. DCP- Discharge Planning Updated by [id number]: Bessie Loja on 02/03/19 4:[address] Patient Name: NAYAN TATUM Admission Status: ER Accout number: [id number] Admission Date: 02-03-2019 : 1940 Admission Diagnosis: Attending: MARIVN MANUEL Current LOS: 1 Anticipated DC Date: Planned Disposition: Primary Insurance: [employer] PPO Discharge Planning Comments: CM met with patient, his great niece/POA Jyotsnayessenia Verdin, and Janelle Verdin, niece, to complete initial dc planning assessment. CM educated patient on the CM role and verbal consent given by patient to complete assessment. Patient lives at home alone. Patient currently has [facility] and wishes to resume at discharge if he is able to return home. HERSON form signed by patient's POA for resumption of [facility] or [facility] INVESTIGATIVE AGENT or [facility]. Signed form placed in chart and signed form given to patient. At discharge patient plans to return home if he is able if not he will want to go to rehab at either [facility] or [facility] and feels this is a safe discharge. Patient's POA denied further known discharge needs at this time. Patient's niece will transport him home if dc to home. CM will continue to follow and will assist as needed with dc plans/needs. Public Relations Sales Marketing: Bessie Loja DCPIA - Discharge Planning Initial Assessment Updated by [email or web address]: Bessie Loja on 02/03/19 5:07 pm * Is the patient Alert and Oriented? Yes * How many steps to enter\exit or inside your home? None * PCP Dr. Sands * Pharmacy [facility] * Preadmission Environment Home Alone * ADLs Independent * Equipment Cane Oxygen Rolling Walker * Other Equipment [facility] is O2 provider. Patient does not have portable. * List name and contact numbers for known caregivers / representatives who currently or will assist patient after discharge: Jyotsna Lambert BRIDGES /alyson crook - [phone] Janelle crook - [phone] * Verbal permission to speak to the caregivers and representatives has been obtained from the patient. Yes * Community resources currently utilized Home Health * Please name any agencies selected above. [facility]. * Additional services required to return to the preadmission environment? Yes * Can the patient safely return to the preadmission environment? Yes * Has this patient been hospitalized within the prior 30 days at any hospital? Yes Coverage Notice Reviewer: [id number] Darren Ramirez Notice Issued Date-Time: 02/11/2019 14:28 Notice Type: IM Discharge Notice Notice Delivered To: Patient Relationship to Patient: Self Asset Management Analyst Name: Delivery Method: HAND - Hand Delivered Floresita Days: Prior Verbal Notification: Recipient Understood Notice: Yes Recipient Signature: Yes Med Rec Note Co-signed by Attending: Coverage Notice Comment: IMM explained, signed, given, copy placed in MR Reviewer: [id number] Darren Ramirez Notice Issued Date-Time: 02/12/2019 12:54 Notice Type: Patient Choice Letter Notice Delivered To: Patient Relationship to Patient: Asset Management Analyst Name: Delivery Method: HAND - Hand Delivered Floresita Days: Prior Verbal Notification: Recipient Understood Notice: Yes Recipient Signature: Yes Med Rec Note Co-signed by Attending: Coverage Notice Comment: [facility] for [facility] Last DP export: 02/12/19 11:57 am Patient Name: NAYAN TATUM Page 14206 at 1514 All edits/amendments must be made on the electronic document DICTATION DATE: 02/12/191512 PSYCHIATRIC REGISTERED NURSE: KIRAN 02/12/191512 RPT#: [id number] DC DATE: STATUS: ADM IN [facility] [address] [place] [address] END OF REPORT
--- NOTE | 2019-02-12 15:50 | NUR ---
OT NOTE: PT PERFORMED WELL TODAY. MANY REQUESTS PER PT WHILE THERAPY IN ROOM. BED MOB WITH MIN ASSIST. SOB AND REQUIRED SEVERAL MIN SITTING ON EOB TO RECOUP. ABLE TO AMB SEVERAL FEET FORWARDS AND BACKWARDS X 3 TRIALS, THEN ABLE TO AMB A FEW STEPS TO CHAIR. VERY FATIGUED FOLLOWING THIS TASK. ABLE TO USE URINAL WITHOUT ASSIST. SIMPLE GROOMING WITH SET UP. PT REQUESTING TO PLACE BEDPAN CLOSE TO HIM. EXPLAINED TO PT THAT NOW THAT HE IS MOBILE, HE CAN USE BS COMMODE VS BEDPAN. PT HAPPY WITH THIS. FINALLY FOUND BS COMODE AND PLACED IN PTS ROOM. AGAIN, PT VERY APPRECIATIVE. PERFORMED SIT TO STAND FROM CHAIR X 3 TRIALS FOR TRICEP STRENGTHENING. MICHAEL MORLEY, OTR/L
--- NOTE | 2019-02-12 16:47 | MORECARE ---
CASE MANAGEMENT DISCHARGE SUMMARY PATIENT: NAYAN TATUM UNIT: [id number] ADM DATE: 02/03/19 AGE: 78 : 39 SEX: M ROOM/BED: D.2225 AUTHOR: JOSE,DOC PHYSICIAN: REFERRING PHYSICIAN: MARVIN OLIVIA MD DATE OF SERVICE: 02/12/19 Discharge Plan Patient Name: NAYAN TATUM Facility: [facility]:[place] : 1940 Planned Disposition: Anticipated Discharge Date: Discharge Date: Expected LOS: Initial Reviewer: [id number] Initial Review Date: 02/05/2019 Generated: 02/12/19 5:47 pm Comments DCP- Discharge Planning Updated by [id number]: Bonnie Ramirez on 02/12/19 2:[address] CM called [facility] and spoke to Tamie. I gave her Arlin's number with the patient's insurance. Arlin states she can speed up the process for SNF authorization #[id number]. CM will continue to follow and assist with discharge planning/needs. DCP- Discharge Planning Updated by [id number]: Bonnie Ramirez on 02/12/19 11:[address] He has been denied inpatient rehab by [employer] after peer 2 peer. I informed the patient, he would like to go to [facility], [facility] form signed. I called and spoke to Bessie and clinical faxed to [facility]. CM will continue to follow and assist with discharge planning/needs. DCP- Discharge Planning Updated by [id number]: Bessie Loja on 02/03/19 4:[address] Patient Name: NAYAN TATUM Admission Status: ER Accout number: [id number] Admission Date: 02-03-2019 : 1940 Admission Diagnosis: Attending: MARVIN MANUEL Current LOS: 1 Anticipated DC Date: Planned Disposition: Primary Insurance: [employer] PPO Discharge Planning Comments: CM met with patient, his great niece/POA Jyotsnayessenia Verdin, and Janelle Verdin, niece, to complete initial dc planning assessment. CM educated patient on the CM role and verbal consent given by patient to complete assessment. Patient lives at home alone. Patient currently has [facility] and wishes to resume at discharge if he is able to return home. HERSON form signed by patient's POA for resumption of [facility] or [facility] SCREW ASSEMBL[facility] or [facility]. Signed form placed in chart and signed form given to patient. At discharge patient plans to return home if he is able if not he will want to go to rehab at either [facility] or [facility] and feels this is a safe discharge. Patient's POA denied further known discharge needs at this time. Patient's niece will transport him home if dc to home. CM will continue to follow and will assist as needed with dc plans/needs. Car Designer: Bessie Loja DCPIA - Discharge Planning Initial Assessment Updated by [id number]: Bessie Loja on 02/03/19 5:07 pm * Is the patient Alert and Oriented? Yes * How many steps to enter\exit or inside your home? None * PCP Dr. Sands * Pharmacy [facility] * Preadmission Environment Home Alone * ADLs Independent * Equipment Cane Oxygen Rolling Walker * Other Equipment [facility] is O2 provider. Patient does not have portable. * List name and contact numbers for known caregivers / representatives who currently or will assist patient after discharge: Jyotsna Lambert BRIDGES /alyson crook - [phone] Janelle crook - [phone] * Verbal permission to speak to the caregivers and representatives has been obtained from the patient. Yes * Community resources currently utilized Home Health * Please name any agencies selected above. [facility]. * Additional services required to return to the preadmission environment? Yes * Can the patient safely return to the preadmission environment? Yes * Has this patient been hospitalized within the prior 30 days at any hospital? Yes External Providers External Provider: [facility] Next Contact Date: Service Request Date: Service Type: Resolution: Reviewer: Comments: Coverage Notice Reviewer: [id number] Darren Ramirez Notice Issued Date-Time: 02/11/2019 14:28 Notice Type: IM Discharge Notice Notice Delivered To: Patient Relationship to Patient: Self Guest Services Officer Name: Delivery Method: HAND - Hand Delivered Floresita Days: Prior Verbal Notification: Recipient Understood Notice: Yes Recipient Signature: Yes Med Rec Note Co-signed by Attending: Coverage Notice Comment: IMM explained, signed, given, copy placed in MR Reviewer: [id number] - Bonnie James Notice Issued Date-Time: 02/12/2019 12:54 Notice Type: Patient Choice Letter Notice Delivered To: Patient Relationship to Patient: Guest Services Officer Name: Delivery Method: HAND - Hand Delivered Floresita Days: Prior Verbal Notification: Recipient Understood Notice: Yes Recipient Signature: Yes Med Rec Note Co-signed by Attending: Coverage Notice Comment: [facility] for [facility] Last DP export: 02/12/19 2:13 pm Patient Name: NAYAN TATUM Page 05116 at 1647 All edits/amendments must be made on the electronic document DICTATION DATE: 02/12/191646 BURIAL NEEDS SALESPERSON: KIRAN 02/12/191646 RPT#: [id number] DC DATE: STATUS: ADM IN [facility] [address] [place] [address] END OF REPORT
--- NOTE | 2019-02-12 16:57 | MORECARE ---
CASE MANAGEMENT DISCHARGE SUMMARY PATIENT: NAYAN TATUM UNIT: [id number] ADM DATE: 02/03/19 AGE: 78 : 39 SEX: M ROOM/BED: D.2225 AUTHOR: JOSE,DOC PHYSICIAN: REFERRING PHYSICIAN: MARVIN OLIVIA MD DATE OF SERVICE: 02/12/19 Discharge Plan Patient Name: NAYAN TATUM Facility: [facility]:[place] : 1940 Planned Disposition: Anticipated Discharge Date: Discharge Date: Expected LOS: Initial Reviewer: [email or web address] Initial Review Date: 02/05/2019 Generated: 02/12/19 5:57 pm Comments DCP- Discharge Planning Updated by [id number]: Bonnie James on 02/12/19 3:[address] [facility] and states that he is out of Network and they will be unable to accept him. I called Arlin with [facility] at [phone] and she told me [facility] in Network. Arlin also states that in and out of network pays the same for fci. I spoke with the patient and he would like a referral to [facility]. I called and spoke to [place] at [facility] and clinical faxed. CM will continue to follow and assist with discharge planning/needs. DCP- Discharge Planning Updated by [id number]: Bonnie Ramirez on 02/12/19 2:[address] CM called [facility] and spoke to Tamie. I gave her Arlin's number with the patient's insurance. Arlin states she can speed up the process for SNF authorization #[id number]. CM will continue to follow and assist with discharge planning/needs. DCP- Discharge Planning Updated by [email or web address]: Bonnie James on 02/12/19 11:[address] He has been denied inpatient rehab by [employer] after peer 2 peer. I informed the patient, he would like to go to [facility], [facility] form signed. I called and spoke to Bessie and clinical faxed to [facility]. CM will continue to follow and assist with discharge planning/needs. DCP- Discharge Planning Updated by [id number]: Bessie Loja on 02/03/19 4:[address] Patient Name: NAYAN TATUM Admission Status: ER Accout number: [id number] Admission Date: 02-03-2019 : 1940 Admission Diagnosis: Attending: MARVIN MANUEL Current LOS: 1 Anticipated DC Date: Planned Disposition: Primary Insurance: [employer] PPO Discharge Planning Comments: CM met with patient, his great niece/POA Jyotsan Verdin, and ambreen Mota, to complete initial dc planning assessment. CM educated patient on the CM role and verbal consent given by patient to complete assessment. Patient lives at home alone. Patient currently has [facility] and wishes to resume at discharge if he is able to return home. HERSON form signed by patient's POA for resumption of [facility] or [facility]UN[facility] TECHNICAL WR[facility] or [facility]. Signed form placed in chart and signed form given to patient. At discharge patient plans to return home if he is able if not he will want to go to rehab at either [facility] or [facility] and feels this is a safe discharge. Patient's POA denied further known discharge needs at this time. Patient's niece will transport him home if dc to home. CM will continue to follow and will assist as needed with dc plans/needs. Paper Conservator: Bessie Loja DCPIA - Discharge Planning Initial Assessment Updated by [email or web address]: Bessie Loja on 02/03/19 5:07 pm * Is the patient Alert and Oriented? Yes * How many steps to enter\exit or inside your home? None * PCP Dr. Sands * Pharmacy [facility] * Preadmission Environment Home Alone * ADLs Independent * Equipment Cane Oxygen Rolling Walker * Other Equipment [employer] is O2 provider. Patient does not have portable. * List name and contact numbers for known caregivers / representatives who currently or will assist patient after discharge: Jyotsna Verdin - POA /alyson niece - [phone] Janelle crook - [phone] * Verbal permission to speak to the caregivers and representatives has been obtained from the patient. Yes * Community resources currently utilized Home Health * Please name any agencies selected above. [facility]. * Additional services required to return to the preadmission environment? Yes * Can the patient safely return to the preadmission environment? Yes * Has this patient been hospitalized within the prior 30 days at any hospital? Yes Coverage Notice Reviewer: [id number] Darren Ramirez Notice Issued Date-Time: 02/11/2019 14:28 Notice Type: IM Discharge Notice Notice Delivered To: Patient Relationship to Patient: Self Food Inspector Name: Delivery Method: HAND - Hand Delivered Floresita Days: Prior Verbal Notification: Recipient Understood Notice: Yes Recipient Signature: Yes Med Rec Note Co-signed by Attending: Coverage Notice Comment: IMM explained, signed, given, copy placed in MR Reviewer: [id number] Darren Ramirez Notice Issued Date-Time: 02/12/2019 12:54 Notice Type: Patient Choice Letter Notice Delivered To: Patient Relationship to Patient: Food Inspector Name: Delivery Method: HAND - Hand Delivered Floresita Days: Prior Verbal Notification: Recipient Understood Notice: Yes Recipient Signature: Yes Med Rec Note Co-signed by Attending: Coverage Notice Comment: [facility] Last DP export: 02/12/19 3:47 pm Patient Name: NAYAN TATUM Page 87492 at 1657 All edits/amendments must be made on the electronic document DICTATION DATE: 02/12/191656 OTOLARYNGOLOGY REP: KIRAN 02/12/191656 RPT#: [id number] DC DATE: STATUS: ADM IN [facility] [address] [place] [address] END OF REPORT
--- NOTE | 2019-02-12 17:07 | MORECARE ---
CASE MANAGEMENT DISCHARGE SUMMARY PATIENT: NAYAN TATUM UNIT: [id number] ADM DATE: 02/03/19 AGE: 78 : 39 SEX: M ROOM/BED: D.2225 AUTHOR: JOSE,DOC PHYSICIAN: REFERRING PHYSICIAN: MARVIN OLIVIA MD DATE OF SERVICE: 02/12/19 Discharge Plan Patient Name: NAYAN TATUM Facility: [facility]:[place] : 1940 Planned Disposition: Anticipated Discharge Date: Discharge Date: Expected LOS: Initial Reviewer: [email or web address] Initial Review Date: 02/05/2019 Generated: 02/12/19 6:07 pm Comments DCP- Discharge Planning Updated by [id number]: Bonnie Ramirez on 02/12/19 4:[address] Patient updated per his request. I will f/u in the morning on the referral to [facility]. CM will continue to follow and assist with discharge planning/needs. DCP- Discharge Planning Updated by [id number]: Bonnie Ramirez on 02/12/19 3:[address] [facility] called and states that he is out of Network and they will be unable to accept him. I called Arlin with [facility] at [phone] and she told me [facility], [facility] and [facility] are in Network. Arlin also states that in and out of network pays the same for long term. I spoke with the patient and he would like a referral to [facility]. I called and spoke to [place] at [facility] and clinical faxed. CM will continue to follow and assist with discharge planning/needs. DCP- Discharge Planning Updated by [id number]: Bonnie Ramirez on 02/12/19 2:[address] CM called [facility] and spoke to Tamie. I gave her Arlin's number with the patient's insurance. Arlin states she can speed up the process for SNF authorization #[id number]. CM will continue to follow and assist with discharge planning/needs. DCP- Discharge Planning Updated by [email or web address]: Bonnie Ramirez on 02/12/19 11:[address] He has been denied inpatient rehab by [employer] after peer 2 peer. I informed the patient, he would like to go to [facility], [place] form signed. I called and spoke to Bessie and clinical faxed to [facility]. CM will continue to follow and assist with discharge planning/needs. DCP- Discharge Planning Updated by [id number]: Bessie Loja on 02/03/19 4:[address] Patient Name: NAYAN TATUM Admission Status: ER Accout number: [id number] Admission Date: 02-03-2019 : 1940 Admission Diagnosis: Attending: MARVIN MANUEL Current LOS: 1 Anticipated DC Date: Planned Disposition: Primary Insurance: [employer] PPO Discharge Planning Comments: CM met with patient, his great niece/POA Jyotsna Verdin, and ambreen Mota, to complete initial dc planning assessment. CM educated patient on the CM role and verbal consent given by patient to complete assessment. Patient lives at home alone. Patient currently has [facility] and wishes to resume at discharge if he is able to return home. [place] form signed by patient's POA for resumption of [facility] or [facility] or [facility]. Signed form placed in chart and signed form given to patient. At discharge patient plans to return home if he is able if not he will want to go to rehab at either [facility] or [facility] and feels this is a safe discharge. Patient's POA denied further known discharge needs at this time. Patient's niece will transport him home if dc to home. CM will continue to follow and will assist as needed with dc plans/needs. Press Maintainer: Bessie Loja DCPIA - Discharge Planning Initial Assessment Updated by [email or web address]: Bessie Loja on 02/03/19 5:07 pm * Is the patient Alert and Oriented? Yes * How many steps to enter\exit or inside your home? None * PCP Dr. Sands * Pharmacy [facility] * Preadmission Environment Home Alone * ADLs Independent * Equipment Cane Oxygen Rolling Walker * Other Equipment [facility] is O2 provider. Patient does not have portable. * List name and contact numbers for known caregivers / representatives who currently or will assist patient after discharge: Jyotsna Verdin - POA /great niece - [phone] [facility]din [facility] - [phone] * Verbal permission to speak to the caregivers and representatives has been obtained from the patient. Yes * Community resources currently utilized Home Health * Please name any agencies selected above. [facility]. * Additional services required to return to the preadmission environment? Yes * Can the patient safely return to the preadmission environment? Yes * Has this patient been hospitalized within the prior 30 days at any hospital? Yes Coverage Notice Reviewer: [id number] Ramirez Notice Issued Date-Time: 02/11/2019 14:28 Notice Type: IM Discharge Notice Notice Delivered To: Patient Relationship to Patient: Self Maintenance Department Manager Name: Delivery Method: HAND - Hand Delivered Floresita Days: Prior Verbal Notification: Recipient Understood Notice: Yes Recipient Signature: Yes Med Rec Note Co-signed by Attending: Coverage Notice Comment: IMM explained, signed, given, copy placed in MR Reviewer: [id number] Ramirez Notice Issued Date-Time: 02/12/2019 12:54 Notice Type: Patient Choice Letter Notice Delivered To: Patient Relationship to Patient: Maintenance Department Manager Name: Delivery Method: HAND - Hand Delivered Floresita Days: Prior Verbal Notification: Recipient Understood Notice: Yes Recipient Signature: Yes Med Rec Note Co-signed by Attending: Coverage Notice Comment: [facility] for [facility] Last DP export: 02/12/19 3:57 pm Patient Name: NAYAN TATUM Page 34897 at 1707 All edits/amendments must be made on the electronic document DICTATION DATE: 02/12/191706 TRANSPORTATION PLANNER: KIRAN 02/12/191706 RPT#: [id number] DC DATE: STATUS: ADM IN [facility] [address] [place] [address] END OF REPORT
[2019-02-13 00:30] VITALS: BP 102/56
[2019-02-13 04:30] VITALS: BP 108/59
--- NOTE | 2019-02-13 07:25 | NUR ---
PT RESTING IN BED. NO ACUTE DISTRESS NOTED. O2@2LNC IN PLACE. DENIES PAIN AT THIS TIME. MIDLINE TO LEFT UPPER ARM SALINE LOC'D. SITE WITHOUT REDNESS OR EDEMA. EASILY FLUSHES. DENIES FURTHER NEEDS AT THIS TIME. CL WITHIN REACH. ENCOURAGED TO CALL WITH NEEDS. CONTINUE POC
[2019-02-13 09:14] VITALS: BP 98/54
--- NOTE | 2019-02-13 11:02 | NUR ---
NUTRITION F/U PT REMAINS IN ISOLATION. TOLERATING REG DIET WITH 100% INTAKE RECENT MEALS. WILL CONTINUE TO PROVIDE DIET, HONOR FOOD PREFERENCES. RD FOLLOWING
[2019-02-13 12:17] VITALS: BP 106/57
--- NOTE | 2019-02-13 12:19 | NUR ---
OT NOTE: PT PERFORMED WELL TODAY. BED MOB WITH MIN / MOD ASSIST. SITTING ON EOB WITHOUT SUPPORT. ABLE TO AMB APPROX 8-10 FT IN ROOM WITH RW AND VERBAL CUES TO KEEP SHOULDERS UP DURING AMB. TRANSFER TRAINING WITH MIN ASSIST WITH USE OF WALKER. PROVIDED EVERYTHING PT NEEDED IN ORDER TO SIT UP FOR EXTENDED TIME. SET UP FOR GROOMING TASKS; MIN ASSIST FOR UE DRESSING. MICHAEL MORLEY, OTR/L
--- NOTE | 2019-02-13 12:54 | MORECARE ---
CASE MANAGEMENT DISCHARGE SUMMARY PATIENT: NAYAN TATUM UNIT: [id number] ADM DATE: 02/03/19 AGE: 78 : 39 SEX: M ROOM/BED: D.2225 AUTHOR: JOSE,DOC PHYSICIAN: REFERRING PHYSICIAN: MARVIN OLIVIA MD DATE OF SERVICE: 02/13/19 Discharge Plan Patient Name: NAYAN TATUM Facility: [facility]:[place] : 1940 Planned Disposition: Anticipated Discharge Date: Discharge Date: Expected LOS: Initial Reviewer: [id number] Initial Review Date: 02/05/2019 Generated: 02/13/19 1:54 pm Comments DCP- Discharge Planning Updated by [email or web address]: Bonnie Ramirez on 02/13/19 11:[address] Updated clinical sent to [facility]. Left a message with Georgia to call me back concerning admit. CM will continue to follow and assist with discharge planning/needs. DCP- Discharge Planning Updated by [id number]: Bonnie Ramirez on 02/12/19 4:[address] Patient updated per his request. I will f/u in the morning on the referral to [facility]. CM will continue to follow and assist with discharge planning/needs. DCP- Discharge Planning Updated by [id number]: Bonnie Ramirez on 02/12/19 3:[address] [facility] called and states that he is out of Network and they will be unable to accept him. I called Arlin with [facility] at [phone] and she told me [facility], [facility] and [facility] are in Network. Arlin also states that in and out of network [place] the same for [facility]. I spoke with the patient and he would like a referral to [facility]. I called and spoke to [place] at [facility] and clinical faxed. CM will continue to follow and assist with discharge planning/needs. DCP- Discharge Planning Updated by [email or web address]: Bonnie Ramirez on 02/12/19 2:[address] CM [facility] and spoke to Tamie. I gave her Arlin's number with the patient's insurance. Arlin states she can speed up the process for SNF authorization #[id number]. CM will continue to follow and assist with discharge planning/needs. DCP- Discharge Planning Updated by [email or web address]: Bonnie Ramirez on 02/12/19 11:[address] He has been denied inpatient rehab by [employer] after peer 2 peer. I informed the patient, he would like to go to [facility], [place] form signed. I called and spoke to Bessie and clinical faxed to [facility]. CM will continue to follow and assist with discharge planning/needs. DCP- Discharge Planning Updated by [id number]: Bessie Loja on 02/03/19 4:[address] Patient Name: NAYAN TATUM Admission Status: ER Accout number: [id number] Admission Date: 02-03-2019 : 1940 Admission Diagnosis: Attending: MARVIN MANUEL Current LOS: 1 Anticipated DC Date: Planned Disposition: Primary Insurance: [employer] PPO Discharge Planning Comments: CM met with patient, his great niece/POA Jyotsna Verdin, and ambreen Mota, to complete initial dc planning assessment. CM educated patient on the CM role and verbal consent given by patient to complete assessment. Patient lives at home alone. Patient currently has [facility] and wishes to resume at discharge if he is able to return home. [place] form signed by patient's POA for resumption of [facility] or [facility] or [facility]. Signed form placed in chart and signed form given to patient. At discharge patient plans to return home if he is able if not he will want to go to rehab at either [facility] or [facility] and feels this is a safe discharge. Patient's POA denied further known discharge needs at this time. Patient's niece will transport him home if dc to home. CM will continue to follow and will assist as needed with dc plans/needs. Professor Of Communication: Bessie Loja DCPIA - Discharge Planning Initial Assessment Updated by [id number]: Bessie Loja on 02/03/19 5:07 pm * Is the patient Alert and Oriented? Yes * How many steps to enter\exit or inside your home? None * PCP Dr. Sands * Pharmacy [facility] * Preadmission Environment Home Alone * ADLs Independent * Equipment Cane Oxygen Rolling Walker * Other Equipment [facility] is O2 provider. Patient does not have portable. * List name and contact numbers for known caregivers / representatives who currently or will assist patient after discharge: Jyotsna crook - [phone] Janelle crook - [phone] * Verbal permission to speak to the caregivers and representatives has been obtained from the patient. Yes * Community resources currently utilized Home Health * Please name any agencies selected above. [facility]. * Additional services required to return to the preadmission environment? Yes * Can the patient safely return to the preadmission environment? Yes * Has this patient been hospitalized within the prior 30 days at any hospital? Yes Coverage Notice Reviewer: [id number] Ramirez Notice Issued Date-Time: 02/11/2019 14:28 Notice Type: IM Discharge Notice Notice Delivered To: Patient Relationship to Patient: Self Sand Bobber Name: Delivery Method: HAND - Hand Delivered Floresita Days: Prior Verbal Notification: Recipient Understood Notice: Yes Recipient Signature: Yes Med Rec Note Co-signed by Attending: Coverage Notice Comment: IMM explained, signed, given, copy placed in MR Reviewer: [id number] Darren Ramirez Notice Issued Date-Time: 02/12/2019 12:54 Notice Type: Patient Choice Letter Notice Delivered To: Patient Relationship to Patient: Sand Bobber Name: Delivery Method: HAND - Hand Delivered Floresita Days: Prior Verbal Notification: Recipient Understood Notice: Yes Recipient Signature: Yes Med Rec Note Co-signed by Attending: Coverage Notice Comment: [facility] for [facility] Last DP export: 02/12/19 4:07 pm Patient Name: NAYAN TATUM Page 70123 at 1254 All edits/amendments must be made on the electronic document DICTATION DATE: 02/13/19 125 6TH GRADE TEACHER: KIRAN 02/13/19 125 RPT#: [id number] DC DATE: STATUS: ADM IN [facility] [address] [place] [address] END OF REPORT
[2019-02-13 16:33] VITALS: BP 96/56
--- NOTE | 2019-02-13 16:34 | NUR ---
OT NOTE: PT COMPLETED BED MOB TASKS WITH MIN/MOD A. PT COMPLETED EOB SITTING BALANCE WITH MIN /MOD A. PT COMPLETED UE AROM AXS AT EOB. PT COMPLETED GROOMING TASK WITH MIN A. THANK YOU, JOSE MARIA GARZA
[2019-02-13 20:02] VITALS: BP 112/56
[2019-02-14] VITALS: BP 142/61
--- NOTE | 2019-02-14 01:18 | NUR ---
RESTING IN BED CALL LIGHT AND WATER IN REACH NO S/S OF DISTRESS
[2019-02-14 04:00] VITALS: BP 98/49
--- NOTE | 2019-02-14 07:15 | NUR ---
REFUSED [facility] THIS AM.
--- NOTE | 2019-02-14 07:20 | NUR ---
PATIENT IN BED WITH IV INTACT. REPOSITIONED IN BED AT THIS TIME. BSCDS PLACED ON PATIENTS LEGS, ON AND WORKING. FALL PRECAUTIONS IN PLACE WITH BED ALARM ON. NO COMPLAINTS OR SIGNS OF DISTRESS. CALL LIGHT WITHIN REACH.
[2019-02-14 08:04] VITALS: BP 114/63
[2019-02-14] MEDS ORDERED: ELIQUIS2.5 MG PO (11:08)
[2019-02-14] MEDS ORDERED: LASIX40 MG PO (11:08)
[2019-02-14] MEDS ORDERED: FLAGYL500 MG PO (11:09)
--- NOTE | 2019-02-14 11:44 | NUR ---
OT NOTE: PT DOING BETTER TODAY. ABLE TO PERFORM SUPINE TO SIT WITH USE OF BED RAIL AND NO PHYSICAL ASSIST FROM THERAPIST. SIT TO STAND WITH MIN ASSIST; AMB IN ROOM APPROX 15 FT WITH GAIT BELT, 02, AND MIN ASSIST. TRANSFERRED TO CHAIR WITH MIN ASSIST. REQUIRED ASSIST WITH DONNING SOCKS DUE TO DIFFICULTY BENDING FORWARD..DOING WELL WITH UPPER BODY ACTIVITIES. STILL DOES NOT HAVE THE ENDURANCE TO PERFORM GROOMING TASKS AT SINK, BUT IS ABLE TO PERFORM WITH BEDSIDE TABLE. PT IS VERY MOTIVATED TO IMPROVE AND WILL BENEFIT FROM REHAB TO IMPROVE STRENGTH AND ENDURANCE, HE WANTS TO RETURN BACK HOME TO INDEP LIVING, BUT IS UNSAFE AT THIS TIME. MICHAEL MORLEY, OTR/L
--- NOTE | 2019-02-14 11:47 | MORECARE ---
CASE MANAGEMENT DISCHARGE SUMMARY PATIENT: NAYAN TATUM UNIT: [id number] ADM DATE: 02/03/19 AGE: 78 : 39 SEX: M ROOM/BED: D.2225 AUTHOR: JOSE,DOC PHYSICIAN: REFERRING PHYSICIAN: MARVIN OLIVIA MD DATE OF SERVICE: 02/14/19 Discharge Plan Patient Name: NAYAN TATUM Facility: [facility]:[place] : 1940 Planned Disposition: Anticipated Discharge Date: Discharge Date: Expected LOS: Initial Reviewer: [id number] Initial Review Date: 02/05/2019 Generated: 02/14/19 12:47 pm Comments DCP- Discharge Planning Updated by [email or web address]: Bonnie Ramirez on 02/14/19 10:[address] Patient Name: NAYAN TATUM Admission Status: ER Accout number: [id number] Admission Date: 02-03-2019 : 1940 Admission Diagnosis:UNIL INGUINAL HERNIA, W OBST, W/O GANGR, NOT SPCF RE Attending: MARVIN MANUEL Current LOS: 11 Anticipated DC Date: Planned Disposition: Primary Insurance: [employer] MED[employer]ARE PPO or HMO Discharge Planning Comments: Syl from [facility] states patient has been accepted. Discharge orders received, DC summary, med list, order and MAR faxed to [facility]. They state they will call back with a machine operator picker time. I informed them again that he has oxygen and also isolation for CDT. Discharging today to a skilled bed at [facility]. CM will continue to follow and assist with discharge planning/needs. Call Taker: Bonnie Ramirez DCP- Discharge Planning Updated by [id number]: Bonnie Ramirez on 02/13/19 11:[address] Updated clinical sent to [facility]. Left a message with [place] to call me back concerning admit. CM will continue to follow and assist with discharge planning/needs. DCP- Discharge Planning Updated by [id number]: Bonnie Ramirez on 02/12/19 4:[address] Patient updated per his request. I will f/u in the morning on the referral to [facility]. CM will continue to follow and assist with discharge planning/needs. DCP- Discharge Planning Updated by [id number]: Bonnie Ramirez on 02/12/19 3:[address] Tamie with [facility] called and states that he is out of Network and they will be unable to accept him. I called Arlin with [facility] at [phone] and she told me [facility], [facility] and [facility] are in Network. Arlin also states that in and out of network pays the same for group home. I spoke with the patient and he would like a referral to [facility]. I called and spoke to [place] at [facility] and clinical faxed. CM will continue to follow and assist with discharge planning/needs. DCP- Discharge Planning Updated by [email or web address]: Bonnie Ramirez on 02/12/19 2:[address] CM called [facility] and spoke to Tamie. I gave her Arlin's number with the patient's insurance. Arlin states she can speed up the process for SNF authorization #[id number]. CM will continue to follow and assist with discharge planning/needs. DCP- Discharge Planning Updated by [id number]: Bonnie Ramirez on 02/12/19 11:[address] He has been denied inpatient rehab by [facility] after peer 2 peer. I informed the patient, he would like to go to [facility] [place] form signed. I called and spoke to Bessie and clinical faxed to [facility]. CM will continue to follow and assist with discharge planning/needs. DCP- Discharge Planning Updated by [id number]: Bessie Loja on 02/03/19 4:[address] Patient Name: NAYAN TATUM Admission Status: ER Accout number: [id number] Admission Date: 02-03-2019 : 1940 Admission Diagnosis: Attending: MARVIN MANUEL Current LOS: 1 Anticipated DC Date: Planned Disposition: Primary Insurance: [employer] PPO Discharge Planning Comments: CM met with patient, his great niece/POA Jyotsna Verdin, and Janelle Verdin, niece, to complete initial dc planning assessment. CM educated patient on the CM role and verbal consent given by patient to complete assessment. Patient lives at home alone. Patient currently has [facility] and wishes to resume at discharge if he is able to return home. [place] form signed by patient's POA for resumption of [facility] or [facility] or [facility]. Signed form placed in chart and signed form given to patient. At discharge patient plans to return home if he is able if not he will want to go to rehab at either [facility] or [facility] and feels this is a safe discharge. Patient's POA denied further known discharge needs at this time. Patient's niece will transport him home if dc to home. CM will continue to follow and will assist as needed with dc plans/needs. Call Taker: Bessie Loja DCPIA - Discharge Planning Initial Assessment Updated by [id number]: Bessie Loja on 02/03/19 5:07 pm * Is the patient Alert and Oriented? Yes * How many steps to enter\exit or inside your home? None * PCP Dr. Sands * Pharmacy [facility] * Preadmission Environment Home Alone * ADLs Independent * Equipment Cane Oxygen Rolling Walker * Other Equipment [facility] is O2 provider. Patient does not have portable. * List name and contact numbers for known caregivers / representatives who currently or will assist patient after discharge: Jyotsna Lambert BRIDGES /alyson crook - [phone] Janelle Verdin ambreen - [phone] * Verbal permission to speak to the caregivers and representatives has been obtained from the patient. Yes * Community resources currently utilized Home Health * Please name any agencies selected above. [facility]. * Additional services required to return to the preadmission environment? Yes * Can the patient safely return to the preadmission environment? Yes * Has this patient been hospitalized within the prior 30 days at any hospital? Yes Coverage Notice Reviewer: [id number] Darren Ramirez Notice Issued Date-Time: 02/11/2019 14:28 Notice Type: IM Discharge Notice Notice Delivered To: Patient Relationship to Patient: Self High School History Teacher Name: Delivery Method: HAND - Hand Delivered Floresita Days: Prior Verbal Notification: Recipient Understood Notice: Yes Recipient Signature: Yes Med Rec Note Co-signed by Attending: Coverage Notice Comment: IMM explained, signed, given, copy placed in MR Reviewer: [id number] Darren Ramirez Notice Issued Date-Time: 02/12/2019 12:54 Notice Type: Patient Choice Letter Notice Delivered To: Patient Relationship to Patient: High School History Teacher Name: Delivery Method: HAND - Hand Delivered Floresita Days: Prior Verbal Notification: Recipient Understood Notice: Yes Recipient Signature: Yes Med Rec Note Co-signed by Attending: Coverage Notice Comment: [facility] for [facility] Reviewer: [id number] Darren Ramirez Notice Issued Date-Time: 02/14/2019 10:51 Notice Type: IM Discharge Notice Notice Delivered To: Patient Relationship to Patient: Self High School History Teacher Name: Delivery Method: HAND - Hand Delivered Floresita Days: Prior Verbal Notification: Recipient Understood Notice: Yes Recipient Signature: Yes Med Rec Note Co-signed by Attending: Coverage Notice Comment: IMM explained, signed, given, copy placed in MR Last DP export: 02/13/19 11:54 am Patient Name: NAYAN TATUM Page 84616 at 1147 All edits/amendments must be made on the electronic document DICTATION DATE: 02/14/19 1147 TIN CAN LABORER: KIRAN 02/14/19 1147 RPT#: [id number] DC DATE: STATUS: ADM IN [facility] [address] [place] [address] END OF REPORT
--- NOTE | 2019-02-14 12:30 | NUR ---
PATIENT SITTING UP IN CHAIR AT THIS TIME. IV INTACT. NO COMPLAINTS, CALL LIGHT WITHIN REACH.
--- NOTE | 2019-02-14 12:40 | NUR ---
REPORT CALLED TO NURSE AT [facility]. PATIENT SITTING UP IN CHAIR EATING LUNCH. TRANSPORTATION TO [facility] TO BE HERE AT 1300.
[2019-02-14 13:09] VITALS: BP 120/74
--- NOTE | 2019-02-14 13:10 | NUR ---
MIDLINE REMOVED FROM LEFT UPPER ARM. PATIENT TOLERATED WITH SMALL AMOUNT OF PAIN. DC INSTRUCTIONS GIVEN TO PATIENT. GETTING DRESSED ASSISTED BY TRADING SPECIALIST. [facility] HERE TO TAKE PATIENT.
== END 2019-02-14 14:46 | DRG 853 ==
LOC: D.ER 11:47 → D.ICU 16:30 → D.EDHOLD 16:30 → D.MS 16:30 → D.EDHOLD 17:29 → D.M2 17:46 → D.EDHOLD 17:46 → D.ICU 23:05 → D.MS 02-08 16:18
PROVIDERS: Family Medicine; Internal Medicine Nephrology; Surgery; ADMIT Family Medicine Adult Medicine; ATTEND Family Medicine Adult Medicine
PROC: 0YU60JZ Supplement Left Inguinal Region with Synthetic Substitute, Open Approach (ICD-10-PCS; principal; 2019-02-03 17:15)
PROC: 0DTJ0ZZ Resection of Appendix, Open Approach (ICD-10-PCS; 2019-02-03 17:15)
PROC: 5A1945Z Respiratory Ventilation, 24-96 Consecutive Hours (ICD-10-PCS; 2019-02-03 17:15)
PROC: 0BH17EZ Insertion of Endotracheal Airway into Trachea, Via Natural or Artificial Opening (ICD-10-PCS; 2019-02-03 17:15)
PROC: 05HM33Z Insertion of Infusion Device into Right Internal Jugular Vein, Percutaneous Approach (ICD-10-PCS; 2019-02-04)
DX: A41.9 Sepsis, unspecified organism (principal); R65.21 Severe sepsis with septic shock; E43 Unspecified severe protein-calorie malnutrition; K40.30 Unilateral inguinal hernia, with obstruction, without gangrene, not specified as recurrent; I48.92 Unspecified atrial flutter; N17.9 Acute kidney failure, unspecified; I13.0 Hypertensive heart and chronic kidney disease with heart failure and stage 1 through stage 4 chronic kidney disease, or unspecified chronic kidney disease; I50.32 Chronic diastolic (congestive) heart failure; A04.72 Enterocolitis due to Clostridium difficile, not specified as recurrent; K43.2 Incisional hernia without obstruction or gangrene; I10 Essential (primary) hypertension; R11.2 Nausea with vomiting, unspecified; N18.9 Chronic kidney disease, unspecified; G47.33 Obstructive sleep apnea (adult) (pediatric); M10.9 Gout, unspecified; I95.9 Hypotension, unspecified; K21.9 Gastro-esophageal reflux disease without esophagitis

== ENCOUNTER 2019-03-12 08:59 | Outpatient (CLI) | payer MEDICARE ==
[~2019-03-12] VITALS: Ht 175.3 cm; Wt 89.5 kg
[~2019-03-12 08:59] MED LIST changes: +ELIQUIS2.5 MG PO; +FLAGYL500 MG PO; +ZYLOPRIM100 MG
[2019-03-12 10:18] VITALS: Ht 175.3 cm; Wt 89.5 kg
== END 2019-03-12 14:30 | disposition home or self-care (01) ==
LOC: D.OPS 08:59
PROVIDERS: ATTEND Family Medicine
DX: D64.9 Anemia, unspecified (principal)

== ENCOUNTER 2019-07-01 07:29 | Outpatient (CLI) | payer MEDICARE ==
--- NOTE | 2019-06-30 13:08 | NUR ---
TRIED TO CALL PATIENT NO ANSWER.
[~2019-07-01] VITALS: Ht 172.7 cm; Wt 77.7 kg
[2019-07-01 07:55] LABS: BASOPHILS 0 % (0-2); EOSINOPHILS 2.4 % (0-7); HEMATOCRIT 33.3 % (42.0-54.0); HEMOGLOBIN 10.7 g/dL (13.5-17.5); IMMATURE GRANULOCYTES 0.5 % (0-5); LYMPHOCYTES 21.5 % (15-50); MCH 31.1 pg (26.0-34.0); MCHC 32.1 g/dL (31.0-37.0); MCV 96.8 fL (80.0-100.0); MEAN PLATELET VOLUME 10.1 fL (7.4-10.4); MONOCYTES 9.1 % (2-11); NEUTROPHILS 66.5 % (40-80); PLATELET COUNT 213 10x3/uL (130-400); RBC 3.44 10x6/uL (4.20-6.10); RDW 14.2 % (11.5-14.5); WBC 7.6 10x3/uL (4.8-10.8)
[2019-07-01 08:10] LABS: ANION GAP 15.4 mmol/L (8-16); CALCIUM 8.4 mg/dL (8.5-10.1); CARBON DIOXIDE 21.5 mmol/L (21.0-32.0); CREATININE - SERUM 2.8 mg/dL (0.6-1.3); POTASSIUM - SERUM 4.9 mmol/L (3.5-5.1)
[2019-07-01 08:11] LABS: INR 0.96 (0.85-1.17); PROTIME 12.3 SECONDS (11.6-15.0)
[2019-07-01 09:19] VITALS: BP 135/70; Ht 172.7 cm; Wt 77.7 kg
--- NOTE | 2019-07-01 12:21 | NUR ---
1215 VITAL SIGNS ARE BEING DOCUMENTED ON POST PROCEDURE FORM AND IS PART OF THE PAPER CHART. PT IS AWARE THAT HE IS STILL NPO UNTIL AFTER CLEARANCE FROM NEXT CXR IN TWO HOURS. PT TO BE INJECTED WITH RADIOPHARMACUTICAL FOR BONE SCAN. [facility] IN NUCLEAR MEDICINE AWARE THAT PT IS BACK IN 2156.
--- NOTE | 2019-07-01 12:49 | NUR ---
1240 PT INJECTED WITH RADIOPHARMICUTICAL DOSE IV FOR BONE SCAN BY GUNNAR. PT TO GO FOR SCAN AT 1500.
--- NOTE | 2019-07-01 13:56 | NUR ---
1355 PCXR DONE AT BEDSIDE. PT DENIES CP. NO INCREASED SOB. MAINTAINING O2 SAT AT PREPROCEDURE BASELINE.
--- NOTE | 2019-07-01 15:07 | NUR ---
1440 PCXR REPORT SHOWS NO EVIDENCE OF PNEUMOTHORAX. PT GIVEN FLUIDS AND REQUESTING JELLO. 1500 PT TO NUCLEAR MEDICINE FOR BONE SCAN VIA STRETCHER.
--- NOTE | 2019-07-01 15:27 | NUR ---
1520 REPORT ON PT GIVEN TO LEONELA GUERRERORN
--- NOTE | 2019-07-01 16:33 | NUR ---
1550 RETURNED TO 2506 BY FROM XRAY. AWAKE DENIES PROBLEMS. IV DC'D WITH CATH INTACT. PT. STATES HE IS READY TO GO HOME. TIME FRAME MET. DC INSTS REVIEWED RELEASED IN , FRIEND ENAMEL BUFFER HOME.
== END 2019-07-01 16:05 | disposition home or self-care (01) ==
LOC: D.SP 07:29
PROVIDERS: Specialist; ATTEND Internal Medicine Pulmonary Disease
DX: R91.8 Other nonspecific abnormal finding of lung field (principal)

== ENCOUNTER 2019-07-30 10:32 | Inpatient (IN) | payer MEDICARE ==
[~2019-07-30] VITALS: Ht 172.7 cm; Wt 72.6 kg
[~2019-07-30 10:32] MED LIST changes: -ZYLOPRIM100 MG; +ZYLOPRIM100 MG PO
[2019-07-30 12:47] VITALS: BP 108/55
[2019-07-30 14:41] LABS: ALBUMIN 2.2 g/dL (3.4-5.0); ALKALINE PHOSPHATASE 84 U/L (46-116); ALT (SGPT) 13 U/L (10-68); BILIRUBIN - TOTAL 0.26 mg/dL (0.2-1.3); CALC OSMOLALITY 292 mosm/kg (275-300); CARBON DIOXIDE 21.2 mmol/L (21.0-32.0); CHLORIDE - SERUM 101 mmol/L (98-107); CREATININE - SERUM 3.6 mg/dL (0.6-1.3); GLUCOSE 90 mg/dL (74-106); PROTEIN - SERUM 4.9 g/dL (6.4-8.2); SODIUM 132 mmol/L (136-145); UREA NITROGEN 90 mg/dL (7-18); eGFR NON AFRICAN AMERICAN 17 mL/min (90-120)
[2019-07-30 14:48] LABS: CALCIUM 5.5 mg/dL (8.5-10.1); TROPONIN-I 0.149 ng/mL (0.000-0.060)
[2019-07-30 14:56] LABS: BASOPHILS 0.1 % (0-2); EOSINOPHILS 0.9 % (0-7); HEMATOCRIT 30.2 % (42.0-54.0); HEMOGLOBIN 9.4 g/dL (13.5-17.5); IMMATURE GRANULOCYTES 5.8 % (0-5); MCH 30.4 pg (26.0-34.0); MCHC 31.1 g/dL (31.0-37.0); MCV 97.7 fL (80.0-100.0); MEAN PLATELET VOLUME 12.6 fL (7.4-10.4); MONOCYTES 4.1 % (2-11); NEUTROPHILS 79.1 % (40-80); RBC 3.09 10x6/uL (4.20-6.10); RDW 14.4 % (11.5-14.5); WBC 8.5 10x3/uL (4.8-10.8)
[2019-07-30 15:07] LABS: PLATELET COUNT 50 10x3/uL (130-400)
[2019-07-30 15:56] VITALS: BP 103/50; BMI 24.3
[2019-07-30 15:58] LABS: PLATELET ESTIMATE DECREASED
[2019-07-30] MEDS ORDERED: COLACE100 MG PO (16:04)
[2019-07-30] MEDS ORDERED: ONDANSETRON ODT8 MG PO (16:04)
[2019-07-30] MEDS ORDERED: Magic Mouthwash (16:04)
[2019-07-30 16:16] VITALS: BP 103/58
[2019-07-30 18:35] LABS: APPEARANCE CLEAR (CLEAR); BILIRUBIN NEGATIVE (NEGATIVE); COLOR YELLOW (YELLOW); GLUCOSE NEGATIVE (NEGATIVE); KETONE NEGATIVE (NEGATIVE); NITRITE NEGATIVE (NEGATIVE); PROTEIN TRACE mg/dL (NEGATIVE); RED CELLS - URINE OCC /hpf (0-5); UROBILINOGEN NORMAL (NORMAL); WHITE CELLS - URINE OCC /hpf (NEGATIVE)
[2019-07-30 20:28] VITALS: BP 95/54
[2019-07-31 01:16] VITALS: BP 100/49
[2019-07-31 04:54] VITALS: BP 104/45
[2019-07-31 06:11] LABS: BASOPHILS 0.1 % (0-2); EOSINOPHILS 0.9 % (0-7); HEMOGLOBIN 9.2 g/dL (13.5-17.5); IMMATURE GRANULOCYTES 1.4 % (0-5); LYMPHOCYTES 5.9 % (15-50); MCH 30.5 pg (26.0-34.0); MCHC 30.7 g/dL (31.0-37.0); MCV 99.3 fL (80.0-100.0); MEAN PLATELET VOLUME 12.4 fL (7.4-10.4); MONOCYTES 6.5 % (2-11); NEUTROPHILS 85.2 % (40-80); PLATELET COUNT 52 10x3/uL (130-400); RBC 3.02 10x6/uL (4.20-6.10); RDW 14.7 % (11.5-14.5); WBC 8.9 10x3/uL (4.8-10.8)
[2019-07-31 07:06] LABS: ANION GAP 16.7 mmol/L (8-16); CARBON DIOXIDE 19.1 mmol/L (21.0-32.0); CREATININE - SERUM 3.8 mg/dL (0.6-1.3); POTASSIUM - SERUM 4.8 mmol/L (3.5-5.1)
[2019-07-31 07:17] LABS: CALCIUM 5.6 mg/dL (8.5-10.1)
[2019-07-31 08:48] VITALS: BP 97/52
[2019-07-31 12:21] VITALS: BMI 24.3
[2019-07-31 12:57] VITALS: BP 96/48
[2019-07-31 15:16] VITALS: Ht 172.7 cm; Wt 72.6 kg
--- NOTE | 2019-07-31 15:29 | MORECARE ---
CASE MANAGEMENT DISCHARGE SUMMARY PATIENT: NAYAN TATUM UNIT: [id number] ADM DATE: 07/31/19 AGE: 79 : 39 SEX: M ROOM/BED: D.2215 AUTHOR: KERI GARCIA PHYSICIAN: REFERRING PHYSICIAN: RENEE RAMOS MD DATE OF SERVICE: 07/31/19 Discharge Plan Patient Name: NAYAN TATUM Facility: [facility]:[place] : 1940 Planned Disposition: Hospice Medical Facility Anticipated Discharge Date: Discharge Date: Expected LOS: Initial Reviewer: [id number] Initial Review Date: 07/30/2019 Generated: 07/31/19 4:29 pm DCPIA - Discharge Planning Initial Assessment Updated by [email or web address]: Radha Hicks on 07/31/19 3:28 pm * Is the patient Alert and Oriented? Yes * How many steps to enter\exit or inside your home? * PCP MIGUELANGEL * Pharmacy [facility] * Preadmission Environment Home Alone * ADLs Total Dependent * Equipment Bedside Commode Rolling Walker Walker Wheelchair * Other Equipment CONVERTER * List name and contact numbers for known caregivers / representatives who currently or will assist patient after discharge: JENI ([facility]) [phone] * Verbal permission to speak to the caregivers and representatives has been obtained from the patient. N/A * Community resources currently utilized Home Health * Please name any agencies selected above. [facility] * Additional services required to return to the preadmission environment? Yes * Can the patient safely return to the preadmission environment? No * Has this patient been hospitalized within the prior 30 days at any hospital? No Coverage Notice Reviewer: [email or web address] Darren Hester Notice Issued Date-Time: 07/30/2019 18:15 Notice Type: Medicare Outpatient Observation Notice Notice Delivered To: Patient Relationship to Patient: Self Portfolio Analyst Name: Nayan Tatum Delivery Method: HAND - Hand Delivered Floresita Days: Prior Verbal Notification: Recipient Understood Notice: Yes Recipient Signature: Yes Med Rec Note Co-signed by Attending: Coverage Notice Comment: FRENCH delivered to and signed by patient. Copy placed on chart. Patient Name: NAYAN TATUM Page 20851 at 1529 All edits/amendments must be made on the electronic document DICTATION DATE: 07/31/191528 CARBON FURNACE OPERATOR: KIRAN 07/31/191528 RPT#: [id number] DC DATE: STATUS: ADM IN [facility] [address] [place] [address] END OF REPORT
--- NOTE | 2019-07-31 15:41 | MORECARE ---
CASE MANAGEMENT DISCHARGE SUMMARY PATIENT: NAYAN TATUM UNIT: [id number] ADM DATE: 07/31/19 AGE: 79 : 39 SEX: M ROOM/BED: D.2215 AUTHOR: KERI GARCIA PHYSICIAN: REFERRING PHYSICIAN: RENEE RAMOS MD DATE OF SERVICE: 07/31/19 Discharge Plan Patient Name: NAYAN TATUM Facility: [facility]:[place] : 1940 Planned Disposition: Hospice Medical Facility Anticipated Discharge Date: Discharge Date: Expected LOS: Initial Reviewer: [id number] Initial Review Date: 07/30/2019 Generated: 07/31/19 4:41 pm Comments DCP- Discharge Planning Updated by [id number]: Radha Hicks on 07/31/19 2:[address] Patient Name: NAYAN TATUM Admission Status: ER Accout number: [id number] Admission Date: 07-31-2019 : 1940 Admission Diagnosis: Attending: RENEE RAMOS Current LOS: 1 Anticipated DC Date: Planned Disposition: Hospice Medical Facility Primary Insurance: AETNA MEDICARE PPO or HMO Discharge Planning Comments: CM met with patient to complete initial dc planning assessment. CM educated patient on the CM role and verbal consent given by patient to complete assessment. Patient lives at home where his stays by himself and is unsafe to return there is he is to live by himself. Patient spoke to me at length about wanting hospice and if possible would like to be at home, but unsure if that is possible. He asked that I speak with his niece Jeni, who is his POA. He has a walker, converter, home o2, bsc, wheelchair. At this time he is total care. He is too weak to ambulate. He talked about wanting to with dignity. He asked that I call Jeni & speak with her. I spoke with Jeni at length about hospice and she would like to speak to her family and then also speak with him tomorrow. Spoke about [facility] where he could possibly be inpatient. I will speak with her and the patient again tomorrow. Patient is current with [facility]. CM will continue to follow and will assist as needed with dc plans/needs. Sponsorship Coordinator: Radha Hicks DCPIA - Discharge Planning Initial Assessment Updated by [id number]: Radha Hicks on 07/31/19 3:28 pm * Is the patient Alert and Oriented? Yes * How many steps to enter\exit or inside your home? * PCP MIGUELANGEL * Pharmacy [facility] * Preadmission Environment Home Alone * ADLs Total Dependent * Equipment Bedside Commode Rolling Walker Walker Wheelchair * Other Equipment CONVERTER * List name and contact numbers for known caregivers / representatives who currently or will assist patient after discharge: JENI ([facility]) [phone] * Verbal permission to speak to the caregivers and representatives has been obtained from the patient. N/A * Community resources currently utilized Home Health * Please name any agencies selected above. [facility] * Additional services required to return to the preadmission environment? Yes * Can the patient safely return to the preadmission environment? No * Has this patient been hospitalized within the prior 30 days at any hospital? No Coverage Notice Reviewer: [id number] Darren Hester Notice Issued Date-Time: 07/30/2019 18:15 Notice Type: Medicare Outpatient Observation Notice Notice Delivered To: Patient Relationship to Patient: Self Lens Dotter Name: Nayan Tatum Delivery Method: HAND - Hand Delivered Floresita Days: Prior Verbal Notification: Recipient Understood Notice: Yes Recipient Signature: Yes Med Rec Note Co-signed by Attending: Coverage Notice Comment: FRENCH delivered to and signed by patient. Copy placed on chart. Reviewer: [id number] - Radha Hicks Notice Issued Date-Time: 07/31/2019 14:15 Notice Type: Patient Choice Letter Notice Delivered To: Patient Relationship to Patient: Lens Dotter Name: Delivery Method: - Floresita Days: Prior Verbal Notification: Recipient Understood Notice: Recipient Signature: Med Rec Note Co-signed by Attending: Coverage Notice Comment: Last DP export: 07/31/19 2:29 Patient Name: NAYAN TATUM Page [id number] at 1541 All edits/amendments must be made on the electronic document DICTATION DATE: 07/31/19 1541 DRAWER WAXER: KIRAN 07/31/19 154 RPT#: [id number] DC DATE: STATUS: ADM IN [facility] [address] [place] [address] END OF REPORT
[2019-07-31 16:12] LABS: APPEARANCE CLEAR (CLEAR); BILIRUBIN NEGATIVE (NEGATIVE); COLOR YELLOW (YELLOW); GLUCOSE NEGATIVE (NEGATIVE); KETONE NEGATIVE (NEGATIVE); NITRITE NEGATIVE (NEGATIVE); PROTEIN 1+ mg/dL (NEGATIVE); UROBILINOGEN NORMAL (NORMAL)
[2019-07-31 16:14] LABS: CREATININE - URINE 83.8 mg/dL (30-125); PRO/CRE RATIO URINE 1.2 mg/g; PROTEIN - URINE 101.1 mg/dL (0.0-11.9); WHITE CELLS - URINE 0-5 /hpf (NEGATIVE)
[2019-07-31 16:15] LABS: BACTERIA FEW /hpf (NEGATIVE); EPITHELIAL CELLS 0-5 /hpf (0-5)
[2019-07-31 16:43] VITALS: BP 96/45
[2019-07-31 19:00] VITALS: BP 120/52
[2019-08-01 01:00] VITALS: BP 131/68
[2019-08-01 05:00] VITALS: BP 128/70
[2019-08-01 06:47] LABS: BASOPHILS 0 % (0-2); EOSINOPHILS 1.1 % (0-7); HEMATOCRIT 32.1 % (42.0-54.0); HEMOGLOBIN 9.9 g/dL (13.5-17.5); IMMATURE GRANULOCYTES 1.3 % (0-5); LYMPHOCYTES 5.9 % (15-50); MCH 30.2 pg (26.0-34.0); MCHC 30.8 g/dL (31.0-37.0); MCV 97.9 fL (80.0-100.0); MEAN PLATELET VOLUME 12.9 fL (7.4-10.4); MONOCYTES 6.4 % (2-11); NEUTROPHILS 85.3 % (40-80); PLATELET COUNT 52 10x3/uL (130-400); RBC 3.28 10x6/uL (4.20-6.10); RDW 14.8 % (11.5-14.5); WBC 8.5 10x3/uL (4.8-10.8)
[2019-08-01 07:08] LABS: ALBUMIN 2.2 g/dL (3.4-5.0); ANION GAP 17.7 mmol/L (8-16); BILIRUBIN - TOTAL 0.3 mg/dL (0.2-1.3); CARBON DIOXIDE 17.3 mmol/L (21.0-32.0); CREATININE - SERUM 3.9 mg/dL (0.6-1.3); PROTEIN - SERUM 5.3 g/dL (6.4-8.2); VANCOMYCIN - RANDOM 11.1 ug/mL (10.0-20.0)
[2019-08-01 07:22] LABS: CALCIUM 6.1 mg/dL (8.5-10.1)
[2019-08-01 08:45] VITALS: BP 93/46
[2019-08-01 09:29] LABS: PLATELET ESTIMATE DECREASED; ROULEAUX OCC
--- NOTE | 2019-08-01 12:29 | MORECARE ---
CASE MANAGEMENT DISCHARGE SUMMARY PATIENT: NAYAN TATUM UNIT: [id number] ADM DATE: 07/31/19 AGE: 79 : 39 SEX: M ROOM/BED: D.2215 AUTHOR: KERI GARCIA PHYSICIAN: REFERRING PHYSICIAN: RENEE RAMOS MD DATE OF SERVICE: 08/01/19 Discharge Plan Patient Name: NAYAN TATUM Facility: [facility]:[place] : 1940 Planned Disposition: Hospice Medical Facility Anticipated Discharge Date: Discharge Date: Expected LOS: Initial Reviewer: [id number] Initial Review Date: 07/30/2019 Generated: 08/01/19 1:29 pm Comments DCP- Discharge Planning Updated by [id number]: Radha Hicks on 07/31/19 2:[address] Patient Name: NAYAN TATUM Admission Status: ER Accout number: [id number] Admission Date: 07-31-2019 : 1940 Admission Diagnosis: Attending: RENEE RAMOS Current LOS: 1 Anticipated DC Date: Planned Disposition: Hospice Medical Facility Primary Insurance: AETNA MEDICARE PPO or HMO Discharge Planning Comments: CM met with patient to complete initial dc planning assessment. CM educated patient on the CM role and verbal consent given by patient to complete assessment. Patient lives at home where his stays by himself and is unsafe to return there is he is to live by himself. Patient spoke to me at length about wanting hospice and if possible would like to be at home, but unsure if that is possible. He asked that I speak with his niece Jeni, who is his POA. He has a walker, converter, home o2, bsc, wheelchair. At this time he is total care. He is too weak to ambulate. He talked about wanting to with dignity. He asked that I call Jeni & speak with her. I spoke with Jeni at length about hospice and she would like to speak to her family and then also speak with him tomorrow. Spoke about [facility] where he could possibly be inpatient. I will speak with her and the patient again tomorrow. Patient is current with [facility]. CM will continue to follow and will assist as needed with dc plans/needs. Notcher: Radha Hicks DCPIA - Discharge Planning Initial Assessment Updated by [email or web address]: Radha Hicks on 07/31/19 3:28 pm * Is the patient Alert and Oriented? Yes * How many steps to enter\exit or inside your home? * PCP [facility]UELANGEL * Pharmacy [facility] * Preadmission Environment Home Alone * ADLs Total Dependent * Equipment Bedside Commode Rolling Walker Walker Wheelchair * Other Equipment CONVERTER * List name and contact numbers for known caregivers / representatives who currently or will assist patient after discharge: JENI ([facility] [phone] * Verbal permission to speak to the caregivers and representatives has been obtained from the patient. N/A * Community resources currently utilized Home Health * Please name any agencies selected above. [facility] * Additional services required to return to the preadmission environment? Yes * Can the patient safely return to the preadmission environment? No * Has this patient been hospitalized within the prior 30 days at any hospital? No External Providers External Provider: [facility] Next Contact Date: Service Request Date: Service Type: Resolution: Reviewer: Comments: Coverage Notice Reviewer: [id number] Darren Hester Notice Issued Date-Time: 07/30/2019 18:15 Notice Type: Medicare Outpatient Observation Notice Notice Delivered To: Patient Relationship to Patient: Self Tip Finisher Name: Nayan Tatum Delivery Method: HAND - Hand Delivered Floresita Days: Prior Verbal Notification: Recipient Understood Notice: Yes Recipient Signature: Yes Med Rec Note Co-signed by Attending: Coverage Notice Comment: FRENCH delivered to and signed by patient. Copy placed on chart. Reviewer: [id number] - Radha Hicks Notice Issued Date-Time: 07/31/2019 14:15 Notice Type: Patient Choice Letter Notice Delivered To: Patient Relationship to Patient: Tip Finisher Name: Delivery Method: - Floresita Days: Prior Verbal Notification: Recipient Understood Notice: Recipient Signature: Med Rec Note Co-signed by Attending: Coverage Notice Comment: Last DP export: 07/31/19 2:41 Patient Name: NAYAN TATUM Page 42993 at 1229 All edits/amendments must be made on the electronic document DICTATION DATE: 08/01/191228 ADDICTION PROFESSIONAL: KIRAN 08/01/191228 RPT#: [id number] DC DATE: STATUS: ADM IN [facility] [address] [place] [address] END OF REPORT
--- NOTE | 2019-08-01 12:37 | MORECARE ---
CASE MANAGEMENT DISCHARGE SUMMARY PATIENT: NAYAN TATUM UNIT: [id number] ADM DATE: 07/31/19 AGE: 79 : 39 SEX: M ROOM/BED: D.2215 AUTHOR: JOSEDOC PHYSICIAN: REFERRING PHYSICIAN: RENEE RAMOS MD DATE OF SERVICE: 08/01/19 Discharge Plan Patient Name: NAYAN TATUM Facility: [facility]:[place] : 1940 Planned Disposition: Hospice Medical Facility Anticipated Discharge Date: Discharge Date: Expected LOS: Initial Reviewer: [id number] Initial Review Date: 07/30/2019 Generated: 08/01/19 1:36 pm Comments DCP- Discharge Planning Updated by [id number]: Radha Hicks on 08/01/19 11:[address] SPOKE WITH PATIENT AND POA (JENI) ABOUT WHAT HIS WISHES ARE. HE NOW WOULD LIKE TO WAIT ON HOSPICE AND GO TO [facility]. HE WOULD LIKE TO SEE WHAT THE MRI SHOW'S, HOW HE PROGRESSES WITH STRENGTH AND CHEMO. WE SPOKE ABOUT FEEDING TUBE AND HE STATED HE WILL WAIT/LAST RESORT IF HE NEEDED IT. I HAVE CALLED [facility] TO START THE PROCESS FOR A REFERRAL. CM TO FOLLOW AND ASSIST WITH DC PLANNING. DCP- Discharge Planning Updated by [id number]: Radha Hicks on 07/31/19 2:[address] Patient Name: NAYAN TATUM Admission Status: ER Accout number: [id number] Admission Date: 07-31-2019 : 1940 Admission Diagnosis: Attending: RENEE RAMOS Current LOS: 1 Anticipated DC Date: Planned Disposition: Hospice Medical Facility Primary Insurance: AETNA MEDICARE PPO or HMO Discharge Planning Comments: CM met with patient to complete initial dc planning assessment. CM educated patient on the CM role and verbal consent given by patient to complete assessment. Patient lives at home where his stays by himself and is unsafe to return there is he is to live by himself. Patient spoke to me at length about wanting hospice and if possible would like to be at home, but unsure if that is possible. He asked that I speak with his niece Jeni, who is his POA. He has a walker, converter, home o2, bsc, wheelchair. At this time he is total care. He is too weak to ambulate. He talked about wanting to with dignity. He asked that I call Jeni & speak with her. I spoke with Jeni at length about hospice and she would like to speak to her family and then also speak with him tomorrow. Spoke about [facility] where he could possibly be inpatient. I will speak with her and the patient again tomorrow. Patient is current with [facility]. CM will continue to follow and will assist as needed with dc plans/needs. Cannon Pinion Adjuster: Radha Hicks DCPIA - Discharge Planning Initial Assessment Updated by [email or web address]: Radha Hicks on 07/31/19 3:28 pm * Is the patient Alert and Oriented? Yes * How many steps to enter\exit or inside your home? * PCP [facility]UELANGEL * Pharmacy [facility] * Preadmission Environment Home Alone * ADLs Total Dependent * Equipment Bedside Commode Rolling Walker Walker Wheelchair * Other Equipment CONVERTER * List name and contact numbers for known caregivers / representatives who currently or will assist patient after discharge: JENI (POA) [phone] * Verbal permission to speak to the caregivers and representatives has been obtained from the patient. N/A * Community resources currently utilized Home Health * Please name any agencies selected above. [facility] * Additional services required to return to the preadmission environment? Yes * Can the patient safely return to the preadmission environment? No * Has this patient been hospitalized within the prior 30 days at any hospital? No Coverage Notice Reviewer: [id number] - Celine Hester Notice Issued Date-Time: 07/30/2019 18:15 Notice Type: Medicare Outpatient Observation Notice Notice Delivered To: Patient Relationship to Patient: Self Product Analyst Name: Tashifrancisco j MccarthyKalin Delivery Method: HAND - Hand Delivered Floresita Days: Prior Verbal Notification: Recipient Understood Notice: Yes Recipient Signature: Yes Med Rec Note Co-signed by Attending: Coverage Notice Comment: FRENCH delivered to and signed by patient. Copy placed on chart. Reviewer: [id number] - Radha Hicks Notice Issued Date-Time: 07/31/2019 14:15 Notice Type: Patient Choice Letter Notice Delivered To: Patient Relationship to Patient: Product Analyst Name: Delivery Method: - Floresita Days: Prior Verbal Notification: Recipient Understood Notice: Recipient Signature: Med Rec Note Co-signed by Attending: Coverage Notice Comment: Last DP export: 08/01/19 11:29 Patient Name: NYAAN TATMU Page 84211 at 1237 All edits/amendments must be made on the electronic document DICTATION DATE: 08/01/19 1236 BOTTOM STOP ATTACHER: KIRAN 08/01/19 1236 RPT#: [id number] DC DATE: STATUS: ADM IN [facility] [address] [place] [address] END OF REPORT
[2019-08-01 12:43] VITALS: BP 91/42
[2019-08-01 16:45] VITALS: BP 101/45
[2019-08-01 20:01] VITALS: BP 98/54
[2019-08-02] VITALS: BP 89/44
[2019-08-02 04:00] VITALS: BP 104/49
[2019-08-02 07:59] VITALS: BP 97/51
[2019-08-02 12:42] VITALS: BP 94/47
[2019-08-02 17:32] VITALS: BP 97/41
[2019-08-02 20:00] VITALS: BP 94/45
[2019-08-03 04:00] VITALS: BP 82/44
[2019-08-03 05:14] LABS: BASOPHILS 0.1 % (0-2); EOSINOPHILS 1.2 % (0-7); HEMATOCRIT 28.9 % (42.0-54.0); HEMOGLOBIN 9.1 g/dL (13.5-17.5); IMMATURE GRANULOCYTES 0.8 % (0-5); LYMPHOCYTES 5.9 % (15-50); MCH 30.4 pg (26.0-34.0); MCHC 31.5 g/dL (31.0-37.0); MCV 96.7 fL (80.0-100.0); MEAN PLATELET VOLUME 11.3 fL (7.4-10.4); MONOCYTES 5.2 % (2-11); NEUTROPHILS 86.8 % (40-80); RBC 2.99 10x6/uL (4.20-6.10); RDW 14.9 % (11.5-14.5)
[2019-08-03 05:16] LABS: PLATELET COUNT 67 10x3/uL (130-400); WBC 12.6 10x3/uL (4.8-10.8)
[2019-08-03 05:43] LABS: ANION GAP 20.3 mmol/L (8-16); CARBON DIOXIDE 14.9 mmol/L (21.0-32.0); POTASSIUM - SERUM 5.2 mmol/L (3.5-5.1); VANCOMYCIN - RANDOM 21.8 ug/mL (10.0-20.0)
[2019-08-03 05:44] LABS: CALCIUM 5.9 mg/dL (8.5-10.1)
[2019-08-03 07:49] VITALS: BP 86/44
[2019-08-03 13:10] VITALS: BP 88/43
[2019-08-03 16:58] VITALS: BP 85/44
[2019-08-03 21:25] VITALS: BP 88/49
[2019-08-03 22:20] LABS: APPEARANCE HAZY (CLEAR); BILIRUBIN NEGATIVE (NEGATIVE); COLOR YELLOW (YELLOW); GLUCOSE NEGATIVE (NEGATIVE); KETONE NEGATIVE (NEGATIVE); NITRITE NEGATIVE (NEGATIVE); PROTEIN 1+ mg/dL (NEGATIVE); SPECIFIC GRAVITY 1.015 (1.005-1.020); UROBILINOGEN NORMAL (NORMAL)
[2019-08-03 22:21] LABS: EPITHELIAL CELLS 0-5 /hpf (0-5); RED CELLS - URINE 25-50 /hpf (0-5); WHITE CELLS - URINE 0-5 /hpf (NEGATIVE)
[2019-08-03 22:22] LABS: AMORPHOUS SEDIMENT <1+ /lpf (NONE SEEN); BACTERIA MODERATE /hpf (NEGATIVE)
[2019-08-04 00:17] VITALS: BP 110/46
[2019-08-04 04:47] VITALS: BP 100/48
[2019-08-04 07:56] VITALS: BP 95/36
--- NOTE | 2019-08-04 08:09 | MORECARE ---
CASE MANAGEMENT DISCHARGE SUMMARY PATIENT: NAYAN TATUM UNIT: [id number] ADM DATE: 07/31/19 AGE: 79 : 39 SEX: M ROOM/BED: D.2215 AUTHOR: KERI GARCIA PHYSICIAN: REFERRING PHYSICIAN: RENEE RAMOS MD DATE OF SERVICE: 08/04/19 Discharge Plan Patient Name: NAYAN TATUM Facility: [facility]:[place] : 1940 Planned Disposition: Hospice Medical Facility Anticipated Discharge Date: Discharge Date: Expected LOS: Initial Reviewer: [id number] Initial Review Date: 07/30/2019 Generated: 08/04/19 9:09 am Comments DCP- Discharge Planning Updated by [email or web address]: Radha Hicks on 08/04/19 7:[address] additional clinicals sent to [facility] to start the process for auth DCP- Discharge Planning Updated by [id number]: Radha Hicks on 08/01/19 11:[address] SPOKE WITH PATIENT AND POA (JENI) ABOUT WHAT HIS WISHES ARE. HE NOW WOULD LIKE TO WAIT ON HOSPICE AND GO TO [place]. HE WOULD LIKE TO SEE WHAT THE MRI SHOW'S, HOW HE PROGRESSES WITH STRENGTH AND CHEMO. WE SPOKE ABOUT FEEDING TUBE AND HE STATED HE WILL WAIT/LAST RESORT IF HE NEEDED IT. I HAVE CALLED [place] TO START THE PROCESS FOR A REFERRAL. CM TO FOLLOW AND ASSIST WITH DC PLANNING. DCP- Discharge Planning Updated by [id number]: Radha Hicks on 07/31/19 2:[address] Patient Name: NAYAN TATUM Admission Status: ER Accout number: [id number] Admission Date: 07-31-2019 : 1940 Admission Diagnosis: Attending: ERNEE RAMOS Current LOS: 1 Anticipated DC Date: Planned Disposition: Hospice Medical Facility Primary Insurance: AETNA MEDICARE PPO or HMO Discharge Planning Comments: CM met with patient to complete initial dc planning assessment. CM educated patient on the CM role and verbal consent given by patient to complete assessment. Patient lives at home where his stays by himself and is unsafe to return there is he is to live by himself. Patient spoke to me at length about wanting hospice and if possible would like to be at home, but unsure if that is possible. He asked that I speak with his niece Jeni, who is his POA. He has a walker, converter, home o2, bsc, wheelchair. At this time he is total care. He is too weak to ambulate. He talked about wanting to with dignity. He asked that I call Jeni & speak with her. I spoke with Jeni at length about hospice and she would like to speak to her family and then also speak with him tomorrow. Spoke about [facility] where he could possibly be inpatient. I will speak with her and the patient again tomorrow. Patient is current with [facility]. CM will continue to follow and will assist as needed with dc plans/needs. Pensions Retirement Plan Specialist: Radha Hicks DCPIA - Discharge Planning Initial Assessment Updated by [email or web address]: Radha Hicks on 07/31/19 3:28 pm * Is the patient Alert and Oriented? Yes * How many steps to enter\exit or inside your home? * PCP [facility] * Pharmacy [facility] * Preadmission Environment Home Alone * ADLs Total Dependent * Equipment Bedside Commode Rolling Walker Walker Wheelchair * Other Equipment CONVERTER * List name and contact numbers for known caregivers / representatives who currently or will assist patient after discharge: JENI BETRRAND) [phone] * Verbal permission to speak to the caregivers and representatives has been obtained from the patient. N/A * Community resources currently utilized Home Health * Please name any agencies selected above. [facility] * Additional services required to return to the preadmission environment? Yes * Can the patient safely return to the preadmission environment? No * Has this patient been hospitalized within the prior 30 days at any hospital? No Coverage Notice Reviewer: [id number] - Celine Hester Notice Issued Date-Time: 07/30/2019 18:15 Notice Type: Medicare Outpatient Observation Notice Notice Delivered To: Patient Relationship to Patient: Self Web Master Name: Nayan Tatum Delivery Method: HAND - Hand Delivered Floresita Days: Prior Verbal Notification: Recipient Understood Notice: Yes Recipient Signature: Yes Med Rec Note Co-signed by Attending: Coverage Notice Comment: FRENCH delivered to and signed by patient. Copy placed on chart. Reviewer: [id number] - Radha Hicks Notice Issued Date-Time: 07/31/2019 14:15 Notice Type: Patient Choice Letter Notice Delivered To: Patient Relationship to Patient: Web Master Name: Delivery Method: - Floresita Days: Prior Verbal Notification: Recipient Understood Notice: Recipient Signature: Med Rec Note Co-signed by Attending: Coverage Notice Comment: Last DP export: 08/01/19 11:37 Patient Name: NAYAN TATUM Page 75215 at 0809 All edits/amendments must be made on the electronic document DICTATION DATE: 08/04/19808 MICROPHONE BOOM OPERATOR: KIRAN 08/04/19808 RPT#: [id number] DC DATE: STATUS: ADM IN [facility] [address] [place] [address] END OF REPORT
--- NOTE | 2019-08-04 12:15 | MORECARE ---
CASE MANAGEMENT DISCHARGE SUMMARY PATIENT: NAYAN TATUM UNIT: [id number] ADM DATE: 07/31/19 AGE: 79 : 39 SEX: M ROOM/BED: D.2215 AUTHOR: KERI GARCIA PHYSICIAN: REFERRING PHYSICIAN: RENEE RAMOS MD DATE OF SERVICE: 08/04/19 Discharge Plan Patient Name: NAYAN TATUM Facility: [facility]:[place] : 1940 Planned Disposition: Hospice Medical Facility Anticipated Discharge Date: Discharge Date: Expected LOS: Initial Reviewer: [email or web address] Initial Review Date: 07/30/2019 Generated: 08/04/19 1:15 pm Comments DCP- Discharge Planning Updated by [email or web address]: Radha Hicks on 08/04/19 11:[address] referral sent to [facility]. I spoke with Lenora. DCP- Discharge Planning Updated by [email or web address]: Radha Hicks on 08/04/19 7:[address] additional clinicals sent to [place] to start the process for auth DCP- Discharge Planning Updated by [email or web address]: Radha Hicks on 08/01/19 11:[address] SPOKE WITH PATIENT AND POA (JENI) ABOUT WHAT HIS WISHES ARE. HE NOW WOULD LIKE TO WAIT ON HOSPICE AND GO TO [place]. HE WOULD LIKE TO SEE WHAT THE MRI SHOW'S, HOW HE PROGRESSES WITH STRENGTH AND CHEMO. WE SPOKE ABOUT FEEDING TUBE AND HE STATED HE WILL WAIT/LAST RESORT IF HE NEEDED IT. I HAVE CALLED [facility] TO START THE PROCESS FOR A REFERRAL. CM TO FOLLOW AND ASSIST WITH DC PLANNING. DCP- Discharge Planning Updated by [email or web address]: Radha Hicks on 07/31/19 2:[address] Patient Name: NAYAN TATUM Admission Status: ER Accout number: [id number] Admission Date: 07-31-2019 : 1940 Admission Diagnosis: Attending: REENE RAMOS Current LOS: 1 Anticipated DC Date: Planned Disposition: Hospice Medical Facility Primary Insurance: AETNA MEDICARE PPO or HMO Discharge Planning Comments: CM met with patient to complete initial dc planning assessment. CM educated patient on the CM role and verbal consent given by patient to complete assessment. Patient lives at home where his stays by himself and is unsafe to return there is he is to live by himself. Patient spoke to me at length about wanting hospice and if possible would like to be at home, but unsure if that is possible. He asked that I speak with his niece Jeni, who is his POA. He has a walker, converter, home o2, bsc, wheelchair. At this time he is total care. He is too weak to ambulate. He talked about wanting to with dignity. He asked that I call Jeni & speak with her. I spoke with Jeni at length about hospice and she would like to speak to her family and then also speak with him tomorrow. Spoke about [facility] where he could possibly be inpatient. I will speak with her and the patient again tomorrow. Patient is current with [facility]. CM will continue to follow and will assist as needed with dc plans/needs. Rotary Helper: Radha Hicks DCPIA - Discharge Planning Initial Assessment Updated by [id number]: Radha Hicks on 07/31/19 3:28 pm * Is the patient Alert and Oriented? Yes * How many steps to enter\exit or inside your home? * PCP [facility]ANG[facility] * [facility] * Preadmission Environment Home Alone * ADLs Total Dependent * Equipment Bedside Commode Rolling Walker Walker Wheelchair * Other Equipment CONVERTER * List name and contact numbers for known caregivers / representatives who currently or will assist patient after discharge: JENI (CYRUS) [phone] * Verbal permission to speak to the caregivers and representatives has been obtained from the patient. N/A * Community resources currently utilized Home Health * Please name any agencies selected above. [facility] * Additional services required to return to the preadmission environment? Yes * Can the patient safely return to the preadmission environment? No * Has this patient been hospitalized within the prior 30 days at any hospital? No External Providers External Provider: [facility] *(provides inpt [facility] Next Contact Date: Service Request Date: Service Type: Resolution: Reviewer: Comments: Coverage Notice Reviewer: [id number] Darren Hester Notice Issued Date-Time: 07/30/2019 18:15 Notice Type: Medicare Outpatient Observation Notice Notice Delivered To: Patient Relationship to Patient: Self Sql Manager Name: Nayan Tatum Delivery Method: HAND - Hand Delivered Floresita Days: Prior Verbal Notification: Recipient Understood Notice: Yes Recipient Signature: Yes Med Rec Note Co-signed by Attending: Coverage Notice Comment: FRENCH delivered to and signed by patient. Copy placed on chart. Reviewer: [id number] - Radha Hicks Notice Issued Date-Time: 07/31/2019 14:15 Notice Type: Patient Choice Letter Notice Delivered To: Patient Relationship to Patient: Sql Manager Name: Delivery Method: - Floresita Days: Prior Verbal Notification: Recipient Understood Notice: Recipient Signature: Med Rec Note Co-signed by Attending: Coverage Notice Comment: Last DP export: 08/04/19 7:09 Patient Name: NAYAN TATUM Page 57789 at 1215 All edits/amendments must be made on the electronic document DICTATION DATE: 08/04/19 121 CRATE OPENER: KIRAN 08/04/19 1214 RPT#: [id number] DC DATE: STATUS: ADM IN [facility] [address] [place] [address] END OF REPORT
--- NOTE | 2019-08-04 13:44 | MORECARE ---
CASE MANAGEMENT DISCHARGE SUMMARY PATIENT: NAYAN TATUM UNIT: [id number] ADM DATE: 07/31/19 AGE: 79 : 39 SEX: M ROOM/BED: D.2215 AUTHOR: JOSEDOC PHYSICIAN: REFERRING PHYSICIAN: RENEE RAMOS MD DATE OF SERVICE: 08/04/19 Discharge Plan Patient Name: NAYAN TATUM Facility: [facility]:[place] : 1940 Planned Disposition: Hospice Medical Facility Anticipated Discharge Date: Discharge Date: Expected LOS: Initial Reviewer: [id number] Initial Review Date: 07/30/2019 Generated: 08/04/19 2:43 pm Comments DCP- Discharge Planning Updated by [email or web address]: Radha Hicks on 08/04/19 12:[address] RICKY WITH [facility] HERE TO EVALUATE DCP- Discharge Planning Updated by [email or web address]: Radha Hicks on 08/04/19 11:[address] referral sent to [facility]. I spoke with Lenora. DCP- Discharge Planning Updated by [email or web address]: Radha Hicks on 08/04/19 7:[address] additional clinicals sent to [place] to start the process for auth DCP- Discharge Planning Updated by [email or web address]: Radha Hicks on 08/01/19 11:[address] SPOKE WITH PATIENT AND POA (JENI) ABOUT WHAT HIS WISHES ARE. HE NOW WOULD LIKE TO WAIT ON HOSPICE AND GO TO [place]. HE WOULD LIKE TO SEE WHAT THE MRI SHOW'S, HOW HE PROGRESSES WITH STRENGTH AND CHEMO. WE SPOKE ABOUT FEEDING TUBE AND HE STATED HE WILL WAIT/LAST RESORT IF HE NEEDED IT. I HAVE CALLED [place] TO START THE PROCESS FOR A REFERRAL. CM TO FOLLOW AND ASSIST WITH DC PLANNING. DCP- Discharge Planning Updated by [id number]: Radha Hicks on 07/31/19 2:[address] Patient Name: NAYAN TATUM Admission Status: ER Accout number: [id number] Admission Date: 07-31-2019 : 1940 Admission Diagnosis: Attending: RENEE RAMOS Current LOS: 1 Anticipated DC Date: Planned Disposition: Hospice Medical Facility Primary Insurance: AETNA MEDICARE PPO or HMO Discharge Planning Comments: CM met with patient to complete initial dc planning assessment. CM educated patient on the CM role and verbal consent given by patient to complete assessment. Patient lives at home where his stays by himself and is unsafe to return there is he is to live by himself. Patient spoke to me at length about wanting hospice and if possible would like to be at home, but unsure if that is possible. He asked that I speak with his niece Jeni, who is his POA. He has a walker, converter, home o2, bsc, wheelchair. At this time he is total care. He is too weak to ambulate. He talked about wanting to with dignity. He asked that I call Jeni & speak with her. I spoke with Jeni at length about hospice and she would like to speak to her family and then also speak with him tomorrow. Spoke about [facility] where he could possibly be inpatient. I will speak with her and the patient again tomorrow. Patient is current with [facility]. CM will continue to follow and will assist as needed with dc plans/needs. Tram Driver: Radha Hicks DCPIA - Discharge Planning Initial Assessment Updated by [email or web address]: Radha Hicks on 07/31/19 3:28 pm * Is the patient Alert and Oriented? Yes * How many steps to enter\exit or inside your home? * PCP [facility] * [facility] * Preadmission Environment Home Alone * ADLs Total Dependent * Equipment Bedside Commode Rolling Walker Walker Wheelchair * Other Equipment CONVERTER * List name and contact numbers for known caregivers / representatives who currently or will assist patient after discharge: JENI (POA) [phone] * Verbal permission to speak to the caregivers and representatives has been obtained from the patient. N/A * Community resources currently utilized Home Health * Please name any agencies selected above. [facility] * Additional services required to return to the preadmission environment? Yes * Can the patient safely return to the preadmission environment? No * Has this patient been hospitalized within the prior 30 days at any hospital? No Coverage Notice Reviewer: [id number] Darren Hester Notice Issued Date-Time: 07/30/2019 18:15 Notice Type: Medicare Outpatient Observation Notice Notice Delivered To: Patient Relationship to Patient: Self Corporate Account Executive Name: Nayan Tatum Delivery Method: HAND - Hand Delivered Floresita Days: Prior Verbal Notification: Recipient Understood Notice: Yes Recipient Signature: Yes Med Rec Note Co-signed by Attending: Coverage Notice Comment: FRENCH delivered to and signed by patient. Copy placed on chart. Reviewer: [id number] Darren Hicks Notice Issued Date-Time: 07/31/2019 14:15 Notice Type: Patient Choice Letter Notice Delivered To: Patient Relationship to Patient: Corporate Account Executive Name: Delivery Method: - Floresita Days: Prior Verbal Notification: Recipient Understood Notice: Recipient Signature: Med Rec Note Co-signed by Attending: Coverage Notice Comment: Reviewer: [id number] Hicks Notice Issued Date-Time: 08/04/2019 8:30 Notice Type: Patient Choice Letter Notice Delivered To: Family Member Relationship to Patient: Power of Ad Clerk Corporate Account Executive Name: JENI Delivery Method: HAND - Hand Delivered Floresita Days: Prior Verbal Notification: Recipient Understood Notice: Yes Recipient Signature: Yes Med Rec Note Co-signed by Attending: Coverage Notice Comment: Last DP export: 08/04/19 11:15 Patient Name: NAYAN TATUM Page [id number] at 1344 All edits/amendments must be made on the electronic document DICTATION DATE: 08/04/19 1343 COMMERCIAL RELIEF DRIVER: KIRAN 08/04/19 1343 RPT#: [id number] DC DATE: STATUS: ADM IN [facility] [address] [place] [address] END OF REPORT
[2019-08-04] MEDS ORDERED: DURAGESIC1 PATCH .7 TRANSDERM (15:37)
[2019-08-04] MEDS ORDERED: BUMEX 1 MG/1 MG/4 ML IV (15:37)
[2019-08-04] MEDS ORDERED: ULTRAM50 MG PO (15:37)
[2019-08-04] MEDS ORDERED: VANCOMYCIN 1 GM/1 G1 IV (15:37)
[2019-08-04] MEDS ORDERED: NICODERM C1 PATCH .1 TRANSDERM (15:37)
[2019-08-04] MEDS ORDERED: MERREM 1 GM/NS 11 G1 IV (15:37)
[2019-08-04] MEDS ORDERED: ONCOLOGY MOUTHWASH PO (15:37)
[2019-08-04] MEDS ORDERED: PROTONIX40 MG PO (15:37)
[2019-08-04] MEDS ORDERED: LOVENOX60 MG/0.6 SC (15:37)
[2019-08-04] MEDS ORDERED: FISH OIL 1,0001 CA1 PO (15:37)
--- NOTE | 2019-08-04 15:49 | MORECARE ---
CASE MANAGEMENT DISCHARGE SUMMARY PATIENT: NAYAN TATUM UNIT: [id number] ADM DATE: 07/31/19 AGE: 79 : 39 SEX: M ROOM/BED: D.2215 AUTHOR: JOSE,DOC PHYSICIAN: REFERRING PHYSICIAN: RENEE RAMOS MD DATE OF SERVICE: 08/04/19 Discharge Plan Patient Name: NAYAN TATUM Facility: [facility]:[place] : 1940 Planned Disposition: Hospice Medical Facility Anticipated Discharge Date: Discharge Date: Expected LOS: Initial Reviewer: [id number] Initial Review Date: 07/30/2019 Generated: 08/04/19 4:48 pm Comments DCP- Discharge Planning Updated by [email or web address]: Radha Hicks on 08/04/19 2:[address] PATIENT HAS BEEN ACCEPTED TO [facility] TO A [facility] BED. HE WILL TRANSPORT [facility]IA [facility] DCP- Discharge Planning Updated by [email or web address]: Radha Hicks on 08/04/19 12:[address] RICKY WITH [facility] HERE TO EVALUATE DCP- Discharge Planning Updated by [email or web address]: Radha Hicks on 08/04/19 11:[address] referral sent to [facility]. I spoke with Lenora. DCP- Discharge Planning Updated by [id number]: Radha Hicks on 08/04/19 7:[address] additional clinicals sent to [place] to start the process for auth DCP- Discharge Planning Updated by [id number]: Radha Hicks on 08/01/19 11:[address] SPOKE WITH PATIENT AND CYRUS (JENI) ABOUT WHAT HIS WISHES ARE. HE NOW WOULD LIKE TO WAIT ON HOSPICE AND GO TO [place]. HE WOULD LIKE TO SEE WHAT THE MRI SHOW'S, HOW HE PROGRESSES WITH STRENGTH AND CHEMO. WE SPOKE ABOUT FEEDING TUBE AND HE STATED HE WILL WAIT/LAST RESORT IF HE NEEDED IT. [facility] FOR A REFERRAL. CM TO FOLLOW AND ASSIST WITH DC PLANNING. DCP- Discharge Planning Updated by [email or web address]: Radha Hicks on 07/31/19 2:[address] Patient Name: NAYAN TATUM Admission Status: ER Accout number: [id number] Admission Date: 07-31-2019 : 1940 Admission Diagnosis: Attending: RENEE RAMOS Current LOS: 1 Anticipated DC Date: Planned Disposition: Hospice Medical Facility Primary Insurance: AETNA MEDICARE PPO or HMO Discharge Planning Comments: CM met with patient to complete initial dc planning assessment. CM educated patient on the CM role and verbal consent given by patient to complete assessment. Patient lives at home where his stays by himself and is unsafe to return there is he is to live by himself. Patient spoke to me at length about wanting hospice and if possible would like to be at home, but unsure if that is possible. He asked that I speak with his niece Jeni, who is his POA. He has a walker, converter, home o2, bsc, wheelchair. At this time he is total care. He is too weak to ambulate. He talked about wanting to with dignity. He asked that I call Jeni & speak with her. I spoke with Jeni at length about hospice and she would like to speak to her family and then also speak with him tomorrow. Spoke about [facility] where he could possibly be inpatient. I will speak with her and the patient again tomorrow. Patient is current with [facility]. CM will continue to follow and will assist as needed with dc plans/needs. Clerical Aide Teacher: Radha Hicks DCPIA - Discharge Planning Initial Assessment Updated by [email or web address]: Radha Hicks on 07/31/19 3:28 pm * Is the patient Alert and Oriented? Yes * How many steps to enter\exit or inside your home? * PCP [facility] * [facility]acy [facility] * Preadmission Environment Home Alone * ADLs Total Dependent * Equipment Bedside Commode Rolling Walker Walker Wheelchair * Other Equipment CONVERTER * List name and contact numbers for known caregivers / representatives who currently or will assist patient after discharge: JENI (POA) [phone] * Verbal permission to speak to the caregivers and representatives has been obtained from the patient. N/A * Community resources currently utilized Home Health * Please name any agencies selected above. [facility] * Additional services required to return to the preadmission environment? Yes * Can the patient safely return to the preadmission environment? No * Has this patient been hospitalized within the prior 30 days at any hospital? No Coverage Notice Reviewer: [id number] Darren Hester Notice Issued Date-Time: 07/30/2019 18:15 Notice Type: Medicare Outpatient Observation Notice Notice Delivered To: Patient Relationship to Patient: Self Special Technical Operations Officer Name: Nayan Tatum Delivery Method: HAND - Hand Delivered Floresita Days: Prior Verbal Notification: Recipient Understood Notice: Yes Recipient Signature: Yes Med Rec Note Co-signed by Attending: Coverage Notice Comment: FRENCH delivered to and signed by patient. Copy placed on chart. Reviewer: [id number] Darren Hicks Notice Issued Date-Time: 07/31/2019 14:15 Notice Type: Patient Choice Letter Notice Delivered To: Patient Relationship to Patient: Special Technical Operations Officer Name: Delivery Method: - Floresita Days: Prior Verbal Notification: Recipient Understood Notice: Recipient Signature: Med Rec Note Co-signed by Attending: Coverage Notice Comment: Reviewer: [email or web address] Darren Hicks Notice Issued Date-Time: 08/04/2019 8:30 Notice Type: Patient Choice Letter Notice Delivered To: Family Member Relationship to Patient: Power of Umbrella Mender Special Technical Operations Officer Name: JENI Delivery Method: HAND - Hand Delivered Floresita Days: Prior Verbal Notification: Recipient Understood Notice: Yes Recipient Signature: Yes Med Rec Note Co-signed by Attending: Coverage Notice Comment: Last DP export: 08/04/19 12:44 Patient Name: NAYAN TATUM Page [id number] at 1549 All edits/amendments must be made on the electronic document DICTATION DATE: 08/04/191547 SPRING MACHINE OPERATOR: KIRAN 08/04/19 154 RPT#: [id number] DC DATE: STATUS: ADM IN [facility] [address] [place] [address] END OF REPORT
[2019-08-04 16:38] VITALS: BP 94/32
--- NOTE | 2019-08-05 14:34 | MORECARE ---
CASE MANAGEMENT DISCHARGE SUMMARY PATIENT: NAYAN TATUM UNIT: [id number] ADM DATE: 07/31/19 AGE: 79 : 39 SEX: M ROOM/BED: D.2215 AUTHOR: JOSE,DOC PHYSICIAN: REFERRING PHYSICIAN: ERNEE RAMOS MD DATE OF SERVICE: 08/05/19 Discharge Plan Patient Name: NAYAN TATUM Facility: [facility]:[place] : 1940 Planned Disposition: Hospice Medical Facility Anticipated Discharge Date: Discharge Date: 08/04/2019 Expected LOS: 0 Initial Reviewer: [id number] Initial Review Date: 07/30/2019 Generated: 08/05/19 3:33 pm Comments DCP- Discharge Planning Updated by [id number]: Radha Hicks on 08/04/19 2:[address] PATIENT HAS BEEN ACCEPTED TO [facility] TO A [facility] BED. HE WILL TRANSPORT [facility]IA [facility] DCP- Discharge Planning Updated by [id number]: Radha Hicks on 08/04/19 12:[address] RICKY WITH [facility] HERE TO EVALUATE DCP- Discharge Planning Updated by [id number]: Radha Hicks on 08/04/19 11:[address] referral sent to [facility]. I spoke with Lenora. DCP- Discharge Planning Updated by [id number]: Radha Hicks on 08/04/19 7:[address] additional clinicals sent to [place] to start the process for auth DCP- Discharge Planning Updated by [email or web address]: Radha Hicks on 08/01/19 11:[address] SPOKE WITH PATIENT AND POLorenzo (JENI) ABOUT WHAT HIS WISHES ARE. HE NOW WOULD LIKE TO WAIT ON HOSPICE AND GO TO [place]. HE WOULD LIKE TO SEE WHAT THE MRI SHOW'S, HOW HE PROGRESSES WITH STRENGTH AND CHEMO. WE SPOKE ABOUT FEEDING TUBE AND HE STATED HE WILL WAIT/LAST RESORT IF HE NEEDED IT. [facility] [place] FOR A REFERRAL. CM TO FOLLOW AND ASSIST WITH DC PLANNING. DCP- Discharge Planning Updated by [email or web address]: Radha Hicks on 07/31/19 2:[address] Patient Name: NAYAN TATUM Admission Status: ER Accout number: [id number] Admission Date: 07-31-2019 : 1940 Admission Diagnosis: Attending: RENEE RAMOS Current LOS: 1 Anticipated DC Date: Planned Disposition: Hospice Medical Facility Primary Insurance: AETNA MEDICARE PPO or HMO Discharge Planning Comments: CM met with patient to complete initial dc planning assessment. CM educated patient on the CM role and verbal consent given by patient to complete assessment. Patient lives at home where his stays by himself and is unsafe to return there is he is to live by himself. Patient spoke to me at length about wanting hospice and if possible would like to be at home, but unsure if that is possible. He asked that I speak with his niece Jeni, who is his POA. He has a walker, converter, home o2, bsc, wheelchair. At this time he is total care. He is too weak to ambulate. He talked about wanting to with dignity. He asked that I call Jeni & speak with her. I spoke with Jeni at length about hospice and she would like to speak to her family and then also speak with him tomorrow. Spoke about [facility] where he could possibly be inpatient. I will speak with her and the patient again tomorrow. Patient is current with [facility]. CM will continue to follow and will assist as needed with dc plans/needs. Machine Builder: Radha Hicks DCPIA - Discharge Planning Initial Assessment Updated by [id number]: Radha Hicks on 07/31/19 3:28 pm * Is the patient Alert and Oriented? Yes * How many steps to enter\exit or inside your home? * PCP [facility] * Pharmacy [facility] * Preadmission Environment Home Alone * ADLs Total Dependent * Equipment Bedside Commode Rolling Walker Walker Wheelchair * Other Equipment CONVERTER * List name and contact numbers for known caregivers / representatives who currently or will assist patient after discharge: JENI (POA) [phone] * Verbal permission to speak to the caregivers and representatives has been obtained from the patient. N/A * Community resources currently utilized Home Health * Please name any agencies selected above. [facility] * Additional services required to return to the preadmission environment? Yes * Can the patient safely return to the preadmission environment? No * Has this patient been hospitalized within the prior 30 days at any hospital? No Coverage Notice Reviewer: [id number] Darren Hester Notice Issued Date-Time: 07/30/2019 18:15 Notice Type: Medicare Outpatient Observation Notice Notice Delivered To: Patient Relationship to Patient: Self Card Hand Name: Nayan Tatum Delivery Method: HAND - Hand Delivered Floresita Days: Prior Verbal Notification: Recipient Understood Notice: Yes Recipient Signature: Yes Med Rec Note Co-signed by Attending: Coverage Notice Comment: FRENCH delivered to and signed by patient. Copy placed on chart. Reviewer: [id number] Darren Hicks Notice Issued Date-Time: 07/31/2019 14:15 Notice Type: Patient Choice Letter Notice Delivered To: Patient Relationship to Patient: Card Hand Name: Delivery Method: - Floresita Days: Prior Verbal Notification: Recipient Understood Notice: Recipient Signature: Med Rec Note Co-signed by Attending: Coverage Notice Comment: Reviewer: [id number] Darren Hicks Notice Issued Date-Time: 08/04/2019 8:30 Notice Type: Patient Choice Letter Notice Delivered To: Family Member Relationship to Patient: Power of Apparel Manager Card Hand Name: JENI Delivery Method: HAND - Hand Delivered Floresita Days: Prior Verbal Notification: Recipient Understood Notice: Yes Recipient Signature: Yes Med Rec Note Co-signed by Attending: Coverage Notice Comment: Last DP export: 08/04/19 2:48 Patient Name: NAYAN TATUM Page 11751 at 1434 All edits/amendments must be made on the electronic document DICTATION DATE: 08/05/191432 BLACK STUDIES PROFESSOR: KIRAN 08/05/191432 RPT#: [id number] DC DATE:08/04/19 STATUS: DIS IN [facility] [address] [place] [address] END OF REPORT
--- NOTE | 2019-08-05 15:17 | EC ---
PATIENT:NAYAN TATUM DATE OF SERVICE: 07/31/19 SEX: M MEDICAL RECORD: [id number] DATE OF : 38 LOCATION:[facility] AGE OF PATIENT: 79 ADMISSION DATE: 07/31/19 REFERRING PHYSICIAN: INTERPRETING PHYSICIAN: SOCO MENSAH MD ECHOCARDIOGRAM REPORT ECHO CHARGES 4 ECHO COMPLETE Date: 08/03/19 CLINICAL DIAGNOSIS: CHF ECHOCARDIOGRAPHIC MEASUREMENTS (adult normal given) AC root (d.<3.7cm) 3.6 cm LV Septum d (<1.2 cm> 1.3 cm Valve Excursion 1.4 cm LV Septum (systole) 1.6 cm Left Atria (s.<4.0cm> 4.7 cm LVPW d(<1.2cm) 1.1 cm RV (d.<2.3cm) 3.8 cm LVPW (sytole) 1.3 cm LV diastole(<5.6CM) 5.0 cm MV E-F(>70mm/sec) cm LV systole 4.0 cm LVOT Diameter 2.0 cm MV exc.(>10mm) cm Est.ejection fraction (50-75%) % DOPPLER: LVIT cm/sec A 102 cm/sec E 75 cm/sec LA cm/sec RVSP 52.7 mmHg LVOT 113 cm/sec AOP1/2T m/s Asc. Ao 134 cm/sec RVOT 106 cm/sec RA cm/sec PA 128 cm/sec AV Gradient Peak 7.1 mmHg AV Mean 4.4 mmHg AV Area 2.8 cm MV Gradient Peak 6.7 mmHg MV Mean 3.1 mmHg MV Area cm COMMENTS: Machinist Linotype: Gertrudis HORNER Specialties Operator: 3 Dr. Waldrop TAPE# PACS Pericardial Effusion N DATE OF SERVICE: Adequate 2D, color-flow, spectral Doppler, and M-mode. Borderline LVH. LV internal dimensions are normal. Wall motion is normal. EF is greater than or equal to 55%. Aortic valve is tricuspid. No evidence of stenosis by Doppler interrogation. Left atrium is dilated at 4.7 cm. Mitral valve shows no prolapse. Trace MR. Right-sided chambers are grossly normal. Yupo-cm-vvmabpau TR. TRANSINT:[id number] Voice Confirmation ID: [id number] DOCUMENT ID: [id number] ECHOCARDIOGRAM REPORT [id number] NAYAN TATUM,SOCO Ventura MD at 1517 CC: [id number] DICTATION DATE: 08/04/19 110 [place] [employer]: 08/04/19 1200 DIS IN 08/04/19 [place] [id number] [place] [address]
== END 2019-08-04 17:15 | disposition home health service (06) | DRG 551 ==
LOC: D.ER 10:32 → OBSVTIME 13:36 → D.MS 13:36
PROVIDERS: Family Medicine; Internal Medicine Medical Oncology; Internal Medicine Nephrology; ADMIT Internal Medicine Nephrology; ATTEND Internal Medicine Nephrology
DX: M43.8X8 Other specified deforming dorsopathies, sacral and sacrococcygeal region (principal); J18.9 Pneumonia, unspecified organism; J96.21 Acute and chronic respiratory failure with hypoxia; N17.0 Acute kidney failure with tubular necrosis; C34.90 Malignant neoplasm of unspecified part of unspecified bronchus or lung; C79.9 Secondary malignant neoplasm of unspecified site; I50.32 Chronic diastolic (congestive) heart failure; N17.9 Acute kidney failure, unspecified; I13.0 Hypertensive heart and chronic kidney disease with heart failure and stage 1 through stage 4 chronic kidney disease, or unspecified chronic kidney disease; N18.4 Chronic kidney disease, stage 4 (severe); W19.XXXA Unspecified fall, initial encounter; Z91.81 History of falling; E78.5 Hyperlipidemia, unspecified; J44.9 Chronic obstructive pulmonary disease, unspecified; G47.33 Obstructive sleep apnea (adult) (pediatric); N40.0 Benign prostatic hyperplasia without lower urinary tract symptoms; N18.9 Chronic kidney disease, unspecified; G62.9 Polyneuropathy, unspecified; D64.81 Anemia due to antineoplastic chemotherapy; D69.59 Other secondary thrombocytopenia; E83.51 Hypocalcemia